=== PATIENT | female | born 1960 | race African-American/Black ===

== ENCOUNTER 2018-04-25 23:08 | Inpatient (IN) | payer OTHER ==
[2018-04-26] MEDS ORDERED: NALOXONE 0.4 MG/ML VIAL ONE ×2 (00:14→01:30)
[2018-04-26 00:15] LABS: Arterial Blood Carboxyhemoglob 1.8 % (0-1.5); Blood O2 Saturation 97.5 % (92-98.5)
[2018-04-26 01:45] LABS: Absolute Lymphocytes (CBC) 0.5 K/uL (0.7-4.9); Absolute Monocytes 0.3 K/uL (0.1-1.3); Absolute Neutrophil 3.9 K/uL (1.8-8.0); Basophils % 0.5 % (0-1.3); Eosinophils % 2.1 % (0-4.4); Hematocrit 44.6 % (36.0-45.0); Lymphocytes % 11.4 % (15.3-44.8); MCH 29.4 pg (27.0-35.0); MPV 8.5 fL (7.6-11.3); Monocytes % 5.6 % (3.3-12.3); RBC Red Blood Cell Count 4.64 M/uL (3.86-4.86)
[2018-04-26 01:47] LABS: Protime INR 1.16
[2018-04-26] MEDS ORDERED: FUROSEMIDE 20 MG/ 2ML VIAL ONE (01:58)
[2018-04-26 01:59] LABS: Urine Blood 3+ (NEG); Urine Glucose NEGATIVE (NEG); Urine Protein 2+ (NEG); Urine Specific Gravity >1.030 (1.005-1.030); Urine pH 5.5 (5.0-7.0)
[2018-04-26] MEDS ORDERED: FUROSEMIDE 40 MG/4 ML VIAL ONE (01:59)
[2018-04-26 02:06] LABS: ALT/SGPT 15 U/L (12-78); AST/SGOT 12 U/L (15-37); Albumin 3.6 g/dL (3.4-5.0); Alkaline Phosphatase 62 U/L (45-117); BUN Blood Urea Nitrogen 13 mg/dL (7-18); Bicarbonate 40 mmol/L (21-32); Bilirubin Direct 0.2 mg/dL (0-0.2); Bilirubin Total 0.5 mg/dL (0.2-1.0); Glucose Level 115 mg/dL (74-106); Magnesium 2.1 mg/dL (1.8-2.4); NT PRO-BNP 468 pg/mL (<125); Potassium 3.8 mmol/L (3.5-5.1); Protein, Total 8.3 g/dL (6.4-8.2); Sodium Level 143 mmol/L (136-145); Troponin (Emerg Dept Use Only) < 0.02 ng/mL (0.0-0.045)
[2018-04-26 02:49] LABS: Urine Bacteria LOADED /HPF (<20); Urine RBC <5 /HPF (NONE SEEN)
[2018-04-26 02:50] LABS: Urine Culture Reflex Order NOT NEEDED
[2018-04-26] MEDS ORDERED: ACETAMINOPHEN 500 MG TAB PO PRN (02:55)
[2018-04-26] MEDS ORDERED: ONDANSETRON 4 MG/2 ML VIAL IV PRN (02:55)
[2018-04-26] MEDS ORDERED: CEFTRIAXONE 1 GM/NS 50 ML 1 GM/50 ML BAG IV ONE (02:59)
[2018-04-26] MEDS ORDERED: CEFTRIAXONE/SWI 1gm 1 GM/10 ML SYR ONE (03:09)
[2018-04-26] MEDS ORDERED: METHYLPREDNISOLONE 125 MG INJ IV SCH (03:14)
--- NOTE | 2018-04-26 03:21 | EDPHYS ---
Physician Documentation [facility] Name: Navarro Baker Age: 58 yrs Sex: Female : 1960 Arrival Date: 04/25/2018 Time: 23:13 Bed 4 Private MD: Leonid Phan ED Physician Jacques Plummer HPI: 04/26 03:05 This 58 yrs old Black Female presents to ER via Wheelchair with complaints of sob. gs 03:05 pt seen lpta at another er dx with hypothyroid and sent home. family concerned as pt gs lethargic and has been like this for a couple of days.. 03:05 Unable to obtain HPI due to patient distress. gs Historical: - Allergies: 01:49 No Known Allergies; mg2 - Home Meds: 04/25 23:45 levothyroxine oral for Hypothyroidism [Active]; hydrocodone-acetaminophen 5-500 mg Oral tl3 tab [Active]; - PMHx: 04/26 01:49 Hypothyroidism; morbid obesity; mg2 - PSHx: 01:49 multiple plates on hip and legs; mg2 - Immunization history:: Adult Immunizations up to date. - Social history:: Smoking status: Patient/guardian denies using tobacco, never smoked. - Ebola Screening: : No symptoms or risks identified at this time. ROS: 03:05 All other systems are negative. gs Exam: 03:05 Head/Face: Normocephalic, atraumatic. Eyes: Pupils equal round and reactive to light, gs extra-ocular motions intact. Lids and lashes normal. Conjunctiva and sclera are non-icteric and not injected. Cornea within normal limits. Periorbital areas with no swelling, redness, or edema. ENT: Nares patent. No nasal discharge, no septal abnormalities noted. Tympanic membranes are normal and external auditory canals are clear. Oropharynx with no redness, swelling, or masses, exudates, or evidence of obstruction, uvula midline. Mucous membranes moist. Neck: Trachea midline, no thyromegaly or masses palpated, and no cervical lymphadenopathy. Supple, full range of motion without nuchal rigidity, or vertebral point tenderness. No Meningismus. Chest/axilla: Normal chest wall appearance and motion. Nontender with no deformity. No lesions are appreciated. 03:05 Abdomen/GI: Soft, non-tender, with normal bowel sounds. No distension or tympany. No guarding or rebound. No evidence of tenderness throughout. Back: No spinal tenderness. No costovertebral tenderness. Full range of motion. Skin: Warm, dry with normal turgor. Normal color with no rashes, no lesions, and no evidence of cellulitis. MS/ Extremity: Pulses equal, no cyanosis. Neurovascular intact. Full, normal range of motion. 03:05 Constitutional: The patient appears lethargic, in obvious distress, severely distressed. 03:05 Constitutional: The patient appears obese. 03:05 Cardiovascular: Rate: bradycardic, Rhythm: regular, Pulses: no pulse deficits are appreciated. 03:05 ECG was reviewed by the Attending Physician. 03:05 Respiratory: severe repiratory distress is noted, Respirations: shallow respirations, that is moderate, Breath sounds: are clear throughout. Vital Signs: 04/25 23:46 BP 117 / 76; Pulse 58; Resp 20; Pulse Ox 20% on R/A; Weight 226.8 kg; Height 5 ft. 4 tl3 in. (162.56 cm); 23:46 Pulse Ox 100% on 15% Non-rebreather mask; tl3 04/26 01:43 BP 155 / 111; Pulse 64; Resp 20; Pulse Ox 100% on 50% BiPAP; mg2 01:53 BP 114 / 58; Pulse 59; Resp 17; Pulse Ox 98% on BiPAP; tl3 02:30 BP 101 / 65; Pulse 55; Resp 20; Temp 97.9(A); Pulse Ox 96% on 50% BiPAP; mg2 03:15 BP 143 / 94; Pulse 64; Resp 18 S; Pulse Ox 100% on 35% BiPAP; ea 07:36 BP 104 / 66; Pulse 48; Resp 20; Pulse Ox 95% on 50% BiPAP; la1 04/25 23:46 Body Mass Index 85.82 (226.80 kg, 162.56 cm) tl3 MDM: 04/25 23:53 Patient medically screened. 04/26 03:05 Differential diagnosis: CHF exacerbation, Chronic Obstructive Pulmonary Disease gs Myocardial Infarction pneumonia. Data reviewed: vital signs, nurses notes. Response to treatment: the patient's symptoms have mildly improved after treatment. ED course: pt not deteriorating on bipap will closely monitor hold intubation. 04/26 00:01 Order name: Basic Metabolic Panel; Complete Time: 02:53 gs 04/26 00:01 Order name: CBC with Diff; Complete Time: 02:53 gs 04/26 00:01 Order name: LFT's; Complete Time: 02:53 gs 04/26 00:01 Order name: Magnesium; Complete Time: 02:53 gs 04/26 00:01 Order name: NT PRO-BNP; Complete Time: 02:53 gs 04/26 00:01 Order name: PT-INR; Complete Time: 02:53 gs 04/26 00:01 Order name: Troponin (emerg Dept Use Only); Complete Time: 02:53 gs 04/26 00:01 Order name: ABG; Complete Time: 01:51 gs 04/26 01:47 Order name: Urine Dipstick--Ancillary (enter results); Complete Time: 02:53 rg2 04/26 02:00 Order name: Urine Microscopic Only; Complete Time: 02:53 mg2 04/26 02:00 Order name: Urine Culture [facility] [place] 04/26 02:54 Order name: Blood Culture* 04/26 02:55 Order name: ABG 04/26 02:59 Order name: ABG Arterial Blood Gas EDCT 04/26 00:01 Order name: XRAY Chest (1 view) 04/26 00:01 Order name: BIPAP 04/26 02:59 Order name: NT PRO-BNP EDCT 04/26 02:59 Order name: NT PRO-BNP EDCT 04/26 02:59 Order name: NT PRO-BNP EDCT 04/26 02:59 Order name: Troponin I EDCT 04/26 02:59 Order name: Troponin I EDCT 04/26 02:59 Order name: Troponin I EDCT 04/26 02:59 Order name: Chest Single View EDCT 04/26 02:59 Order name: Chest Single View EDCT 04/26 03:01 Order name: CBC with Automated Diff EDCT 04/26 03:01 Order name: Comprehensive Metabolic Panel EDCT 04/26 03:01 Order name: Magnesium EDCT 04/26 03:01 Order name: Phosphorus EDCT 04/26 03:01 Order name: T4 Free EDCT 04/26 03:01 Order name: Thyroid Stimulating Hormone EDCT 04/26 00:01 Order name: EKG; Complete Time: 00:02 gs 09/16 00:01 Order name: Cardiac monitoring; Complete Time: 00:32 04/26 00:01 Order name: EKG - Nurse/Tech; Complete Time: 01:43 04/26 00:01 Order name: IV Saline Lock; Complete Time: 01:43 04/26 00:01 Order name: Labs collected and sent; Complete Time: 01:43 04/26 00:01 Order name: O2 Per Protocol; Complete Time: 00:32 04/26 00:01 Order name: O2 Sat Monitoring; Complete Time: 00:32 04/26 00:01 Order name: Urine Dipstick-Ancillary (obtain specimen); Complete Time: 01:43 04/26 02:59 Order name: CONS Physician Consult [facility] 04/26 02:59 Order name: Heart Healthy [facility] 04/26 02:59 Order name: Chest Single View EDCT EC:05 Rate is 49 beats/min. Rhythm is regular. TX interval is prolonged. QRS interval is gs normal. QT interval is normal. T waves are Flattened. Clinical impression: NSR w/ Non-specific ST/T Changes. Interpreted by me. Administered Medications: 01:42 Drug: NARcan 0.4 mg Route: IVP; Site: right jugular; mg2 01:52 Follow up: Response: No adverse reaction tl3 01:52 Follow up: Response: No change in condition tl3 01:51 Drug: NARcan 0.4 mg Route: IVP; Site: right jugular; tl3 01:52 Follow up: Response: No change in condition tl3 01:56 Drug: Lasix 60 mg Route: IVP; Site: right jugular; mg2 02:43 Follow up: Response: No adverse reaction mg2 03:51 Drug: Rocephin - (cefTRIAXone) 1 grams {Note: Right EJ.} Route: IVPB; Infused Over: 30 ea mins; Site: Other; 04:15 Follow up: Response: No adverse reaction; IV Status: Completed infusion ea Disposition: 03:05 Critical Care:. Disposition: 04/26/18 03:20 Hospitalization ordered by Bayron Iyer for Inpatient Admission. Preliminary diagnosis is Acute respiratory failure with hypercapnia. - Bed requested for Intensive Care Unit. - Status is Inpatient Admission. la1 - Condition is Fair. - Problem is an acute exacerbation. - Symptoms have improved. UTI on Admission? Yes Critical care time excluding procedures: 03:05 Critical care time: Bedside Care: 10 minutes, Consultation: 10 minutes, Family gs Intervention: 10 minutes. Total time: 30 minutes Signatures: Dispatcher [employer] EDMS Irene Aragon RN MIHAELA Andrew Martinez RN RN la1 Soledad Sargent, RN RN Jacques Meyer MD MD gs Lowrey, Tammy, RN RN tl3 Jarocho Gaytan RN RN mg2 Corrections: (The following items were deleted from the chart) 03:44 03:20 Hospitalization Ordered by Bayron Iyer MD for Inpatient Admission. Preliminary diagnosis is Acute respiratory failure with hypercapnia. Bed requested for Intensive Care Unit. Status is Inpatient Admission. Condition is Fair. Problem is an acute exacerbation. Symptoms have improved. UTI on Admission? Yes. 05:09 03:44 04/26/2018 03:20 Hospitalization Ordered by Bayron Iyer MD for Inpatient mw Admission. Preliminary diagnosis is Acute respiratory failure with hypercapnia. Bed requested for [facility] ER HOLD. Status is Inpatient Admission. Condition is Fair. Problem is an acute exacerbation. Symptoms have improved. UTI on Admission? Yes. 08:05 05:09 04/26/2018 03:20 Hospitalization Ordered by Bayron Iyer MD for Inpatient la1 Admission. Preliminary diagnosis is Acute respiratory failure with hypercapnia. Bed requested for Intensive Care Unit. Status is Inpatient Admission. Condition is Fair. Problem is an acute exacerbation. Symptoms have improved. UTI on Admission? Yes.
--- NOTE | 2018-04-26 03:21 | ER ---
Nurse's Notes [facility] Name: Navarro Baker Age: 58 yrs Sex: Female : 1960 Arrival Date: 04/25/2018 Time: 23:13 Bed 4 Private MD: Leonid Phan Diagnosis: Acute respiratory failure with hypercapnia Presentation: 04/25 23:39 Presenting complaint: Patient states: seen at [facility], left not feeling any tl3 better. Dx with UTI given Rx for Macrobid, C/o of excessive tiredness. Transition of care: patient was not received from another setting of care. Onset of symptoms was April 19, 2018. Risk Assessment: Do you want to hurt yourself or someone else? Patient reports no desire to harm self or others. Initial Sepsis Screen: Does the patient meet any 2 criteria? No. Patient's initial sepsis screen is negative. Does the patient have a suspected source of infection? No. Patient's initial sepsis screen is negative. Care prior to arrival: None. 23:39 Method Of Arrival: Wheelchair tl3 23:39 Acuity: ALEJANDRINA 3 tl3 Triage Assessment: 23:45 Headache History:. tl3 23:46 General: Appears distressed, uncomfortable, obese, Behavior is anxious. Pain: Complains tl3 of pain in arthritic pain in hips and joints. EENT: No signs and/or symptoms were reported regarding the EENT system. Neuro: Level of Consciousness is awake, alert, obeys commands, lethargic, Oriented to person, place, time, situation, Appropriate for age. Cardiovascular: Patient's skin is warm and dry. Respiratory: Airway is patent Respiratory effort is even, labored, Respiratory pattern is regular, symmetrical, Breath sounds are diminished bilaterally. GI: No signs and/or symptoms were reported involving the gastrointestinal system. : Reports dx with UTI tonight at [place]. Derm: No signs and/or symptoms reported regarding the dermatologic system. Musculoskeletal: Reports has multiple plates and pins in hips and legs. Historical: - Allergies: 04/26 01:49 No Known Allergies; mg2 - Home Meds: 04/25 23:45 levothyroxine oral for Hypothyroidism [Active]; hydrocodone-acetaminophen 5-500 mg Oral tl3 tab [Active]; - PMHx: 04/26 01:49 Hypothyroidism; morbid obesity; mg2 - PSHx: 01:49 multiple plates on hip and legs; mg2 - Immunization history:: Adult Immunizations up to date. - Social history:: Smoking status: Patient/guardian denies using tobacco, never smoked. - Ebola Screening: : No symptoms or risks identified at this time. Screenin/15 23:50 Abuse screen: Denies threats or abuse. Nutritional screening: No deficits noted. tl3 Tuberculosis screening: No symptoms or risk factors identified. Fall Risk Secondary diagnosis (15 points) impaired mobility. Assessment: 23:50 Reassessment: No changes from previously documented assessment. Patient and/or family tl3 updated on plan of care and expected duration. Pain level reassessed. Pain: Complains of pain in hips, back and legs. 04/26 00:26 Reassessment: BIPAP started. mg2 01:53 Reassessment: No changes from previously documented assessment. pts condition has not tl3 changed, one on one care for the last two hours. 02:32 General: Appears distressed, Behavior is calm, cooperative. Neuro: Level of mg2 Consciousness is awake, alert, obeys commands, Oriented to person, place, time, situation. Cardiovascular: Capillary refill < 3 seconds Patient's skin is warm and dry. Respiratory: Airway is patent Respiratory effort is even, unlabored, Respiratory pattern is regular, symmetrical. GI: No signs and/or symptoms were reported involving the gastrointestinal system. : Ruvalcaba in place Urine is cloudy. EENT: No signs and/or symptoms were reported regarding the EENT system. Derm: Skin is intact, Skin is normal for ethnicity. Musculoskeletal: Circulation, motion, and sensation intact. 02:48 Reassessment: Patient appears in no apparent distress at this time. patient is sleeping mg2 on bed. 03:30 Reassessment: Patient and/or family updated on plan of care and expected duration. Pain ea level reassessed. Pt remains on BiPAP, tolerating well. No s/s of pain or discomfort noted at this time. Awakens to verbal stimuli, pt obeys commands. Ox 3. 04:26 Reassessment: Patient and/or family updated on plan of care and expected duration. Pain ea level reassessed. Pt awakens to verbal stimuli, obeys commands, alert and oriented x 3. No s/s of pain or discomfort noted at this time. Respiratory at bedside. 07:30 Reassessment: Report called to Mer CHAIREZ in ICU. ea Vital Signs: 04/25 23:46 BP 117 / 76; Pulse 58; Resp 20; Pulse Ox 20% on R/A; Weight 226.8 kg; Height 5 ft. 4 tl3 in. (162.56 cm); 23:46 Pulse Ox 100% on 15% Non-rebreather mask; tl3 04/26 01:43 BP 155 / 111; Pulse 64; Resp 20; Pulse Ox 100% on 50% BiPAP; mg2 01:53 BP 114 / 58; Pulse 59; Resp 17; Pulse Ox 98% on BiPAP; tl3 02:30 BP 101 / 65; Pulse 55; Resp 20; Temp 97.9(A); Pulse Ox 96% on 50% BiPAP; mg2 03:15 BP 143 / 94; Pulse 64; Resp 18 S; Pulse Ox 100% on 35% BiPAP; ea 07:36 BP 104 / 66; Pulse 48; Resp 20; Pulse Ox 95% on 50% BiPAP; la1 04/25 23:46 Body Mass Index 85.82 (226.80 kg, 162.56 cm) tl3 ED Course: 04/25 23:13 Patient arrived in ED. ds1 23:31 Leonid Phan is Private Physician. ds1 23:34 Jacques Plummer MD is Attending Physician. gs 23:39 Mary Fay, MIHAELA is Primary Nurse. tl3 23:41 Triage completed. tl3 23:46 Arm band placed on left wrist. tl3 23:50 Patient has correct armband on for positive identification. pt remains in wheel chair. tl3 Pulse ox on. NIBP on. 23:50 No provider procedures requiring assistance completed. tl3 04/26 00:25 secured entrance monitor on. Door closed. Warm blanket given. Head of bed elevated. mg2 00:45 X-ray completed. Portable x-ray completed in exam room. Patient tolerated procedure mh1 well. 00:47 XRAY Chest (1 view) In Process Unspecified. EDMS 01:32 Missed attempt(s): 18 gauge in left antecubital area. Bleeding controlled, band aid fc applied, catheter tip intact. 01:43 Inserted saline lock: 20 gauge in right EJ, using aseptic technique. Blood collected. mg2 by Dr Plummer. 01:44 Urine collected: Ruvalcaba catheter specimen, cloudy. mg2 01:53 One-on-one care X 120 minutes. tl3 01:53 Missed attempt(s): 22 gauge 24 gauge in left wrist. forearm. tl3 01:56 Ruvalcaba cath inserted, using sterile technique, 18 Fr., by me, balloon inflated, urine tl3 specimen collected. 02:34 EKG done, by ED staff, reviewed by Jacques Plummer MD. mg2 03:19 Bayron Iyer MD is Hospitalizing Provider. gs 04:07 Patient admitted, IV remains in place. ea 07:36 Accessed peripheral vein via ultrasound, utilizing dynamic ultrasound technique using la1 18G Sureflo IV catheter. Administered Medications: 01:42 Drug: NARcan 0.4 mg Route: IVP; Site: right jugular; mg2 01:52 Follow up: Response: No adverse reaction tl3 01:52 Follow up: Response: No change in condition tl3 01:51 Drug: NARcan 0.4 mg Route: IVP; Site: right jugular; tl3 01:52 Follow up: Response: No change in condition tl3 01:56 Drug: Lasix 60 mg Route: IVP; Site: right jugular; mg2 02:43 Follow up: Response: No adverse reaction mg2 03:51 Drug: Rocephin - (cefTRIAXone) 1 grams {Note: Right EJ.} Route: IVPB; Infused Over: 30 ea mins; Site: Other; 04:15 Follow up: Response: No adverse reaction; IV Status: Completed infusion ea Outcome: 03:20 Decision to Hospitalize by Provider. gs 04:07 Admitted to ER Hold. Please see [facility] for further documentation. ea 07:36 Condition: stable la1 08:05 Patient left the ED. la1 Signatures: Dispatcher [employer] EDMS Irene Del Angel 1 Sehrine Pradhan RN MIHAELA Alda Acosta ds1 Andrew Martinez RN RN la1 Soledad Sargent RN RN ea Starr, Gregory, MD MD Mary Fay RN RN tl3 Jarocho Gaytan RN RN mg2 Corrections: (The following items were deleted from the chart) 02:33 01:56 Reassessment: tl3 mg2 02:38 02:30 BP 99 / 66; Pulse 58bpm; Resp 20bpm; Pulse Ox 96% 02 50% BiPAP; Temp 97.9F mg2 Axillary; mg2 02:39 02:30 BP 101 / 65; Pulse 58bpm; Resp 20bpm; Pulse Ox 96% 02 50% BiPAP; Temp 97.9F mg2 Axillary; mg2
[2018-04-26] MEDS ORDERED: METHYLPREDNISOLONE 40 MG INJ ONE (03:25)
[2018-04-26] MEDS: IPRATROPIUM BROM 0.5MG/2.5ML NEB SCH ×2 (04:00→07:40)
[2018-04-26 04:41] LABS: Arterial Blood Carboxyhemoglob 1.9 % (0-1.5); Blood Gas Oxyhemoglobin 84.3 % (94-97); Blood O2 Saturation 86.7 % (92-98.5)
[2018-04-26 05:59] LABS: Arterial Blood Carboxyhemoglob 1.8 % (0-1.5); Blood O2 Saturation 93.5 % (92-98.5)
[2018-04-26] MEDS: ALBUTEROL 2.5 MG/3 ML NEB SOL NEB SCH ×3 (07:40→19:26)
[2018-04-26] MEDS ORDERED: ALBUTEROL 2.5 MG/3 ML NEB SOL ONE (07:43)
[2018-04-26] MEDS ORDERED: IPRATROPIUM BROM 0.5MG/2.5ML ONE (07:44)
--- NOTE | 2018-04-26 07:51 | P.HP ---
Certification for Inpatient Patient admitted to: Inpatient With expected LOS: >2 Midnights Patient will require the following post-hospital care: None Practitioner: I am a practitioner with admitting privileges, knowledge of patient current condition, hospital course, and medical plan of care. Services: Services provided to patient in accordance with Admission requirements found in Title 42 Section 412.3 of the Code of Federal Regulations Patient History Date of Service: 04/26/18 Reason for admission: Lethargic; difficult to arouse History of Present Illness: Patient is a 58-year-old female who has a history of morbid obesity with a BMI greater than 80, undiagnosed obstructive sleep apnea/ obesity hypoventilation syndrome, infrequent urinary tract infections with bilateral lower extremity edema who comes into the emergency room lethargic. She had just recently left [facility] emergency room at midnight after being treated for a urinary tract infection but they brought her here shortly afterwards after stopping for food. She was having a hard time arousing and just moaning. She stays in her room for the most part of everyday. The last time she was active was 2 weeks ago when she went outside to watch her granddaughter on the porch. But according to her daughter, those days are far and few and for the most part she just stays in her bed. She had visited with a bariatric surgeon; however, she did not go back for a follow-up because he wanted her to lose too much weight too quickly. Patient has severe hypercapnia secondary to obesity hypoventilation syndrome. Patient is much more awake at this time. At her baseline I think she lives in an acidotic state. However, we will put her on BiPAP and try to get her CO2 down her pH stabilized. She will go to ICU and will get pulmonary consultation as well as further cardiac workup. Patient's long-term prognosis is poor unless she has some kind of bariatric intervention in the very near future. Allergies No Known Allergies Allergy (Unverified 04/26/18 03:49) - Past Medical/Surgical History -: hypothyroidism -: morbid obesity -: multiple plates on hips and legs - Family History Father Family History: Reviewed- Non-Contributory - Social History Smoking Status: Never smoker Alcohol use: No CD- Drugs: No Caffeine use: No Place of Residence: Home Review of Systems 10-point ROS is otherwise unremarkable Physical Examination - Vital Signs Temperature: 98 F Blood Pressure: 117/81 Pulse: 54 Respirations: 18 Pulse Ox (%): 97 - Physical Exam General: Alert, In no apparent distress, Cooperative, Unresponsive, Obese HEENT: Atraumatic, PERRLA, Mucous membr. moist/pink, EOMI, Sclerae nonicteric Neck: Supple, 2+ carotid pulse no bruit, No LAD, Without JVD or thyroid abnormality Respiratory: Clear to auscultation bilaterally, Normal air movement Cardiovascular: Regular rate/rhythm, Normal S1 S2, No murmurs Gastrointestinal: Normal bowel sounds, Soft and benign, Non-distended, No tenderness Musculoskeletal: No clubbing, No swelling, No tenderness Integumentary: No rashes Neurological: Normal speech, Normal tone, Sensation intact, Cranial nerves 3-12 intact, Normal affect, Abnormal strength Lymphatics: No axilla or inguinal lymphadenopathy - Studies Laboratory Data (last 24 hrs) 04/26/18 01:25: PT 13.7 H, INR 1.16 04/26/18 01:25: WBC 4.8, Hgb 13.6, Hct 44.6, Plt Count 169 04/26/18 01:25: Sodium 143, Potassium 3.8, BUN 13, Creatinine 1.20, Glucose 115 H, Magnesium 2.1, Total Bilirubin 0.5, AST 12 L, ALT 15, Alkaline Phosphatase 62 Assessment & Plan - Plan Assessment: 1. Morbid obesity-BMI greater than 80 2. Obesity hypoventilation syndrome 3. Urinary tract infection 4. Hypercapnic respiratory failure 5. Hypoxemia 6. Diastolic heart failure 7. Bilateral lower extremity edema Plan: 1. Echocardiogram if it has not been performed in the last 6 months 2. We will start patient on an GIULIANO inhibitor or an ARB 3. We will start patient on a Beta kayleen 4. Cardiology consultation 5. Gentle diuresis 6. Strict I's and O's 7. Repeat CXR 8. Daily weights 9. Education regarding diet and treatment of congestive heart failure 10. BiPAP support 11. Repeat ABGs 12. Pulmonary consultation 13. GI and DVT prophylaxis Discharge Plan: Home Plan to discharge in: Greater than 2 days - Advance Directives Does patient have a Living Will: No Does patient have a Durable POA for Healthcare: No - Code Status/Comfort Care Code Status Assessed: Yes Code Status: Full Code Critical Care: Yes Time Spent Managing PTS Care (In Minutes): 60
[2018-04-26 08:08] LABS: ALT/SGPT 15 U/L (12-78); AST/SGOT 23 U/L (15-37); Albumin 3.8 g/dL (3.4-5.0); Alkaline Phosphatase 64 U/L (45-117); BUN Blood Urea Nitrogen 12 mg/dL (7-18); Bilirubin Total 0.5 mg/dL (0.2-1.0); Glucose Level 123 mg/dL (74-106); Magnesium 2.3 mg/dL (1.8-2.4); Phosphorus 4.6 mg/dL (2.5-4.9); Potassium 5.3 mmol/L (3.5-5.1); Protein, Total 8.6 g/dL (6.4-8.2); Sodium Level 142 mmol/L (136-145); Troponin I < 0.02 ng/mL (0.0-0.045)
[2018-04-26 08:17] LABS: Bicarbonate 42 mmol/L (21-32)
--- NOTE | 2018-04-26 08:27 | RAD REPORT ---
EXAM DESCRIPTION: RAD - Chest Single View - 04/26/2018 12:46 am CLINICAL HISTORY: Shortness of breath COMPARISON: None. TECHNIQUE: AP portable chest image was obtained 0042 hours . FINDINGS: Shallow inspiration motion degraded study is further limited by very large body habitus. N o dense consolidation seen. Lateral lower left lung field is particularly limited. Vasculature and ru ng markings do appear mildly prominent. Patient has a pronounced cardiomegaly even with the exam limi tations. Trachea is midline. No pneumothorax or large pleural effusion. No gross bony abnormality see n. No acute aortic findings suspected. IMPRESSION: Significantly limited portable study shows evidence for mild failure or volume overload. Prominent cardiomegaly. Mild pneumonia findings could be masked by exam limitations.
--- NOTE | 2018-04-26 08:36 | RAD REPORT ---
EXAM DESCRIPTION: RAD - Chest Single View - 04/26/2018 6:48 am CLINICAL HISTORY: Respiratory failure COMPARISON: April 26 TECHNIQUE: AP portable chest image was obtained 0632 hours . FINDINGS: Exam remains significantly limited by technique, shallow inspiration and very large body h abitus. Significant motion degradation is present as well. Prominent cardiomegaly remains. Vasculatur e is prominent. Interstitial markings are prominent. This could be edema, infiltrate, artifact or chana e combination of these factors. No pneumothorax or large pleural effusion. IMPRESSION: Exam remains significantly limited. Patient has a prominent cardiomegaly with mild failu re or volume overload certainly possible.
[2018-04-26] MEDS: SOD POLYSTYREN SUL 15 GM/60 ML UCUP PO ONE ×2 (08:42→09:19)
[2018-04-26] MEDS ORDERED: FUROSEMIDE 40 MG/4 ML VIAL IV SCH (09:00)
[2018-04-26] MEDS: ENOXAPARIN 40 MG/0.4 ML SQ SCH (09:18)
--- NOTE | 2018-04-26 09:30 | PN ---
Date of Progress Note: 04/26/2018 Subjective: The patient seen and examined, chart reviewed, and case discussed with RN. The patient is somnolent, but able to wake up and answer questions, somewhat confused and lethargic. Review of Systems: Limited due to the patient's medical condition as reports shortness of breath. No pain. Medications: List reviewed. Physical Examination: Vital Signs: Temperature 98, heart rate 54, blood pressure 117/81, respirations 18, O2 97% on BiPAP, 50% FiO2. General: Asleep, but arousable, slightly confused, morbidly obese female. CV: S1, S2. Peripheral pulses present. No murmurs. Respiratory: Diminished breath sounds. No wheezing. No use of accessory muscles. Gastrointestinal: Abdomen is soft, nontender, nondistended. Positive bowel sounds. Extremities: No clubbing, cyanosis. The patient does have some edema. Neurologic: Nonfocal. Skin: The patient has multiple abdominal panuses, unable to properly assess due to her condition. We will defer reassessment once moved into bariatric bed. Laboratory Data: Sodium 142, potassium 5.3, chloride 100, CO2 42, BUN 12, creatinine 1.3, glucose 123, calcium 8.8. Troponin less than 0.02. TSH 27. ABG, pH 7.17, pCO2 114, pO2 80, bicarb 39.6. Blood cultures and urine culture pending. Assessment And Plan: A 58-year-old female with: 1. Acute respiratory failure with hypercapnia. 2. CO2 narcosis, encephalopathy. We will continue BiPAP, repeat ABG. Dr. Hercules has been consulted. We will adjust settings. 3. Morbid obesity, BMI 85. 4. Hypothyroidism. We will start on levothyroxine. The patient had stopped taking her medications previously. 5. Acute cystitis without hematuria. Continue IV antibiotics. Follow up on cultures. Plan: Obtain PICC line. Continue monitoring in ICU setting. Repeat ABG. SA/MODL Voice ID: [id number] Report ID: [id number] DYANA
--- NOTE | 2018-04-26 10:15 | P.CNS ---
Date of Consult: 04/26/18 Reason for Consult: Respiratory failure hypothyroidism Chief Complaint: Lethargic; difficult to arouse History of Present Illness: Patient is 58 years of age for poorly obese unresponsive on a BiPAP was admitted with hypoxic hypercapnic respiratory failure history of recent UTIs bilateral lower extremity edema patient was recently discharged from the emergency room with a diagnosis of UTI. Patient was evaluated for bariatric surgery she is ambulatory severely hypothyroid is not on any medication Allergies No Known Allergies Allergy (Unverified 04/26/18 03:49) Home Medications: Hydrocodone 10/APAP 325 [[place] 10/325] 1 tab PO Q6H PRN 04/26/18 - Past Medical/Surgical History -: hypothyroidism -: morbid obesity -: multiple plates on hips and legs - Family History Father Family History: Reviewed- Non-Contributory - Social History Smoking Status: Never smoker Alcohol use: No CD- Drugs: No Caffeine use: No Place of Residence: Home Review of Systems is unable to be obtained Physical Examination Temp Pulse Resp BP Pulse Ox 98 F 54 18 117/81 97 04/26/18 09:24 04/26/18 09:24 04/26/18 09:24 04/26/18 09:24 04/26/18 09:24 General: Unresponsive, Other (Morbidly obese) Neck: Supple Respiratory: Clear to auscultation bilaterally Cardiovascular: No edema, Normal S1 S2 Laboratory Data (last 24 hrs) 04/26/18 01:25: PT 13.7 H, INR 1.16 04/26/18 01:25: WBC 4.8, Hgb 13.6, Hct 44.6, Plt Count 169 04/26/18 01:25: Sodium 143, Potassium 3.8, BUN 13, Creatinine 1.20, Glucose 115 H, Magnesium 2.1, Total Bilirubin 0.5, AST 12 L, ALT 15, Alkaline Phosphatase 62 - Problems (1) Respiratory failure with hypoxia and hypercapnia Current Visit: Yes Status: Acute Plan: Patient is 58 years of age admitted with hypoxic hypercapnic respiratory failure hypothyroidism currently on a BiPAP repeat blood gases may need to be intubated continue with IV Synthroid increased to 25 mcg daily Dc diuretics and ipratropium agree with steroids for now Qualifiers: Chronicity: acute on chronic Qualified Code(s): J96.21 - Acute and chronic respiratory failure with hypoxia; J96.22 - Acute and chronic respiratory failure with hypercapnia
[2018-04-26] MEDS ORDERED: RSI MEDICATION KIT IV ONE (10:28)
[2018-04-26] MEDS ORDERED: NA CHLORIDE 0.9% 1,000 ML ONE (10:33)
[2018-04-26] MEDS ORDERED: PROPOFOL 1,000 MG/100 ML VIAL IV ONE ×2 (10:36→13:31)
[2018-04-26] MEDS: PROPOFOL 1,000 MG/100 ML VIAL IV PRN ×5 (10:40→22:50)
[2018-04-26] MEDS ORDERED: NA CHLORIDE 0.9% 250 ML IV PRN (10:58)
--- NOTE | 2018-04-26 10:58 | P.OP ---
Date of Service: 04/26/18 (Endotracheal intubation) Findings and Operative Technique Patient is 58 years of age morbidly obese admitted with hypercapnic respiratory failure her hypercapnia had worsened despite BiPAP patient is very hypothyroid Patient was emergently intubated using a size 7-1/2 endotracheal tube vocal cords well-visualized uncomplicated intubation then settings as per protocol
[2018-04-26] MEDS: IPRATROPIUM BROM 0.5MG/2.5ML NEB PRN (11:00)
--- NOTE | 2018-04-26 12:09 | RAD REPORT ---
EXAM DESCRIPTION: RAD - Chest Single View - 04/26/2018 11:52 am CLINICAL HISTORY: ETT placement COMPARISON: April 26 TECHNIQUE: AP portable chest image was obtained 1136 hours . FINDINGS: Supine portable imaging was performed. There is substantial motion degradation. Endotracheal tube is in place. Tip is at the origin of the right mainstem bronchus. NG or feeding tub e is in place. Tip extends below the diaphragm, off the field of view. Cardiomediastinal silhouette and lung parenchyma not clearly different. No pneumothorax identifiable. ET tube position was telephoned to Mer in the ICU 12:03 p.m. IMPRESSION: Endotracheal tube in place with the tip at the right mainstem bronchus. NG tube or feeding tube is in place extending below the diaphragm, off the field of view.
--- NOTE | 2018-04-26 12:10 | RAD REPORT ---
EXAM DESCRIPTION: RAD - Abdomen 1 View (KUB) - 04/26/2018 11:51 am CLINICAL HISTORY: Feeding tube or NG tube placement COMPARISON: None. FINDINGS: Supine portable imaging is obtained. Exam is limited in detail due to motion and very larg e patient body habitus. Feeding tube has been placed. Tip is in the proximal stomach. No abnormal ketty d or kink identifiable.
[2018-04-26 12:36] LABS: Arterial Blood Carboxyhemoglob 1.9 % (0-1.5); Blood Gas Oxyhemoglobin 84.6 % (94-97); Blood O2 Saturation 86.9 % (92-98.5)
--- NOTE | 2018-04-26 12:52 | P.OP ---
Preoperative diagnosis: Need for Venous Access Postoperative diagnosis: Need for Venous Access Primary procedure: Placement of Right Subclavian Central Venous Catheter Anesthesia: Local 1% lidocaine Estimated blood loss: <5cc Specimen: None Findings: Super Morbid Obesity, dark red non-pulsatile blood returned Complications: None Implants: Triple lumen central venous catheter Transferred to: ICU Condition: Serious
[2018-04-26] MEDS: LEVOTHYROXINE SODIUM 100 MCG VIAL IV SCH (13:18)
[2018-04-26 14:20] LABS: Arterial Blood Carboxyhemoglob 2.4 % (0-1.5); Blood Gas Oxyhemoglobin 91.4 % (94-97); Blood O2 Saturation 94.1 % (92-98.5)
[2018-04-26 14:57] LABS: Absolute Lymphocytes (CBC) 0.5 K/uL (0.7-4.9); Absolute Monocytes 0.2 K/uL (0.1-1.3); Absolute Neutrophil 5.4 K/uL (1.8-8.0); Basophils % 0.1 % (0-1.3); Eosinophils % 0.1 % (0-4.4); Hematocrit 47.3 % (36.0-45.0); Lymphocytes % 8.4 % (15.3-44.8); MCH 28.6 pg (27.0-35.0); MPV 8.8 fL (7.6-11.3); Monocytes % 2.6 % (3.3-12.3); RBC Red Blood Cell Count 4.98 M/uL (3.86-4.86)
--- NOTE | 2018-04-26 15:04 | RAD REPORT ---
EXAM DESCRIPTION: RAD - Chest Single View - 04/26/2018 2:11 pm CLINICAL HISTORY: Repositioning of endotracheal tube COMPARISON: April 26 TECHNIQUE: AP portable chest image was obtained 1358 hours . FINDINGS: Motion degradation is still present. Enlarged cardiomediastinal silhouette is still presen t. Endotracheal tube has been retracted slightly. Tip is in good position mid aortic arch level. IMPRESSION: ET tube is in good position mid aortic arch level.
[2018-04-26] MEDS: CEFTRIAXONE/SWI 1gm 1 GM/10 ML SYR IV SCH (17:06)
[2018-04-26] MEDS: METHYLPREDNISOLONE 40 MG INJ IV SCH (17:06)
[2018-04-26] MEDS: LORazepam 2 MG/ML VIAL IV PRN ×2 (18:16→23:20)
[2018-04-26] MEDS ORDERED: HYDRALAZINE HCL 20 MG/ML VIAL IV PRN (18:24)
--- NOTE | 2018-04-26 18:42 | CON ---
Date of Consultation: 04/26/2018 Reason For Consultation: Central venous access. Brief History Of Present Illness: The patient is a 58-year-old female with a histor y of super morbid obesity with a BMI of approximately 86, who has a history of obesity, hypoventilati on syndrome and cortical undiagnosed obstructive sleep apnea, and urinary tract infections, who prese nts with bilateral lower extremity edema and lethargy. She had been at [facility] at midnight after being treated for urinary tract infection. However, she had food and went home and family had difficult time arousing her this morning and as such, brought her to the emergency luis with the above-stated complaint. She is extremely active by family's report. I am unable to obtai n any history as the patient is currently intubated in the ICU. According to records, the patient re richie in bed the majority of the day. I was consulted for central venous access as a PICC line was u nsuccessful in the emergency room. Past Medical History: Significant for significant hypothyroidism, morbid obesity. Past Surgical History: Multiple plates on hips and legs. Family History: Unable to obtain. Social History: Unable to obtain, however, records shows there is a denial of smoking, alcohol, or r ecreational drug use. Allergies: NO KNOWN DRUG ALLERGIES BY THE MEDICAL RECORD. Home Medications: Included hydrocodone only and I am unable to verify this as the patient again is i ntubated currently. Review of Systems: Unable to obtain. Physical Examination: Vital Signs: At the time of my examination, her vital signs were a pulse of 54, blood pressure 117/8 1, respiratory rate was 18 on the ventilator, her oxygen saturation was 97% on a 30% oxygen, inspired . General: The patient has super morbid obesity, weighing over 500 pounds. Her BMI approaches the 86 to possibly 90 range. She is intubated and she opens eyes to noxious stimuli and moves to noxious st imuli purposefully. HEENT: Difficult to obtain an accurate exam due to significant obesity, but there are no obvious les ions. Neck: JVD is impossible to determine due to her body habitus. Chest: Normal expansion and excursion. Cardiovascular: Currently regular rate and rhythm. Pulmonary: Difficult to auscultate decreased breath sounds bilaterally. Abdomen: Obese. Extremities: Also morbidly obese. No other findings. Skin: However, I could not perform an examination of her back skin at this time. Laboratory Data: Revealed a white blood count of 4.8, hemoglobin 13.6, hematocrit of 44.6, platelet count is 169. Coagulation showed a PT of 13.7, INR 1.16. Her sodium was 143, potassium was 5.3, chl oride 100, carbon dioxide 42, BUN 12, creatinine 1.3, glucose is 123, calcium is 8.8, phosphorus 4.6, magnesium 2.3, total bilirubin 0.5, AST 23, ALT 15, alkaline phosphatase is 64. Troponin I less anish n 0.01 and current second one is pending. Her proBNP was 580. Her free T4 was 0.42. Her TSH was 27 .4. She had imaging performed, which included a chest x-ray, which was officially read on April 26, as endotracheal tube in place with the tip of the right mainstem bronchus. NG tube for feeding t ube is in place extending below the diaphragm off the field of view. She additionally had a chest x- ray in the emergency room, which officially read as exam, remained significant limited. The patient has prominent cardiomegaly with mild failure or volume overload a certain possibility. She had a KUB x-ray performed as well, which was officially read as supine portable images obtained and exam is li mited due to motion very large patient body habitus. Feeding tube has been placed, tip is in the pro ximal stomach. No abnormal band or kink identifiable. Assessment And Plan: This is a 58-year-old female, who comes in with multiple medical problems and i ncluding respiratory failure and IV access was very difficult at this time. As such, I was consulted to place a central venous catheter. I have explained the risks, benefits, and alternatives of the p lacement of a central venous catheter including, but not limited to bleeding, infection, damage to avilez rrounding tissues, pneumothorax or collapsed lung, need for further operations and procedures. The p kassandra's family agrees. Her daughter is present as well as her granddaughter and the consent was obt ained this time from the family members. LEONEL/FOREST Voice ID: [id number] Report ID: [id number]
[2018-04-26] MEDS: FAMOTIDINE 20 MG/2 ML VIAL IV SCH (20:08)
[2018-04-26] MEDS: FENTANYL CITR 100 MCG/2 ML IV PRN (20:28)
[2018-04-26] MEDS ORDERED: CEFTRIAXONE 1 GM/NS 50 ML 1 GM/50 ML BAG IV SCH (21:00)
--- NOTE | 2018-04-26 23:42 | OP ---
Date of Procedure: 04/26/2018 Surgeon: John Alarcon MD, Preoperative Diagnosis: Need for venous access. Postoperative Diagnosis: Need for venous access. Procedure Performed: Placement of a right subclavian central venous catheter. Anesthesia: Local 1% lidocaine without epinephrine. Estimated Blood Loss: Less than 5 cc. Specimen: None. Findings: Super morbid obesity. Dark red nonpulsatile blood returned. Complications: None. Implants: Triple lumen central venous catheter. The patient remained in ICU in serious condition. Additional equipment used, micro introducer set. Procedure In Detail: After informed consent was obtained, the patient was prepped and draped in the usual sterile fashion. After adequate anesthesia was achieved, using anatomic landmarks, I anestheti zed the tract under the right clavicle to the tract of the right subclavian vein. I then placed the micro introducer needle into the right subclavian vein using anatomic landmarks on the first attempt without incident or complication. Dark red nonpulsatile blood was returned. The micro wire was adva nced. The needle was removed at this time, and using the Seldinger technique throughout, I then made a small incision around the wire at the insertion site to allow for placement of an introducer sheat h. The micro introducer sheath was then placed, and the wire out was called at this time, pulling th e micro wire out and placing on the back table. Dark red nonpulsatile blood was returned once again, and the patient remained in Trendelenburg position throughout the procedure. After the micro introd ucer sheath was positioned appropriately, the standard wire was then placed through this micro introd ucer sheath and the introducer sheath was removed. I then sequentially dilated up the tract using th e dilator and placed the central venous catheter over the wire using Seldinger technique. The wire o ut was called once again for the second time, and the standard wire was placed on the back table next to the micro wire. The catheter was in good anatomic position, and all ports returned dark red nonp ulsatile blood and flushed quite easily. They were all flushed completely with saline and locked at this time with caps. I then secured the catheter to the anterior chest wall using the nylon sutures attached and placed a Biopatch and sterile dressing over the top. The patient tolerated the procedur e well without evidence of complication, remained in the ICU in serious condition. All counts were c orrect at the end of the case. The patient was then removed from the Trendelenburg position, and a s tandard stat chest x-ray will be performed to verify position. All counts were correct at the end of the case. LEONEL/FOREST Voice ID: [id number] Report ID: [id number]
[2018-04-27] MEDS: METHYLPREDNISOLONE 40 MG INJ IV SCH ×3 (00:56→19:07)
[2018-04-27] MEDS: FENTANYL CITR 100 MCG/2 ML IV PRN ×2 (02:08→05:38)
[2018-04-27] MEDS: ALBUTEROL 2.5 MG/3 ML NEB SOL NEB SCH ×4 (02:11→19:49)
[2018-04-27] MEDS: PROPOFOL 1,000 MG/100 ML VIAL IV PRN (02:50)
[2018-04-27] MEDS: LORazepam 2 MG/ML VIAL IV PRN ×2 (02:52→06:08)
[2018-04-27] MEDS: CEFTRIAXONE/SWI 1gm 1 GM/10 ML SYR IV SCH ×2 (05:23→19:07)
[2018-04-27] MEDS: LEVOTHYROXINE SODIUM 100 MCG VIAL IV SCH (05:25)
[2018-04-27 05:28] LABS: Arterial Blood Carboxyhemoglob 1.9 % (0-1.5); Blood Gas Oxyhemoglobin 94.7 % (94-97)
[2018-04-27] MEDS ORDERED: LEVOTHYROXINE SODIUM 100 MCG VIAL IV SCH (06:00)
[2018-04-27] MEDS ORDERED: LEVOTHYROXINE SOD 0.025 MG TAB PO SCH (06:00)
[2018-04-27 06:12] LABS: Magnesium 1.8 mg/dL (1.8-2.4); Phosphorus 1.3 mg/dL (2.5-4.9); Potassium 3.5 mmol/L (3.5-5.1)
--- NOTE | 2018-04-27 06:54 | EKG ---
Test Date: 2018-04-26 Test Time: 00:44:50 Release And Technical Records Clerk: MEASUREMENT RESULTS: Intervals: Rate: 49 WI: 220 QRSD: 94 QT: 466 QTc: 420 [place]: P: 55 WI: 220 QRS: 100 T: 126 INTERPRETIVE STATEMENTS: Sinus bradycardia with 1st degree AV block Low voltage QRS Possible Anterolateral infarct, age undetermined Abnormal ECG Compared to ECG 05/10/2003 21:37:00 First degree AV block now present Low QRS voltage now present Myocardial infarct finding now present Sinus rhythm no longer present T-wave abnormality no longer present Electronically Signed On 04-27-18 06:51:22 CDT by Rafa Partida
--- NOTE | 2018-04-27 07:39 | RAD REPORT ---
EXAM DESCRIPTION: RAD - Chest Single View - 04/27/2018 6:59 am CLINICAL HISTORY: Intubation, respiratory distress COMPARISON: April 26 imaging TECHNIQUE: AP portable chest image was obtained 0651 hours . FINDINGS: Large body habitus continues to limit the examination. Cardiomegaly and vascular engorgeme nt remain. Lung markings are prominent with no new or progressive lung parenchymal process suspected. Feeding tube, endotracheal tube and right central line unchanged. No pneumothorax or large pleural e ffusion. IMPRESSION: No new or progressive cardiopulmonary finding. Above detailed findings are stable from prior day study.
[2018-04-27] MEDS ORDERED: MAGNESIUM SULFATE 1 gm IVPB 1 GM/100 ML BAG IV ONE (08:00)
[2018-04-27] MEDS ORDERED: POTASSIUM PHOS IN 0.9 % NACL 15 MMOL/250 ML BAG IV ONE (08:00)
[2018-04-27] MEDS ORDERED: ACETAZOLAMIDE 500 MG IV IV ONE (08:20)
[2018-04-27] MEDS ORDERED: WATER FOR INJ,STERILE 10 ML IV ONE (08:20)
--- NOTE | 2018-04-27 08:22 | P.PN ---
Subjective Date of Service: 04/27/18 Chief Complaint: Respiratory failure Subjective: Improving (Patient is improving much more alert responsive cooperative) Review of Systems is unable to be obtained Physical Examination - Vital Signs Temperature: 97.3 F Blood Pressure: 172/102 Pulse: 60 Respirations: 18 Pulse Ox (%): 97 - Physical Exam General: Alert, Cooperative Respiratory: Clear to auscultation bilaterally Cardiovascular: No edema, Normal S1 S2 Assessment & Plan - Problems (Diagnosis) (1) Respiratory failure with hypoxia and hypercapnia Current Visit: Yes Status: Acute Plan: Patient is 58 years of age admitted with acute on chronic respiratory failure combination of obesity hyperventilation syndrome and severe hypothyroidism renal function is stable no evidence of sepsis plan to wean and extubate I have added some Diamox patient is only on 30% oxygen he will benefit from a patient sleeps at Qualifiers: Chronicity: acute on chronic Qualified Code(s): J96.21 - Acute and chronic respiratory failure with hypoxia; J96.22 - Acute and chronic respiratory failure with hypercapnia
[2018-04-27] MEDS: SODIUM CHLORIDE 0.9% 10ML INJ IV SCH (08:35)
[2018-04-27] MEDS: ENOXAPARIN 40 MG/0.4 ML SQ SCH (08:56)
[2018-04-27] MEDS: FAMOTIDINE 20 MG/2 ML VIAL IV SCH (08:56)
[2018-04-27] MEDS ORDERED: VANCOMYCIN 2 GM in NA CHLORIDE 0.9% 500 ML IV SCH (10:00)
--- NOTE | 2018-04-27 16:42 | PN ---
Date of Progress Note: 04/27/2018 Subjective: The patient is seen and examined. Chart reviewed and case discussed with RN. The patie nt still intubated, however, is awake and alert. Continuing weaning trials. Review of Systems: Limited due to patient's medical condition. Medications: List reviewed. Physical Examination: Vital Signs: Temperature 97.3, heart rate 60, blood pressure 172/102, respirations 18, O2 97% via ET tube. General: Awake, alert, some respiratory distress. Answers in yes or no. Follows commands. Morbidl y obese female. CV: S1, S2. No murmurs. Regular rate and rhythm. Peripheral pulses present. Respiratory: Diminished breath sounds bilaterally. Gastrointestinal: Abdomen is soft, nontender, nondistended. Positive bowel sounds. Extremities: No clubbing, cyanosis, edema. Neuro: Opens eyes spontaneously. Moves all 4 extremities. Follows commands. ET tube in place. Laboratory Data: Sodium 141, potassium 3.5, chloride 98, CO2 34, BUN 14, creatinine 1.4, glucose 101 , calcium 9.5, phosphorus 1.3, magnesium 1.8. WBC 6, H and H 14.2, 47.3, platelets 171. UA positive nitrite, loaded with bacteria. Urine culture 4+ gram negative rods. Blood culture growing gram pos itive cocci in clusters. Chest x-ray, personally reviewed, shows no new or progressive cardiopulmona ry findings. Assessment And Plan: A 58-year-old female with: 1.Acute respiratory failure with hypercapnia, on mechanical ventilation. Continue weaning trials. Dr. Hercules on board. 2.CO2 narcosis encephalopathy, improved significantly. 3.Morbid obesity, BMI 85. 4.Hypothyroidism, on levothyroxine. 5.Acute cystitis without hematuria. Previously with hematuria. Cultures growing gram-negative rods . Continue IV antibiotics. 6.Gram-positive bacteremia. 1/4 bottles may be contaminant. We will start empiric vancomycin and f ollow up with final cultures. Plan: Likely extubate today. Likely probable obstructive sleep apnea. SA/MODL Voice ID: [id number] Report ID: [id number]
[2018-04-27] MEDS: IPRATROPIUM BROM 0.5MG/2.5ML NEB PRN (19:49)
[2018-04-28] MEDS: ALBUTEROL 2.5 MG/3 ML NEB SOL NEB SCH ×3 (02:06→13:17)
[2018-04-28] MEDS: METHYLPREDNISOLONE 40 MG INJ IV SCH (02:18)
[2018-04-28 05:56] LABS: Albumin 3.1 g/dL (3.4-5.0); Bilirubin Total 0.5 mg/dL (0.2-1.0); Magnesium 2.3 mg/dL (1.8-2.4); Phosphorus 4.6 mg/dL (2.5-4.9); Potassium 3.6 mmol/L (3.5-5.1); Protein, Total 7.6 g/dL (6.4-8.2)
[2018-04-28 06:03] LABS: Absolute Lymphocytes (CBC) 0.2 K/uL (0.7-4.9); Absolute Monocytes 0.4 K/uL (0.1-1.3); Absolute Neutrophil 8.2 K/uL (1.8-8.0); Hematocrit 43.7 % (36.0-45.0); Lymphocytes % 1.8 % (15.3-44.8); MCH 29.1 pg (27.0-35.0); MCV 95.2 fL (80-100); Monocytes % 4.6 % (3.3-12.3); RBC Red Blood Cell Count 4.59 M/uL (3.86-4.86)
[2018-04-28] MEDS: CEFTRIAXONE/SWI 1gm 1 GM/10 ML SYR IV SCH (06:38)
[2018-04-28] MEDS: LEVOTHYROXINE SODIUM 100 MCG VIAL IV SCH (06:38)
[2018-04-28] MEDS ORDERED: POTASSIUM 25 MEQ EFFERV TAB PO ONE (08:00)
--- NOTE | 2018-04-28 08:28 | P.PN ---
Subjective Date of Service: 04/28/18 Chief Complaint: Respiratory failure Subjective: Improving (Patient is doing much better alert oriented responsive) Review of Systems Unremarkable Physical Examination - Vital Signs Temperature: 97.0 F Blood Pressure: 125/71 Pulse: 46 Respirations: 17 Pulse Ox (%): 98 - Physical Exam General: Alert, Oriented x3 Neck: Supple Respiratory: Clear to auscultation bilaterally, Diminished Assessment & Plan - Problems (Diagnosis) (1) Respiratory failure with hypoxia and hypercapnia Onset Date: 04/27/18 Current Visit: Yes Status: Acute Plan: Patient admitted with the presumed obesity hyperventilation syndrome has chronic hypercapnia severe hypothyroidism plan to transfer to the floor Dc antibiotics steroids change to p.o. Synthroid check room air arterial blood gases may benefit from a noninvasive ventilator or a BiPAP will need an outpatient sleep study patient is E. coli in the urine tar heat exchanger cleaner to p.o. levofloxacin transfer to the floor ambulate Qualifiers: Chronicity: acute on chronic Qualified Code(s): J96.21 - Acute and chronic respiratory failure with hypoxia; J96.22 - Acute and chronic respiratory failure with hypercapnia Plan to discharge in: 48 Hours
[2018-04-28] MEDS: ENOXAPARIN 40 MG/0.4 ML SQ SCH (08:41)
[2018-04-28] MEDS: LEVOTHYROXINE SOD 0.075 MG TAB PO SCH (08:41)
[2018-04-28] MEDS: SODIUM CHLORIDE 0.9% 10ML INJ IV SCH (08:47)
[2018-04-28] MEDS ORDERED: FAMOTIDINE 20 MG/2 ML VIAL IV SCH (09:00)
[2018-04-28 09:20] LABS: Anisocytosis 1+; Blood Morphology Comment NOTED (NOT SEEN); Platelet Estimate ADEQ; Platelets, Giant FEW; Urine White Blood Cell Casts OK
[2018-04-28 09:38] LABS: Arterial Blood Carboxyhemoglob 1.7 % (0-1.5); Blood Gas Oxyhemoglobin 76.7 % (94-97); Blood O2 Saturation 78.5 % (92-98.5)
[2018-04-28] MEDS: Meropenem 1,000 MG in NA CHLORIDE 0.9% 100 ML IV SCH ×2 (12:03→23:08)
[2018-04-28] MEDS ORDERED: ALBUTEROL 2.5 MG/3 ML NEB SOL NEB PRN (14:15)
--- NOTE | 2018-04-28 14:21 | P.PN ---
Subjective Date of Service: 04/28/18 Primary Care Provider: Dr. Phan Chief Complaint: Respiratory failure Subjective: Improving Physical Examination - Vital Signs Temperature: 97.0 F Blood Pressure: 153/90 Pulse: 53 Respirations: 23 Pulse Ox (%): 98 - Physical Exam General: Alert, In no apparent distress, Cooperative HEENT: Atraumatic Neck: Supple Respiratory: Clear to auscultation bilaterally, Normal air movement Cardiovascular: Normal pulses, Regular rate/rhythm Gastrointestinal: Normal bowel sounds, Soft and benign, Non-distended, No tenderness, No masses, No rebound, No guarding, Other (large pannus) Musculoskeletal: No tenderness, No warmth Integumentary: No erythema, No warmth, No cyanosis Neurological: Normal speech, Normal strength at 5/5 x4 extr, Normal tone, Normal affect - Studies Microbiology Data (last 24 hrs): 04/26/18 02:00 Catheterized Urine [place] Count - Final >100,000 CFU/ML. 04/26/18 02:00 Catheterized Urine - Final Escherichia Coli Medications List Reviewed: Yes Assessment & Plan Discharge Plan: Long-Term Physician Review Additional Text: Impression: Dyspnea secondary to acute on chronic respiratory failure likely hypoventilation obesity syndrome and severe obstructive sleep apnea with possible underlying COPD. UTI, urine culture positive for E coli-ESBL Morbid obesity GERD Elevated blood pressure, possible hypertension Plan: Patient will be transferred to telemetry. Will continue to wean off BiPAP at night. Patient may require CPAP at night. Will continue with COPD medication. Patient will be evaluated by physical therapy for possible skilled placement facility placement. Patient has positive UTI-E coli-ESBL. Patient will require a PICC line. Patient will need to continue with IV antibiotic therapy for 7 days. Patient currently on meropenem 1000 mg IV twice daily. Case discussed at length with patient and social media director. Will arrange for skilled placement. Will transfer patient to the floor. Will monitor blood pressure. May need to start medication for blood pressure if this remains elevated. Time Spent Managing Pts Care (In Minutes): 55
[2018-04-28] MEDS: PANTOPRAZOLE 40MG TABLET PO SCH (16:50)
[2018-04-28] MEDS: IPRATROPIUM BROM 0.5MG/2.5ML NEB PRN (19:53)
[2018-04-28] MEDS: ARFORMOTEROL TARTRATE 15 MCG/2 ML VIAL.NEB NEB SCH (19:53)
[2018-04-28] MEDS ORDERED: Meropenem 1000 MG/VIAL IV SCH (21:00)
[2018-04-28] MEDS: FENTANYL CITR 100 MCG/2 ML IV PRN (23:25)
[2018-04-29 05:06] LABS: Absolute Lymphocytes (CBC) 0.5 K/uL (0.7-4.9); Absolute Monocytes 0.6 K/uL (0.1-1.3); Absolute Neutrophil 6.1 K/uL (1.8-8.0); Basophils % 0.1 % (0-1.3); Eosinophils % 0.3 % (0-4.4); Hematocrit 42.1 % (36.0-45.0); Lymphocytes % 6.9 % (15.3-44.8); MCH 28.6 pg (27.0-35.0); MCV 94.6 fL (80-100); MPV 8.8 fL (7.6-11.3); Monocytes % 7.7 % (3.3-12.3); RBC Red Blood Cell Count 4.45 M/uL (3.86-4.86)
[2018-04-29 05:21] LABS: Magnesium 2.2 mg/dL (1.8-2.4); Potassium 3.4 mmol/L (3.5-5.1)
[2018-04-29] MEDS: PANTOPRAZOLE 40MG TABLET PO SCH ×2 (06:35→07:12)
[2018-04-29] MEDS: LEVOTHYROXINE SOD 0.075 MG TAB PO SCH (06:35)
--- NOTE | 2018-04-29 06:57 | RAD REPORT ---
EXAM DESCRIPTION: RAD - Chest Single View - 04/28/2018 10:27 pm CLINICAL HISTORY: PICC line placement A preliminary report was provided at the time of the study and reviewed prior to final report. COMPARISON: April 27 FINDINGS: Portable chest was obtained following placement of an upper extremity PICC line. The right PICC line tip is poorly visualized due to motion and large body habitus. Tip is near the SVC atrial junction and may extend into the atrium. The right-side PICC line could be withdrawn 2-3 cm without risk of loss of SVC purchase. Left upper extremity PICC line is in place with the tip in the proximal SVC.
--- NOTE | 2018-04-29 06:58 | RAD REPORT ---
EXAM DESCRIPTION: RAD - Chest Single View - 04/29/2018 1:12 am CLINICAL HISTORY: PICC line placement COMPARISON: April 28 FINDINGS: Portable chest was obtained following placement or repositioning of an upper extremity PIC C line. The right PICC line tip is in the SVC atrial junction. Left PICC line tip is in the proximal SVC.
[2018-04-29] MEDS ORDERED: TRAMADOL HCL 50 MG TAB PO PRN (07:03)
[2018-04-29] MEDS: HYDROCODONE/APAP 7.5/325 MG TAB PO PRN ×2 (07:19→16:20)
[2018-04-29] MEDS ORDERED: POTASSIUM CL SA 10 MEQ TAB PO ONE (08:00)
[2018-04-29] MEDS: ARFORMOTEROL TARTRATE 15 MCG/2 ML VIAL.NEB NEB SCH ×2 (08:10→19:45)
[2018-04-29] MEDS: Meropenem 1,000 MG in NA CHLORIDE 0.9% 100 ML IV SCH ×2 (09:00→21:19)
[2018-04-29] MEDS: SODIUM CHLORIDE 0.9% 10ML INJ IV SCH (09:00)
[2018-04-29] MEDS: ENOXAPARIN 40 MG/0.4 ML SQ SCH (09:00)
--- NOTE | 2018-04-29 12:58 | P.PN ---
Subjective Date of Service: 04/29/18 Primary Care Provider: Dr. Phan Chief Complaint: Respiratory failure Subjective: Improving Physical Examination - Vital Signs Temperature: 97.1 F Blood Pressure: 142/96 Pulse: 63 Respirations: 20 Pulse Ox (%): 95 - Physical Exam General: Alert, In no apparent distress, Oriented x3, Cooperative HEENT: Atraumatic Neck: Supple Respiratory: Clear to auscultation bilaterally, Normal air movement Cardiovascular: Normal pulses, Regular rate/rhythm Gastrointestinal: Normal bowel sounds, Soft and benign, Non-distended, No masses , No rebound, No guarding Musculoskeletal: No erythema, No tenderness, No warmth Integumentary: No tenderness/swelling, No erythema, No warmth, No cyanosis Neurological: Normal speech, Normal strength at 5/5 x4 extr, Normal tone, Normal affect - Studies Microbiology Data (last 24 hrs): 04/26/18 02:00 Catheterized Urine [place] Count - Final >100,000 CFU/ML. 04/26/18 02:00 Catheterized Urine - Final Escherichia Coli Medications List Reviewed: Yes Assessment & Plan Discharge Plan: Other (SNF) Plan to discharge in: 24 Hours Physician Review Additional Text: Impression: Dyspnea secondary to acute on chronic respiratory failure likely hypoventilation obesity syndrome and severe obstructive sleep apnea with possible underlying COPD. UTI, urine culture positive for E coli-ESBL Morbid obesity GERD Elevated blood pressure, possible hypertension Plan: Dyspnea secondary to acute on chronic respiratory failure likely hypoventilation obesity syndrome and severe obstructive sleep apnea with possible underlying COPD: Will continue with oxygen and try to wean off. Will continue with BIPAP as well as needed. Will have PT assess for SNF. Patient has decided on SNF. Will continue with COPD medication. PT to assess for SNF. Patient will need outpatient evaluation for CPAP. UTI, urine culture positive for E coli-ESBL: Will continue with Merrem 1 gm IV BID. She will need 7 days of treatment. This will be continued at SNF. Arrangements are being made. Morbid obesity: Will continue to address lifestyle modifications. GERD: Continue with PPI. Elevated blood pressure, possible hypertension: Will continue to monitor. May need medication if this increases. Hypothyroidism: Will continue with medication. Lab recheck in one month to further adjust. Acute renal insufficiency likely from UTI: Improved. Will monitor. Encourage oral intake. Hypokalemia: Will continue to monitor and replace. Time Spent Managing Pts Care (In Minutes): 55
[2018-04-29] MEDS: IPRATROPIUM BROM 0.5MG/2.5ML NEB PRN (19:45)
[2018-04-30] MEDS: LEVOTHYROXINE SOD 0.075 MG TAB PO SCH (05:48)
[2018-04-30 05:51] LABS: Magnesium 2.3 mg/dL (1.8-2.4); Potassium 3.6 mmol/L (3.5-5.1)
[2018-04-30 05:56] LABS: Absolute Lymphocytes (CBC) 0.7 K/uL (0.7-4.9); Absolute Monocytes 0.5 K/uL (0.1-1.3); Absolute Neutrophil 3.9 K/uL (1.8-8.0); Basophils % 0.5 % (0-1.3); Eosinophils % 2.2 % (0-4.4); Hematocrit 41.1 % (36.0-45.0); Lymphocytes % 13.9 % (15.3-44.8); MCV 93.9 fL (80-100); MPV 8.8 fL (7.6-11.3); Monocytes % 8.6 % (3.3-12.3); RBC Red Blood Cell Count 4.38 M/uL (3.86-4.86)
[2018-04-30] MEDS: IPRATROPIUM BROM 0.5MG/2.5ML NEB PRN (07:22)
[2018-04-30] MEDS: ARFORMOTEROL TARTRATE 15 MCG/2 ML VIAL.NEB NEB SCH (07:22)
[2018-04-30] MEDS ORDERED: LEVOTHYROXINE SOD 0.075 MG TAB SCH (08:44)
--- NOTE | 2018-04-30 08:47 | P.PN ---
Subjective Date of Service: 04/30/18 Primary Care Provider: Dr. Phan Chief Complaint: Respiratory failure Subjective: Improving (Patient is doing much better alert oriented responsive no new complaint) Review of Systems Unremarkable Physical Examination - Vital Signs Temperature: 98.1 F Blood Pressure: 144/87 Pulse: 71 Respirations: 20 Pulse Ox (%): 90 - Physical Exam General: Alert, Oriented x3, Cooperative Respiratory: Clear to auscultation bilaterally - Studies Medications List Reviewed: Yes Assessment & Plan - Problems (Diagnosis) (1) Respiratory failure with hypoxia and hypercapnia Onset Date: 04/27/18 Current Visit: Yes Status: Acute Plan: Patient is 58 years of age admitted with respiratory failure hypoventilation I suspect from severe hypothyroidism I have increased the Synthroid to 100 mcg daily he does not have EES BAL change to p.o. levofloxacin Dc bronchodilators patient will need an outpatient sleep study check room air pulse ox at [facility] Qualifiers: Chronicity: acute on chronic Qualified Code(s): J96.21 - Acute and chronic respiratory failure with hypoxia; J96.22 - Acute and chronic respiratory failure with hypercapnia Physician Review Additional Text: Impression: Dyspnea secondary to acute on chronic respiratory failure likely hypoventilation obesity syndrome and severe obstructive sleep apnea with possible underlying COPD. UTI, urine culture positive for E coli-ESBL Morbid obesity GERD Elevated blood pressure, possible hypertension Plan: Dyspnea secondary to acute on chronic respiratory failure likely hypoventilation obesity syndrome and severe obstructive sleep apnea with possible underlying COPD: Will continue with oxygen and try to wean off. Will continue with BIPAP as well as needed. Will have PT assess for SNF. Patient has decided on SNF. Will continue with COPD medication. PT to assess for SNF. Patient will need outpatient evaluation for CPAP. UTI, urine culture positive for E coli-ESBL: Will continue with Merrem 1 gm IV BID. She will need 7 days of treatment. This will be continued at SNF. Arrangements are being made. Morbid obesity: Will continue to address lifestyle modifications. GERD: Continue with PPI. Elevated blood pressure, possible hypertension: Will continue to monitor. May need medication if this increases. Hypothyroidism: Will continue with medication. Lab recheck in one month to further adjust. Acute renal insufficiency likely from UTI: Improved. Will monitor. Encourage oral intake. Hypokalemia: Will continue to monitor and replace.
[2018-04-30] MEDS ORDERED: POTASSIUM 25 MEQ EFFERV TAB PO ONE (09:00)
[2018-04-30] MEDS: SODIUM CHLORIDE 0.9% 10ML INJ IV SCH (09:00)
[2018-04-30] MEDS ORDERED: levoFLOXacin 500 MG TAB PO SCH (09:00)
[2018-04-30] MEDS: Meropenem 1,000 MG in NA CHLORIDE 0.9% 100 ML IV SCH ×2 (10:28→16:14)
[2018-04-30] MEDS: ENOXAPARIN 40 MG/0.4 ML SQ SCH (10:29)
[2018-04-30] MEDS: PANTOPRAZOLE 40MG TABLET PO SCH (10:29)
[2018-04-30] MEDS: HYDROCODONE/APAP 7.5/325 MG TAB PO PRN ×2 (10:31→18:29)
[2018-04-30] MEDS: acetaZOLAMIDE 250 MG TAB PO SCH (10:32)
--- NOTE | 2018-04-30 11:46 | P.PN ---
Subjective Date of Service: 04/30/18 Primary Care Provider: Dr. Phan Chief Complaint: Respiratory failure Subjective: Improving Physical Examination - Vital Signs Temperature: 98.1 F Blood Pressure: 144/87 Pulse: 71 Respirations: 20 Pulse Ox (%): 90 - Physical Exam General: Alert, In no apparent distress, Oriented x3, Cooperative HEENT: Atraumatic Neck: Supple Respiratory: Clear to auscultation bilaterally, Normal air movement Cardiovascular: Normal pulses, Regular rate/rhythm Gastrointestinal: Normal bowel sounds, Soft and benign, Non-distended, No tenderness, No masses, No rebound, No guarding Musculoskeletal: No erythema, No tenderness, No warmth Integumentary: No tenderness/swelling, No erythema, No warmth, No cyanosis Neurological: Normal speech, Normal strength at 5/5 x4 extr, Normal tone, Normal affect - Studies Medications List Reviewed: Yes Assessment & Plan Discharge Plan: Other (Skilled placement facility) Plan to discharge in: 24 Hours Physician Review Additional Text: Impression: Dyspnea secondary to acute on chronic respiratory failure likely hypoventilation obesity syndrome and severe obstructive sleep apnea with possible underlying COPD. UTI, urine culture positive for E coli-ESBL Hypothyroidism Hypokalemia Morbid obesity GERD Elevated blood pressure, possible hypertension Acute renal insufficiency likely from UTI Plan: Dyspnea secondary to acute on chronic respiratory failure likely hypoventilation obesity syndrome and severe obstructive sleep apnea with possible underlying COPD: Will continue to wean off oxygen. Case discussed with pulmonology. Patient will need to be assessed as an outpatient for sleep apnea. Patient currently working with physical therapy. Awaiting skilled placement referral. UTI, urine culture positive for E coli-ESBL: Patient with PICC line in place. Will continue with meropenem 1 g IV 3 times a day. Patient will need a total of 7 days. This can be continued at skilled placement facility. This was discussed with pulmonary. Hypothyroidism: Pulmonology increase Synthroid to 100 mcg daily. Recommendation to recheck lab in 1 month to further adjust. Morbid obesity: Will continue to address lifestyle modifications. Patient will likely need bariatric surgery evaluation as an outpatient GERD: Continue with PPI. Elevated blood pressure, possible hypertension: Will continue to monitor. May need medication if this increases or remains elevated. Acute renal insufficiency likely from UTI: Improved. Will monitor. Encourage oral intake. Hypokalemia: Will continue to monitor and replace. Time Spent Managing Pts Care (In Minutes): 55
[2018-04-30] MEDS ORDERED: Meropenem 1000 MG/VIAL IV SCH (17:00)
[2018-05-01] MEDS: Meropenem 1,000 MG in NA CHLORIDE 0.9% 100 ML IV SCH ×3 (00:38→17:00)
[2018-05-01 05:22] LABS: Absolute Lymphocytes (CBC) 0.8 K/uL (0.7-4.9); Absolute Monocytes 0.5 K/uL (0.1-1.3); Absolute Neutrophil 4.3 K/uL (1.8-8.0); Basophils % 0.8 % (0-1.3); Eosinophils % 3.5 % (0-4.4); Lymphocytes % 13.9 % (15.3-44.8); MCH 29.1 pg (27.0-35.0); MPV 9.2 fL (7.6-11.3); Monocytes % 8.2 % (3.3-12.3); RBC Red Blood Cell Count 4.47 M/uL (3.86-4.86)
[2018-05-01 05:33] LABS: Magnesium 2.2 mg/dL (1.8-2.4)
[2018-05-01] MEDS ORDERED: LEVOTHYROXINE SOD 0.1 MG TAB PO SCH (06:00)
[2018-05-01] MEDS: PANTOPRAZOLE 40MG TABLET PO SCH (08:57)
[2018-05-01] MEDS: acetaZOLAMIDE 250 MG TAB PO SCH (08:57)
[2018-05-01] MEDS: ENOXAPARIN 40 MG/0.4 ML SQ SCH (08:57)
[2018-05-01] MEDS: SODIUM CHLORIDE 0.9% 10ML INJ IV SCH (09:00)
[2018-05-01] MEDS: HYDROCODONE/APAP 7.5/325 MG TAB PO PRN (09:03)
--- NOTE | 2018-05-01 10:43 | P.PN ---
Subjective Date of Service: 05/01/18 Primary Care Provider: Dr. Phan Chief Complaint: Respiratory failure Subjective: Improving (Some cough and congestion noted.) Physical Examination - Vital Signs Temperature: 97.4 F Blood Pressure: 137/75 Pulse: 59 Respirations: 20 Pulse Ox (%): 96 - Physical Exam General: Alert, In no apparent distress, Oriented x3, Cooperative HEENT: Atraumatic Neck: Supple Respiratory: Clear to auscultation bilaterally, Normal air movement Cardiovascular: Normal pulses, Regular rate/rhythm Gastrointestinal: Normal bowel sounds, Soft and benign, Non-distended, No tenderness, No masses, No rebound, No guarding Musculoskeletal: No erythema, No tenderness, No warmth Integumentary: No tenderness/swelling, No erythema, No warmth, No cyanosis Neurological: Normal speech, Normal strength at 5/5 x4 extr, Normal tone, Normal affect - Studies Medications List Reviewed: Yes Assessment & Plan Discharge Plan: Other (Skilled placement facility) Plan to discharge in: 24 Hours Physician Review Additional Text: Impression: Dyspnea secondary to acute on chronic respiratory failure likely hypoventilation obesity syndrome and severe obstructive sleep apnea with possible underlying COPD. UTI, urine culture positive for E coli-ESBL Hypothyroidism Hypokalemia Morbid obesity GERD Elevated blood pressure, possible hypertension Acute renal insufficiency likely from UTI Plan: Dyspnea secondary to acute on chronic respiratory failure with noted hypercapnia likely hypoventilation obesity syndrome and severe obstructive sleep apnea with possible underlying COPD: Will continue to wean off oxygen. Case discussed with pulmonology. Patient currently on Diamox due to hypercapnia. Will encourage incentive spirometer and physical therapy. Will check chest x-ray. Continue to wait approval for skilled placement. Social work looking to at another facility for placement. UTI, urine culture positive for E coli-ESBL: Patient with PICC line in place. Will continue with meropenem 1 g IV 3 times a day. Patient will need a total of 7 days. This can be continued at skilled placement facility. This was discussed with pulmonary. Hypothyroidism: Pulmonology increased Synthroid to 100 mcg daily. Recommendation to recheck lab in 1 month to further adjust. Morbid obesity: Will continue to address lifestyle modifications. Patient will likely need bariatric surgery evaluation as an outpatient GERD: Continue with PPI. Elevated blood pressure, possible hypertension: Will continue to monitor. May need medication if this increases or remains elevated. Acute renal insufficiency likely from UTI: Improved. Will monitor. Encourage oral intake. Hypokalemia: Will continue to monitor and replace. Time Spent Managing Pts Care (In Minutes): 55
--- NOTE | 2018-05-01 12:36 | P.DS ---
Admission Date: 04/26/18 Discharge Date: 05/01/18 Primary Care Provider: Dr. Phan Disposition: TRANSFER TO SNF - MEDICAL Discharge Condition: GOOD Reason for Admission: Respiratory failure Consultations: Surgery-Dr. Alarcon Pulmonary-Dr. Hercules Procedures: Central Line Placement Medical Problem List: Dyspnea secondary to acute on chronic respiratory failure likely hypoventilation obesity syndrome and severe obstructive sleep apnea with possible underlying COPD. UTI, urine culture positive for E coli-ESBL Hypothyroidism Hypokalemia Morbid obesity GERD Elevated blood pressure, possible hypertension Acute renal insufficiency likely from UTI Brief History of Present Illness: 58-year-old female with morbid obesity came to the ER with increasing fatigue. She apparently left [facility] emergency room at midnight after being treated for UTI. Patient was difficult to arouse when she got home. The patient was brought in by family. Patient was evaluated in the emergency room. Patient was started on BiPAP due to acute on chronic respiratory failure with severe hypercapnia likely secondary to obesity hypoventilation syndrome. The patient had to be intubated due to her respiratory status. Patient was admitted for further treatment. Hospital Course: Patient admitted for dyspnea, fatigue secondary to acute on chronic respiratory failure with noted hypercapnia likely related to hypoventilation obesity syndrome and severe obstructive sleep apnea. Patient was initially evaluated in the emergency room. She was placed on BiPAP but ultimately required intubation. Patient was seen and evaluated by pulmonology. Patient was eventually extubated and weaned off BiPAP. Patient responded to therapy well. At discharge patient requires 2 L per nasal cannula oxygen. Patient will continue with Diamox 125 mg daily. Recommendation to recheck lab-BMP in 1 week to monitor her progress. Medication may need to be adjusted in the near future. This can be done by pulmonology. Patient to continue with a 1500 cc per day fluid restriction. Patient will need a follow up with pulmonology as an outpatient for sleep study evaluation for CPAP. Prior to discharge patient was evaluated for skilled placement to continue rehabilitation. Patient was ultimately accepted to a skilled facility. Patient will continue with her care there. Patient will continue with albuterol 1 unit dose 3 times a day as needed for shortness of breath. Oxygen will be weaned off to maintain sats above 90%. Prior to discharge echocardiogram will be done to evaluate for diastolic CHF and/or pulmonary hypertension. During the course of her stay. Patient was found to have a UTI. Urine culture positive for E coli-ESBL. PICC line was placed. Patient started on meropenem 1 g IV 3 times a day. Patient is to continue with IV antibiotic therapy for another 5 days. Recommendation to recheck urine culture to monitor resolution. UTI prevention will need to be enforced. Patient was found to have hypothyroidism. This is a new diagnosis. Patient was started on medication. At discharge she will continue with Synthroid 100 mcg daily. Recommendation to recheck lab in 1 month to further adjust. Patient with morbid obesity. Patient will need a follow up with bariatric surgery as an outpatient. Patient likely requires surgical intervention in the future to help with her weight loss. Lifestyle modification education will be continued. Patient has GERD. Patient will continue with Protonix 40 mg 1 pill once daily. Patient has mild elevation in her blood pressure. No need for medication at this time. Recommendation is to monitor blood pressures daily. If blood pressures remain above 150/90 patient may require medication. This can be started if needed at the skilled facility. Patient had acute renal insufficiency along with electrolyte abnormalities likely related to UTI. Electrolytes now within normal range. Recheck lab-BMP in 1 week to monitor progress. Vital Signs/Physical Exam: Temp Pulse Resp BP Pulse Ox 97.4 F 59 20 137/75 96 05/01/18 10:43 05/01/18 10:43 05/01/18 10:43 05/01/18 10:43 05/01/18 10:43 General: Alert, In no apparent distress, Oriented x3, Cooperative HEENT: Atraumatic Neck: Supple Respiratory: Clear to auscultation bilaterally, Normal air movement Cardiovascular: Normal pulses, Regular rate/rhythm Gastrointestinal: Normal bowel sounds, Soft and benign, Non-distended, No tenderness, No masses, No rebound, No guarding, Other (Morbid obesity) Musculoskeletal: No erythema, No tenderness, No warmth Integumentary: No tenderness/swelling, No erythema, No warmth, No cyanosis Neurological: Normal speech, Normal strength at 5/5 x4 extr, Normal tone, Normal affect Laboratory Data at Discharge: WBC 5.9 K/uL (4.3-10.9) 05/01/18 05:05 Hgb 13.0 g/dL (12.0-15.0) 05/01/18 05:05 Hct 42.0 % (36.0-45.0) 05/01/18 05:05 Plt Count 163 K/uL (152-406) 05/01/18 05:05 PT 13.7 SECONDS (9.5-12.5) H 04/26/18 01:25 INR 1.16 04/26/18 01:25 Sodium 145 mmol/L (136-145) 05/01/18 05:05 Potassium 4.0 mmol/L (3.5-5.1) 05/01/18 05:05 BUN 20 mg/dL (7-18) H 05/01/18 05:05 Creatinine 1.20 mg/dL (0.55-1.3) 05/01/18 05:05 Glucose 102 mg/dL (74-106) 05/01/18 05:05 Phosphorus 4.6 mg/dL (2.5-4.9) D 04/28/18 05:00 Magnesium 2.2 mg/dL (1.8-2.4) 05/01/18 05:05 Total Bilirubin 0.5 mg/dL (0.2-1.0) 04/28/18 05:00 AST 14 U/L (15-37) L 04/28/18 05:00 ALT 11 U/L (12-78) L 04/28/18 05:00 Alkaline Phosphatase 55 U/L (45-117) 04/28/18 05:00 Troponin I < 0.02 ng/mL (0.0-0.045) 04/26/18 14:20 Home Medications: Albuterol Neb [Proventil 0.083% Neb Soln] 2.5 mg NEB TID PRN #90 amp 05/01/18 Aspirin [Aspirin EC 81 MG] 81 mg PO DAILY #30 tablet. 05/01/18 Levothyroxine [Synthroid*] 0.1 mg PO [id number] #30 tab 05/01/18 Pantoprazole [Protonix Tab*] 40 mg PO ACB #30 tab 05/01/18 acetaZOLAMIDE [Diamox*] 125 mg PO DAILY #30 tab 05/01/18 New Medications: acetaZOLAMIDE [Diamox*] 125 mg PO DAILY #30 tab Albuterol Neb [Proventil 0.083% Neb Soln] 2.5 mg NEB TID PRN #90 amp PRN Reason: Shortness Of Breath Aspirin [Aspirin EC 81 MG] 81 mg PO DAILY #30 tablet. Levothyroxine [Synthroid*] 0.1 mg PO [id number] #30 tab Pantoprazole [Protonix Tab*] 40 mg PO ACB #30 tab Patient Discharge Instructions: 1. [facility]. 2. Patient admitted for dyspnea, fatigue secondary to acute on chronic respiratory failure with noted hypercapnia likely related to hypoventilation obesity syndrome and severe obstructive sleep apnea. Patient was seen and evaluated by pulmonology. Patient required intubation during her stay. Patient was ultimately extubated and weaned off to oxygen per nasal cannula. Patient responded to therapy well. At discharge patient requires 2 L per nasal cannula oxygen. Patient will continue with Diamox 125 mg daily. Recommendation to recheck lab BMP in 1 week to monitor progress. Medication may need to be adjusted in the near future. This can be further addressed by pulmonology. Patient to continue with a 1500 cc per day fluid restriction. Patient will need a follow up with pulmonology as an outpatient for sleep study evaluation for CPAP. Prior to discharge patient was evaluated for skilled placement to continue rehabilitation. Patient was ultimately accepted to a skilled facility. Patient will continue with her care there. Patient will continue with albuterol 1 unit dose 3 times a day as needed for shortness of breath. Oxygen will be weaned off to maintain sats above 90%. Echocardiogram will be done prior to discharge to evaluate for diastolic CHF and/or pulmonary hypertension. 3. During the course of her stay. Patient was found to have a UTI. Urine culture positive for E coli- ESBL. PICC line was placed. Patient started on meropenem 1 g IV 3 times a day. Patient is to continue with IV antibiotic therapy for another 5 days. Recommendation to recheck urine culture to monitor resolution. UTI prevention will need to be enforced. 4. Patient was found to have hypothyroidism. This is a new diagnosis. Patient was started on medication. At discharge she will continue with Synthroid 100 mcg daily. Recommendation to recheck lab in 1 month to further adjust. 5. Patient with morbid obesity. BMI 82. Patient will need a follow up with bariatric surgery as an outpatient. Patient likely requires surgical intervention in the future to help with her weight loss. Lifestyle modification education will be continued. 6. Patient has GERD. Patient will continue with Protonix 40 mg 1 pill once daily. 7. Patient has mild elevation in her blood pressure. No need for medication at this time. Recommendation is to monitor blood pressures daily. If blood pressures remain above 150/90 patient may require medication. This can be started if needed at the skilled facility. 8. Patient had acute renal insufficiency along with electrolyte abnormalities likely related to UTI. Electrolytes now within normal range. Recheck lab-BMP in 1 week to monitor progress. Diet: AHA Activity: Fall precautions Time spent managing pt's care (in minutes): 55
--- NOTE | 2018-05-01 15:34 | RAD REPORT ---
EXAM DESCRIPTION: RAD - Chest Single View - 05/01/2018 3:22 pm CLINICAL HISTORY: follow up SOB Chest pain. COMPARISON: Chest Single View dated 04/29/2018; Chest Single View dated 04/28/2018; Chest Single View dated 04/27/2018; Chest Single View dated 04/26/2018 FINDINGS: Portable technique limits examination quality. Mild interstitial pulmonary edema is noted. Prominent cardiomegaly is present. No displaced fractures .Left-sided PICC line has tip in the SVC. IMPRESSION: Prominent cardiomegaly.
--- NOTE | 2018-05-04 08:07 | ECHO ---
HEIGHT: 5 ft 4 in WEIGHT: 482 lb 4.8 oz DATE OF STUDY: 05/01/[address]: Noam Pruett DO 2-DIMENSIONAL: YES M.MODE: YES DOPPLER: YES COLOR FLOW: YES TDS: YES PORTABLE: NO DEFINITY: NO BUBBLE STUDY: NO DIAGNOSIS: EVALUATE FOR CONGESTIVE HEART FAILURE CARDIAC HISTORY: CATHERIZATION: NO SURGERY: NO PROSTHETIC VALVE: NO PACEMAKER: NO MEASUREMENTS (cm) DIASTOLIC (NORMALS) SYSTOLIC (NORMALS) IVSd 1.5 (0.6-1.2) LA Diam 4.5 (1.9-4.0) LVEF 69% LVIDd 3.5 (3.5-5.7) LVIDs 2.2 (2.0-3.5) %FS 38% LVPWd 1.8 (0.6-1.2) Ao Diam 2.9 (2.0-3.7) 2 DIMENSIONAL ASSESSMENT: RIGHT ATRIUM: NORMAL LEFT ATRIUM: DILATED RIGHT VENTRICLE: NORMAL LEFT VENTRICLE: NORMAL TRICUSPID VALVE: NORMAL MITRAL VALVE: NORMAL PULMONIC VALVE: NORMAL AORTIC VALVE: NORMAL PERICARDIAL EFFUSION: NONE AORTIC ROOT: NORMAL LEFT VENTRICULAR WALL MOTION: NORMAL DOPPLER/COLOR FLOW: NORMAL COMMENTS: TECHNICALLY DIFFICULT STUDY. NO EVIDENCE OF CONGESATIVE HEART FAILURE. NORMAL LEFT VENTRICULAR SIZE AND FUNCTION. NO EFFUSION. LEFT ATRIAL ENLARGEMENT. TECHNOLOGIST: Veto PEREZ
== END 2018-05-01 17:48 | DRG 208 ==
LOC: ER 23:08 → ERHOLD 04-26 02:55 → 3RD-ICU 04-26 07:45 → 4TH 04-29 13:58
PROVIDERS: ADMIT Hospitalist; ATTEND Family Medicine
PROC: 5A1935Z Respiratory Ventilation, Less than 24 Consecutive Hours (ICD-10-PCS; principal; 2018-04-26)
PROC: 05H533Z Insertion of Infusion Device into Right Subclavian Vein, Percutaneous Approach (ICD-10-PCS; 2018-04-26)
PROC: 0BH17EZ Insertion of Endotracheal Airway into Trachea, Via Natural or Artificial Opening (ICD-10-PCS; 2018-04-26)
PROC: 5A09357 Assistance with Respiratory Ventilation, Less than 24 Consecutive Hours, Continuous Positive Airway Pressure (ICD-10-PCS; 2018-04-26)
PROC: 02HV33Z Insertion of Infusion Device into Superior Vena Cava, Percutaneous Approach (ICD-10-PCS; 2018-04-28)
DX: J96.22 Acute and chronic respiratory failure with hypercapnia (principal); E66.2 Morbid (severe) obesity with alveolar hypoventilation; Z68.45 Body mass index [BMI] 70 or greater, adult; N39.0 Urinary tract infection, site not specified; N30.00 Acute cystitis without hematuria; J96.21 Acute and chronic respiratory failure with hypoxia; E87.6 Hypokalemia; B96.20 Unspecified Escherichia coli [E. coli] as the cause of diseases classified elsewhere; E03.9 Hypothyroidism, unspecified; G47.33 Obstructive sleep apnea (adult) (pediatric)
CPT/HCPCS: 36415; 51702; 71045; 74018; 80048; 80053; 80076; 81003; 81015; 82805; 82962; 83735; 83880; 84100; 84132; 84439; 84443; 84484; 85025; 85610; 87040; 87077; 87086; 87088; 87186; 87205; 93005; 93306; 94002; 94660; 96365; 96375; 97163; 99291; 99292; J0360; J0696; J1120; J1650; J1940; J2310; J2920; J3010; J3475; J7030; J7605

== ENCOUNTER 2018-05-28 13:56 | Emergency (ER) | payer OTHER ==
[2018-05-28] MEDS ORDERED: levoFLOXacin 750 MG TAB ONE (14:53)
--- NOTE | 2018-05-28 14:53 | ER ---
Nurse's Notes [facility] Name: Navarro Baker Age: 58 yrs Sex: Female : 1960 Arrival Date: 05/28/2018 Time: 13:59 Bed 14 Private MD: Leonid Phan Diagnosis: Urinary tract infection, site not specified Presentation: 05/28 14:06 Presenting complaint: Patient states: Low back pain and dark colored urine for 9 days. aj Denies burning with urination. Transition of care: patient was not received from another setting of care. Onset of symptoms was May 28, 2018. Risk Assessment: Do you want to hurt yourself or someone else? Patient reports no desire to harm self or others. Initial Sepsis Screen: Does the patient meet any 2 criteria? No. Patient's initial sepsis screen is negative. Does the patient have a suspected source of infection? No. Patient's initial sepsis screen is negative. Care prior to arrival: None. 14:06 Method Of Arrival: Wheelchair aj 14:06 Acuity: ALEJANDRINA 4 aj Triage Assessment: 14:08 General: Appears in no apparent distress. comfortable, obese, Behavior is calm, aj cooperative, appropriate for age. Pain: Complains of pain in low back area. Neuro: Level of Consciousness is awake, alert, obeys commands, Oriented to person, place, time, situation, Appropriate for age. Respiratory: Airway is patent Respiratory effort is even, unlabored, Respiratory pattern is regular, symmetrical. : Reports dark colored urine. Derm: Skin is intact, is healthy with good turgor, Skin is pink, warm \T\ dry. normal. Musculoskeletal: Reports pain in low back area. Historical: - Allergies: 14:08 No Known Allergies; aj - Home Meds: 14:08 hydrocodone-acetaminophen 5-500 mg Oral tab [Active]; levothyroxine oral for aj Hypothyroidism [Active]; - PMHx: 14:08 Hypothyroidism; morbid obesity; aj - PSHx: 14:08 multiple plates on hip and legs; aj - Immunization history:: Adult Immunizations up to date. - Social history:: Smoking status: Patient/guardian denies using tobacco. - Ebola Screening: : Patient negative for fever greater than or equal to 101.5 degrees Fahrenheit, and additional compatible Ebola Virus Disease symptoms Patient denies exposure to infectious person Patient denies travel to an Ebola-affected area in the 21 days before illness onset No symptoms or risks identified at this time. Screenin:15 Abuse screen: Denies threats or abuse. Denies injuries from another. Nutritional jl7 screening: No deficits noted. Tuberculosis screening: No symptoms or risk factors identified. Fall Risk No fall in past 12 months (0 pts). Secondary diagnosis (15 points) impaired mobility, No IV (0 pts). Ambulatory Aid- Crutches/Cane/Walker (15 pts). Gait- Impaired (20 pts.). Mental Status- Oriented to own ability (0 pts). Total [place] Fall Scale indicates High Risk Score (45 or more points). Fall prevention measures have been instituted. Side Rails Up X 2 Placed Close to Nursing Station Frequent Obs/Assessments Occuring Family Present and informed to notify staff if the need to leave the bedside As available patient and family educated on Fall Prevention Program and Strategies. Assessment: 14:15 General: Appears in no apparent distress. uncomfortable, Behavior is calm, cooperative, jl7 appropriate for age. Pain: Complains of pain in low back area Pain currently is 0 out of 10 on a pain scale. at worst was 4 out of 10 on a pain scale. Is intermittent. Neuro: Level of Consciousness is awake, alert, obeys commands, Oriented to person, place, time, situation. Cardiovascular: Patient's skin is warm and dry. Respiratory: Airway is patent Respiratory effort is even, unlabored, Respiratory pattern is regular, symmetrical. : Reports burning with urination, pain. Derm: Skin is dry, Skin is normal, Skin temperature is warm. Vital Signs: 14:08 BP 150 / 78; Pulse 73; Resp 20; Temp 97.9; Pulse Ox 98% on R/A; Weight 199.58 kg; aj Height 5 ft. 4 in. (162.56 cm); 14:08 Body Mass Index 75.53 (199.58 kg, 162.56 cm) aj ED Course: 13:59 Patient arrived in ED. mr 13:59 Leonid Phan is Private Physician. mr 14:00 [facility]C [facility]. kb 14:00 Vamsi Heart MD is Attending Physician. kb 14:07 Triage completed. aj 14:08 Arm band placed on left wrist. Patient placed in an exam room. aj 14:15 Abraham Quintanilla, RN is Primary Nurse. jl7 14:15 Patient has correct armband on for positive identification. Bed in low position. Call jl7 light in reach. Side rails up X 1. Pulse ox on. NIBP on. 15:01 No provider procedures requiring assistance completed. Patient did not have IV access jl7 during this emergency room visit. Administered Medications: 14:52 Drug: LevaQUIN 750 mg Route: PO; jl7 Outcome: 14:53 Discharge ordered by . hasmukh 15:01 Discharged to home via wheelchair. jl7 15:01 Condition: stable 15:01 Discharge instructions given to patient, family, Instructed on discharge instructions, follow up and referral plans. medication usage, Demonstrated understanding of instructions, follow-up care, medications, Prescriptions given X 1. 15:01 Patient left the ED. jl7 Addendum: 05/31/2018 07:25 Addendum: Culture Results: Positive urine culture. No further action required. Bacteria s s sensitive to prescribed antibiotic. Signatures: Ginger Reyes, WATCH CRYSTAL CUTTER-C WATCH CRYSTAL CUTTER-Ckb Letitia Villeda, RN RN Angelica Lindsay Shelby, RN Abraham Hogan, RN RN jl7
--- NOTE | 2018-05-28 14:53 | EDPHYS ---
Physician Documentation [facility] Name: Navarro Baker Age: 58 yrs Sex: Female : 1960 Arrival Date: 05/28/2018 Time: 13:59 Bed 14 Private MD: Leonid Phan ED Physician Vamsi Heart HPI: 05/28 14:51 This 58 yrs old Black Female presents to ER via Wheelchair with complaints of Back kb Pain, Urinary Problem. 14:51 The patient presents with urinary symptoms, dark colored urine. Onset: The kb symptoms/episode began/occurred 1 week(s) ago. Modifying factors: The symptoms are alleviated by nothing, the symptoms are aggravated by nothing. Associated signs and symptoms: Pertinent positives: dark colored urine, Pertinent negatives: constipation, cramping, diarrhea, dyspareunia, dysuria, fever, hematuria, nausea, urinary frequency, vaginal bleeding, vaginal discharge, vomiting. Severity of symptoms: At their worst the symptoms were mild, moderate, in the emergency department the symptoms are unchanged. The patient has experienced a previous episode. The patient has been recently been admitted at [facility], was discharged last month. Pt reports dark colored urine for a week. Also reports low back pain that is chronic. Denies dysuria, frequency, urgency or hematuria. Historical: - Allergies: 14:08 No Known Allergies; aj - Home Meds: 14:08 hydrocodone-acetaminophen 5-500 mg Oral tab [Active]; levothyroxine oral for aj Hypothyroidism [Active]; - PMHx: 14:08 Hypothyroidism; morbid obesity; aj - PSHx: 14:08 multiple plates on hip and legs; aj - Immunization history:: Adult Immunizations up to date. - Social history:: Smoking status: Patient/guardian denies using tobacco. - Ebola Screening: : Patient negative for fever greater than or equal to 101.5 degrees Fahrenheit, and additional compatible Ebola Virus Disease symptoms Patient denies exposure to infectious person Patient denies travel to an Ebola-affected area in the 21 days before illness onset No symptoms or risks identified at this time. ROS: 14:50 Constitutional: Negative for fever, chills, and weight loss, Cardiovascular: Negative kb for chest pain, palpitations, and edema, Respiratory: Negative for shortness of breath, cough, wheezing, and pleuritic chest pain, Abdomen/GI: Negative for abdominal pain, nausea, vomiting, diarrhea, and constipation, MS/Extremity: Negative for injury and deformity, Skin: Negative for injury, rash, and discoloration, Neuro: Negative for headache, weakness, numbness, tingling, and seizure. 14:50 : Positive for dark urine. 14:50 Back: Positive for pain at rest, of the low back area. kb Exam: 14:50 Constitutional: This is a well developed, well nourished patient who is awake, alert, kb and in no acute distress. Head/Face: Normocephalic, atraumatic. Chest/axilla: Normal chest wall appearance and motion. Nontender with no deformity. No lesions are appreciated. Cardiovascular: Regular rate and rhythm with a normal S1 and S2. No gallops, murmurs, or rubs. Normal PMI, no JVD. No pulse deficits. Respiratory: Lungs have equal breath sounds bilaterally, clear to auscultation and percussion. No rales, rhonchi or wheezes noted. No increased work of breathing, no retractions or nasal flaring. Abdomen/GI: Soft, non-tender, with normal bowel sounds. No distension or tympany. No guarding or rebound. No evidence of tenderness throughout. Back: No spinal tenderness. No costovertebral tenderness. Full range of motion. Skin: Warm, dry with normal turgor. Normal color with no rashes, no lesions, and no evidence of cellulitis. MS/ Extremity: Pulses equal, no cyanosis. Neurovascular intact. Full, normal range of motion. Neuro: Awake and alert, GCS 15, oriented to person, place, time, and situation. Cranial nerves II-XII grossly intact. Motor strength 5/5 in all extremities. Sensory grossly intact. Cerebellar exam normal. Normal gait. Vital Signs: 14:08 BP 150 / 78; Pulse 73; Resp 20; Temp 97.9; Pulse Ox 98% on R/A; Weight 199.58 kg; aj Height 5 ft. 4 in. (162.56 cm); 14:08 Body Mass Index 75.53 (199.58 kg, 162.56 cm) aj MDM: 14:10 Patient medically screened. kb 14:49 Data reviewed: vital signs, nurses notes. Data interpreted: Pulse oximetry: on room air kb is 98 %. Interpretation: normal. Counseling: I had a detailed discussion with the patient and/or guardian regarding: the historical points, exam findings, and any diagnostic results supporting the discharge/admit diagnosis, lab results, the need for outpatient follow up, a family practitioner, to return to the emergency department if symptoms worsen or persist or if there are any questions or concerns that arise at home. 05/28 14:07 Order name: Urine Microscopic Only kb 05/28 14:40 Order name: Urine Dipstick--Ancillary (enter results) eb 05/28 14:07 Order name: Urine Dipstick-Ancillary (obtain specimen); Complete Time: 14:41 kb Administered Medications: 14:52 Drug: LevaQUIN 750 mg Route: PO; jl7 Disposition: 16:04 Co-signature as Attending Physician, Vamsi Heart MD. rn Disposition: 05/28/18 14:53 Discharged to Home. Impression: Urinary tract infection, site not specified. - Condition is Stable. - Discharge Instructions: Urinary Tract Infection, Adult, [id number]. - Prescriptions for Levaquin 750 mg Oral Tablet - take 1 tablet by ORAL route once daily for 7 days; 7 tablet. - Medication Reconciliation Form, Thank You Letter, Antibiotic Education, Prescription Opioid Use form. - Follow up: Emergency Department; When: As needed; Reason: Worsening of condition. Follow up: Private Physician; When: 2 - 3 days; Reason: Recheck today's complaints, Continuance of care, Re-evaluation by your physician. Signatures: Dispatcher [employer] Ginger Angeles, ODALIS DIAMOND-Letitia Ren RN RN aj Nieto, Roman, MD MD rn Leal, Jahala, RN RN jl7 Corrections: (The following items were deleted from the chart) 14:51 14:50 Constitutional: Negative for fever, chills, and weight loss, Cardiovascular: kb Negative for chest pain, palpitations, and edema, Respiratory: Negative for shortness of breath, cough, wheezing, and pleuritic chest pain, Abdomen/GI: Negative for abdominal pain, nausea, vomiting, diarrhea, and constipation, Back: Negative for injury and pain, MS/Extremity: Negative for injury and deformity, Skin: Negative for injury, rash, and discoloration, Neuro: Negative for headache, weakness, numbness, tingling, and seizure, kb 15:01 14:53 05/28/2018 14:53 Discharged to Home. Impression: Urinary tract infection, site jl7 not specified. Condition is Stable. Forms are Medication Reconciliation Form, Thank You Letter, Antibiotic Education, Prescription Opioid Use. Follow up: Emergency Department; When: As needed; Reason: Worsening of condition. Follow up: Private Physician; When: 2 - 3 days; Reason: Recheck today's complaints, Continuance of care, Re-evaluation by your physician. kb
[2018-05-28 15:14] LABS: Urine Blood TRACE (NEG); Urine Glucose NEGATIVE (NEG); Urine Protein 1+ (NEG)
[2018-05-28 15:17] LABS: Urine Bacteria LOADED /HPF (<20); Urine Culture Reflex Order REFLEXED
== END 2018-05-28 15:01 | disposition home or self-care (01) ==
LOC: ER 13:56
DX: N39.0 Urinary tract infection, site not specified (principal); E03.9 Hypothyroidism, unspecified
CPT/HCPCS: 81003; 81015; 87077; 87086; 87088; 87186; 99283

== ENCOUNTER 2018-09-06 15:49 | Inpatient (IN) | payer OTHER ==
[2018-09-06 16:51] LABS: Urine Bacteria LOADED /HPF (<20); Urine RBC 20-50 /HPF (NONE SEEN)
[2018-09-06 16:52] LABS: Urine Blood 2+ (NEG); Urine Glucose NEGATIVE (NEG); Urine Protein 1+ (NEG); Urine pH 6.5 (5.0-7.0)
[2018-09-06 16:52] LABS: Urine Culture Reflex Order REFLEXED
[2018-09-06 18:04] LABS: Absolute Lymphocytes (CBC) 0.5 K/uL (0.7-4.9); Absolute Monocytes 0.7 K/uL (0.1-1.3); Absolute Neutrophil 16.5 K/uL (1.8-8.0); Basophils % 0.1 % (0-1.3); Eosinophils % 0.2 % (0-4.4); Hematocrit 39.5 % (36.0-45.0); Monocytes % 4.1 % (3.3-12.3); RBC Red Blood Cell Count 4.35 M/uL (3.86-4.86)
[2018-09-06 18:20] LABS: Bilirubin Direct 0.2 mg/dL (0-0.2); Bilirubin Total 0.5 mg/dL (0.2-1.0); Potassium 4.1 mmol/L (3.5-5.1); Protein, Total 8.9 g/dL (6.4-8.2)
--- NOTE | 2018-09-06 18:49 | RAD REPORT ---
EXAM DESCRIPTION: CT - Stone Protocol - 09/06/2018 6:19 pm CLINICAL HISTORY: Abdominal pain. Right lower quadrant pain with vomiting COMPARISON: None. TECHNIQUE: Computed axial tomography of the abdomen pelvis was obtained without oral or IV contrast. Lack of IV and oral contrast limits evaluation of solid organs, bowel, and vessels. Coronal reformat shine images were obtained and reviewed. All CT scans are performed using dose optimization technique as appropriate and may include automated exposure control or mA/KV adjustment according to patient size. FINDINGS: A 12 millimeter calculus is present within the lower pole of the right kidney. A 13 millim eter calculus is present within the right ureteral pelvic junction Hounsfield unit 370. Mild right hy dronephrosis is present. A left renal calculus is not seen. A ureteral calculus is not visualized. . The liver, spleen, pancreas and adrenals appear grossly normal There is no evidence of diverticulitis. The appendix appears normal Diastases of the rectus abdominis muscles 9 centimeters is present IMPRESSION: A 13 millimeter right ureteral pelvic junction calculus resulting in mild right hydronep hrosis
--- NOTE | 2018-09-06 18:49 | RAD REPORT ---
EXAM DESCRIPTION: US - Abdomen Exam Limited - 09/06/2018 5:47 pm CLINICAL HISTORY: Abdominal pain. COMPARISON: None. FINDINGS: The gallbladder wall is not thickened. A gallstone is not seen. The biliary tree is normal caliber. IMPRESSION: Unremarkable gallbladder ultrasound.
[2018-09-06] MEDS ORDERED: CEFTRIAXONE/SWI 1gm 1 GM/10 ML SYR ONE (19:26)
--- NOTE | 2018-09-06 19:26 | ER ---
Nurse's Notes [facility] Name: Navarro Baker Age: 58 yrs Sex: Female : 1960 Arrival Date: 09/06/2018 Time: 15:51 Bed 5 Private MD: Diagnosis: Calculus of ureter;Urinary tract infection, site not specified Presentation: 09/06 15:56 Presenting complaint: Patient states: Right lower back pain since 1130 this morning la1 with vomiting. Transition of care: patient was not received from another setting of care. Onset of symptoms was September 06, 2018. Risk Assessment: Do you want to hurt yourself or someone else? Patient reports no desire to harm self or others. Initial Sepsis Screen: Does the patient meet any 2 criteria? No. Patient's initial sepsis screen is negative. Does the patient have a suspected source of infection? No. Patient's initial sepsis screen is negative. Care prior to arrival: None. 15:56 Method Of Arrival: Wheelchair la1 15:56 Acuity: ALEJANDRINA 3 la1 Historical: - Allergies: 15:56 No Known Allergies; la1 - PMHx: 15:56 Hypothyroidism; morbid obesity; la1 - Immunization history:: Adult Immunizations unknown. - Social history:: Smoking status: Patient/guardian denies using tobacco. - Ebola Screening: : No symptoms or risks identified at this time. Screenin:10 Abuse screen: Denies threats or abuse. Denies injuries from another. Nutritional sg screening: No deficits noted. Tuberculosis screening: No symptoms or risk factors identified. Never had TB. Fall Risk None identified. Assessment: 16:10 General: Appears in no apparent distress. obese, well groomed, well developed, well sg nourished, Behavior is calm, cooperative, appropriate for age. Pain: Complains of pain in right mid back Pain radiates to right upper quadrant Quality of pain is described as aching, crampy. Neuro: Level of Consciousness is awake, alert, obeys commands, Oriented to person, place, time, situation, Stamp Mounter are equal bilaterally Moves all extremities. Gait is steady, with use of walker, and wheelchair. Speech is normal. Cardiovascular: Patient's skin is warm and dry. Chest pain is denied. Respiratory: Airway is patent Respiratory effort is even, unlabored, Respiratory pattern is regular, symmetrical. GI: Abdomen is obese, Bowel sounds present X 4 quads. Reports upper abdominal pain, nausea. : No signs and/or symptoms were reported regarding the genitourinary system. EENT: No signs and/or symptoms were reported regarding the EENT system. Derm: Skin is intact, is healthy with good turgor, Skin is dry, Skin is normal, Skin temperature is warm. Musculoskeletal: No signs and/or symptoms reported regarding the musculoskeletal system. 17:00 Reassessment: Patient appears in no apparent distress at this time. Patient and/or ph family updated on plan of care and expected duration. Pain level reassessed. Patient is alert, oriented x 3, equal unlabored respirations, skin warm/dry/pink. Pt resting quietly, family at bedside, VSS, will continue to monitor. 18:00 Reassessment: Patient appears in no apparent distress at this time. Patient and/or sg family updated on plan of care and expected duration. Pain level reassessed. Patient is alert, oriented x 3, equal unlabored respirations, skin warm/dry/pink. awaiting lab results at this time, pt and pt family stated understanding, awaiting new orders at this time. 19:39 Reassessment: Patient appears in no apparent distress at this time. Patient and/or aa1 family updated on plan of care and expected duration. Pain level reassessed. Patient is alert, oriented x 3, equal unlabored respirations, skin warm/dry/pink. Awaiting admission orders and bed assignment. 20:35 Reassessment: Patient appears in no apparent distress at this time. Patient and/or aa1 family updated on plan of care and expected duration. Pain level reassessed. Patient is alert, oriented x 3, equal unlabored respirations, skin warm/dry/pink. Attempted to call report to 4th floor, was told nurse unavailable at this time and will call back. 21:04 Reassessment: Patient appears in no apparent distress at this time. Patient and/or aa1 family updated on plan of care and expected duration. Pain level reassessed. Patient is alert, oriented x 3, equal unlabored respirations, skin warm/dry/pink. Report called to Areli Doherty RN on 4th floor. Vital Signs: 15:58 Pulse 87; Resp 16; Temp 97.2; Pulse Ox 97% on R/A; Weight 226.8 kg; Height 5 ft. 4 in. la1 (162.56 cm); Pain 10/10; 15:58 BP 110 / 64; la1 16:44 Weight 193.1 kg (M); hb 17:10 BP 127 / 69; Pulse 82; Resp 17; Pulse Ox 98% ; sg 18:10 BP 132 / 70; Pulse 88; Resp 17; Pulse Ox 98% on R/A; sg 19:25 BP 130 / 71; Pulse 82; Resp 18; Temp 98.1; Pulse Ox 99% on R/A; aa1 20:32 BP 107 / 65; Pulse 79; Resp 18; Pulse Ox 97% on R/A; Pain 0/10; aa1 21:04 BP 112 / 67; Pulse 77; Resp 18; Temp 98.0; Pulse Ox 97% on R/A; Pain 0/10; aa1 16:44 Body Mass Index 73.07 (193.10 kg, 162.56 cm) hb ED Course: 15:51 Patient arrived in ED. as 15:57 Triage completed. la1 15:57 Arm band placed on right wrist. la1 16:07 Yoandy Bae PA is PHCP. jmm 16:07 Vamsi Heart MD is Attending Physician. jmm 16:35 Urine collected: clean catch specimen, cloudy, jose colored. sg 16:50 attempt IV start, unable to locate a site at this time, ERP notified. sg 17:00 Radiology exam delayed due to lab results not completed at this time. (BUN/Creatinine). bq 17:02 Ronni Rodriguez, RN is Primary Nurse. sg 17:20 awaiting Ultrasound guided IV by ERP or Andrew RN. sg 17:30 Ultrasound completed. Patient tolerated well. Note: daughter assisted moving pt. sg3 17:45 Andrew RN at bedside for IV start, blood collected. sg 17:49 US Abdomen Limited In Process Unspecified. EDMS 18:19 CT completed. Patient moved to CT via stretcher. Patient moved back from CT. kw1 18:20 CT Stone Protocol In Process Unspecified. EDMS 19:10 Patient has correct armband on for positive identification. Bed in low position. Call aa1 light in reach. Side rails up X2. Pulse ox on. NIBP on. 19:25 Colby Kim MD is Hospitalizing Provider. jmm 19:30 Inserted 20 gauge iv placed under ultrasound to left a/c on first attempt. Line with fc good blood return and flushes well. 20:31 No provider procedures requiring assistance completed. Patient admitted, IV remains in aa1 place. Administered Medications: 19:39 Not Given (Other Intervention Used): Rocephin - (cefTRIAXone) 1 grams IVPB once over 30 aa1 mins; (mix in 50 mL NS) 19:39 Drug: Rocephin 1 grams Route: IV; Rate: calculated rate; Site: left antecubital; aa1 19:44 Follow up: IV Status: Completed infusion aa1 Outcome: 19:25 Decision to Hospitalize by Provider. [facility] 21:14 Admitted to Med/surg accompanied by tech, family with patient, via wheelchair, room aa1 421, with chart, Report called to Areli Doherty RN 21:14 Condition: stable 21:14 Discharge instructions given to patient, family, Instructed on the need for admit, Demonstrated understanding of instructions. 21:23 Patient left the ED. fc Signatures: Dispatcher [employer] EDMS Ronni Rodriguez RN RN Blanca Gerardo RN RN aa1 Yoandy Bae PA PA Yue Overton Felicia, RN RN fc Martinez, Amelia as Attema, Lee, RN RN ut1 Genevieve Moise RN RN Josy Quiros RN RN Karen Pulido1 Jeannette Boogie 3
--- NOTE | 2018-09-06 19:27 | EDPHYS ---
Physician Documentation [facility] Name: Navarro Baker Age: 58 yrs Sex: Female : 1960 Arrival Date: 09/06/2018 Time: 15:51 Bed 5 Private MD: ED Physician Vamsi Heart HPI: 09/06 16:13 This 58 yrs old Black Female presents to ER via Wheelchair with complaints of Back jmm Pain, Abdominal Pain. 16:13 The patient presents with pain that is acute. The symptoms are located in the right m flank. Onset: The symptoms/episode began/occurred gradually, 3 day(s) ago. The pain radiates to the abdomen. Associated signs and symptoms: Pertinent positives: nausea, vomiting. This is a 58 year old female with a history hypothyroidism presents to the ED with complains of right sided back abdominal pain. patient states having one episode of vomiting earlier today. denies fever. . Historical: - Allergies: 15:56 No Known Allergies; la1 - PMHx: 15:56 Hypothyroidism; morbid obesity; la1 - Immunization history:: Adult Immunizations unknown. - Social history:: Smoking status: Patient/guardian denies using tobacco. - Ebola Screening: : No symptoms or risks identified at this time. ROS: 16:13 Constitutional: Negative for fever, chills, and weight loss, Cardiovascular: Negative jmm for chest pain, palpitations, and edema, Respiratory: Negative for shortness of breath, cough, wheezing, and pleuritic chest pain. 16:13 : Negative for injury, bleeding, discharge, and swelling, Neuro: Negative for headache, weakness, numbness, tingling, and seizure. 16:13 Abdomen/GI: Positive for abdominal pain, nausea and vomiting. 16:13 Back: Positive for flank pain. 16:13 All other systems are negative. Exam: 16:13 Head/Face: atraumatic. Eyes: EOMI, no conjunctival erythema appreciated Chest/axilla: jmm Normal chest wall appearance and motion. Cardiovascular: Regular rate and rhythm. No edema appreciated Respiratory: Normal respirations, no respiratory distress appreciated 16:13 Constitutional: The patient appears in no acute distress, alert, awake. 16:13 Abdomen/GI: Inspection: obese Palpation: soft, mild abdominal tenderness, in the right upper quadrant and right lower quadrant. 16:13 Back: CVA tenderness, that is moderate, is noted on the right. 16:13 Musculoskeletal/extremity: ROM: intact in all extremities. 16:13 Skin: Appearance: Color: normal in color. 16:13 Neuro: Orientation: is normal, Mentation: is normal, Memory: is normal. 16:13 Psych: Behavior/mood is pleasant, cooperative. Vital Signs: 15:58 Pulse 87; Resp 16; Temp 97.2; Pulse Ox 97% on R/A; Weight 226.8 kg; Height 5 ft. 4 in. la1 (162.56 cm); Pain 10/10; 15:58 BP 110 / 64; la1 16:44 Weight 193.1 kg (M); hb 17:10 BP 127 / 69; Pulse 82; Resp 17; Pulse Ox 98% ; sg 18:10 BP 132 / 70; Pulse 88; Resp 17; Pulse Ox 98% on R/A; sg 19:25 BP 130 / 71; Pulse 82; Resp 18; Temp 98.1; Pulse Ox 99% on R/A; aa1 20:32 BP 107 / 65; Pulse 79; Resp 18; Pulse Ox 97% on R/A; Pain 0/10; aa1 21:04 BP 112 / 67; Pulse 77; Resp 18; Temp 98.0; Pulse Ox 97% on R/A; Pain 0/10; aa1 16:44 Body Mass Index 73.07 (193.10 kg, 162.56 cm) hb MDM: 16:13 Patient medically screened. [facility] 19:24 Data reviewed: vital signs, nurses notes. Counseling: I had a detailed discussion with [facility] the patient and/or guardian regarding: the historical points, exam findings, and any diagnostic results supporting the discharge/admit diagnosis, lab results, radiology results, the need for further work-up and treatment in the hospital. ED course: I discussed the patient with Dr. Torres whom will consult on admission. I discussed the patient with Dr. Kim whom accepted admission. . 09/06 16:16 Order name: Urine Dipstick--Ancillary (enter results); Complete Time: 17:04 sc 09/06 16:25 Order name: Basic Metabolic Panel; Complete Time: 18:24 [facility] 09/06 16:25 Order name: CBC with Diff; Complete Time: 20:17 [facility] 09/06 16:25 Order name: Creatinine for Radiology; Complete Time: 18:24 [facility] 09/06 16:25 Order name: Hepatic Function; Complete Time: 18:24 [facility] 09/06 16:25 Order name: Lipase; Complete Time: 18:24 [facility] 09/06 16:25 Order name: Urine Microscopic Only; Complete Time: 17:04 [facility] 09/06 16:25 Order name: US Abdomen Limited; Complete Time: 18:51 [facility] 09/06 16:52 Order name: Urine Culture [facility] 09/06 17:59 Order name: CT Stone Protocol; Complete Time: 18:51 [facility] 09/06 18:13 Order name: Manual Differential; Complete Time: 20:17 [facility] 09/06 16:25 Order name: IV Saline Lock; Complete Time: 18:34 [facility] 09/06 16:25 Order name: Labs collected and sent; Complete Time: 18:34 [facility] 09/06 16:29 Order name: Vital Signs; Complete Time: 18:34 [facility] Administered Medications: 19:39 Not Given (Other Intervention Used): Rocephin - (cefTRIAXone) 1 grams IVPB once over 30 aa1 mins; (mix in 50 mL NS) 19:39 Drug: Rocephin 1 grams Route: IV; Rate: calculated rate; Site: left antecubital; aa1 19:44 Follow up: IV Status: Completed infusion aa1 Disposition: 09/06/18 19:25 Hospitalization ordered by Colby Kim for Observation. Preliminary diagnosis are Calculus of ureter, Urinary tract infection, site not specified. - Bed requested for Telemetry/MedSurg (observation). - Status is Observation. fc - Condition is Stable. - Problem is new. - Symptoms are unchanged. UTI on Admission? Yes Addendum: 09/08/2018 20:00 Co-signature as Attending Physician, Vamsi Heart MD. r n Signatures: Dispatcher [employer] EDMS Karen Monk RN RN kl Kern, Alissa, RN RN aa1 Yoandy Bae PA PA jmm Chretien, Felicia, RN RN fc Nieto, Roman, MD MD rn Attema, Lee RN MIHAELA la1 Corrections: (The following items were deleted from the chart) 09/06 16:53 16:26 Abdomen 1 View (KUB)+RAD.RAD.BRZ ordered. EDMS EDMS 18:04 16:51 Abdomen Pelvis W Con+CT.RAD.BRZ ordered. EDUT EDMS 20:06 19:25 Hospitalization Ordered by Colby Kim MD for Observation. Preliminary kl diagnosis is Calculus of ureter; Urinary tract infection, site not specified. Bed requested for Telemetry/MedSurg (observation). Status is Observation. Condition is Stable. Problem is new. Symptoms are unchanged. UTI on Admission? Yes. [facility] 21:23 20:06 09/06/2018 19:25 Hospitalization Ordered by Colby Kim MD for Observation. Preliminary diagnosis is Calculus of ureter; Urinary tract infection, site not specified. Bed requested for Telemetry/MedSurg (observation). Status is Observation. Condition is Stable. Problem is new. Symptoms are unchanged. UTI on Admission? Yes. kl
[2018-09-06 20:10] LABS: MPV 8.5 fL (7.6-11.3); Platelet Estimate ADEQ
[2018-09-06 20:11] LABS: Blood Morphology Comment NOT SEEN (NOT SEEN)
--- NOTE | 2018-09-06 20:48 | P.HP ---
Certification for Inpatient Patient admitted to: Observation With expected LOS: <2 Midnights Practitioner: I am a practitioner with admitting privileges, knowledge of patient current condition, hospital course, and medical plan of care. Services: Services provided to patient in accordance with Admission requirements found in Title 42 Section 412.3 of the Code of Federal Regulations Patient History Date of Service: 09/06/18 Reason for admission: ureterolithiasis History of Present Illness: Ms Baker is a 58 years old woman with history of obesity, hypothyroidism, who start with abdominal pain today around 11:30 AM. The pain was localized on her right lower quadrant radiated to right flank and back. Intensity of the pain is 10/10, colicky like. She has had some nausea and vomiting associated with. No fever or chills. Lab work remarkable for leukocytosis 17.8K with bandemia. UA is abnormal consistent with UTI. CT abd/pelvis shows a 13 mm right distal obstructive ureteral stone leading with mild hydronephrosis. Allergies No Known Allergies Allergy (Unverified 04/26/18 03:49) Home Medications: Albuterol Neb [Proventil 0.083% Neb Soln] 2.5 mg NEB TID PRN #90 amp 05/01/18 Aspirin [Aspirin EC 81 MG] 81 mg PO DAILY #30 tablet. 05/01/18 Levothyroxine [Synthroid*] 0.1 mg PO [id number] #30 tab 05/01/18 Pantoprazole [Protonix Tab*] 40 mg PO ACB #30 tab 05/01/18 acetaZOLAMIDE [Diamox*] 125 mg PO DAILY #30 tab 05/01/18 - Past Medical/Surgical History -: hypothyroidism -: morbid obesity -: multiple plates on hips and legs - Family History Family History: Reviewed- Non-Contributory - Social History Smoking Status: Never smoker Alcohol use: Yes CD- Drugs: No Caffeine use: Yes Place of Residence: Home Review of Systems 10-point ROS is otherwise unremarkable Physical Examination - Physical Exam General: Alert, In no apparent distress HEENT: Atraumatic, PERRLA, Mucous membr. moist/pink, EOMI, Sclerae nonicteric Neck: Supple, 2+ carotid pulse no bruit, No LAD, Without JVD or thyroid abnormality Respiratory: Clear to auscultation bilaterally, Normal air movement Cardiovascular: Regular rate/rhythm, Normal S1 S2 Gastrointestinal: Normal bowel sounds, Tenderness (right lower quadrant, right flank tenderness to palpation.) Musculoskeletal: No tenderness Integumentary: No rashes Neurological: Normal speech, Normal strength at 5/5 x4 extr, Normal tone, Normal affect Lymphatics: No axilla or inguinal lymphadenopathy - Studies Laboratory Data (last 24 hrs) 09/06/18 17:57: Creatinine 1.25 09/06/18 17:57: WBC 17.8 H, Hgb 12.4, Hct 39.5, Plt Count 240 09/06/18 17:57: Sodium 140, Potassium 4.1, BUN 28 H, Creatinine 1.28, Glucose 92 , Total Bilirubin 0.5, AST 14 L, ALT 12, Alkaline Phosphatase 102, Lipase 47 L Assessment and Plan - Problems (Diagnosis) (1) Ureterolithiasis Current Visit: Yes Status: Acute (2) Obesity Current Visit: Yes Status: Acute Qualifiers: Obesity type: unspecified obesity type Obesity classification: unspecified obesity classification Serious obesity comorbidity presence: unspecified whether serious comorbidity present Qualified Code(s): E66.9 - Obesity, unspecified (3) Hypothyroidism Current Visit: Yes Status: Acute Qualifiers: Hypothyroidism type: unspecified Qualified Code(s): E03.9 - Hypothyroidism , unspecified (4) Sepsis Current Visit: Yes Status: Acute Qualifiers: Sepsis type: sepsis due to unspecified organism Qualified Code(s): A41.9 - Sepsis, unspecified organism - Plan The patient will be admitted to the hospital due to sepsis, secondary to obstructive ureteral stone on her right side. Will start empiric antibiotic treatment. Order IV fluids, pain medication, NPO after MN for Cystoscopy in AM by Dr Torres. - Advance Directives Does patient have a Living Will: No Does patient have a Durable POA for Healthcare: No - Code Status/Comfort Care Code Status: Full Code
[2018-09-06] MEDS ORDERED: KETOROLAC 30 MG/ML INJ IV PRN (21:31)
[2018-09-06] MEDS ORDERED: ONDANSETRON 4 MG/2 ML VIAL IV PRN (21:31)
[2018-09-06] MEDS: NA CHLORIDE 0.9% 1,000 ML IV SCH (22:13)
[2018-09-06] MEDS: ACETAMINOPHEN 500 MG TAB PO PRN (22:13)
[2018-09-07 04:53] LABS: Absolute Lymphocytes (CBC) 0.8 K/uL (0.7-4.9); Absolute Monocytes 0.8 K/uL (0.1-1.3); Absolute Neutrophil 10.1 K/uL (1.8-8.0); Basophils % 0.1 % (0-1.3); Eosinophils % 1.6 % (0-4.4); Hematocrit 37.3 % (36.0-45.0); Lymphocytes % 6.6 % (15.3-44.8); MPV 8.5 fL (7.6-11.3); RBC Red Blood Cell Count 4.15 M/uL (3.86-4.86)
[2018-09-07] MEDS ORDERED: CEFTRIAXONE 1 GM/NS 50 ML 1 GM/50 ML BAG IV SCH (09:00)
[2018-09-07] MEDS: CEFTRIAXONE/SWI 1gm 1 GM/10 ML SYR IV SCH (09:00)
[2018-09-07] MEDS: NA CHLORIDE 0.9% 1,000 ML IV SCH (09:30)
[2018-09-07] MEDS: KETOROLAC 30 MG/ML INJ IV PRN ×2 (09:31→23:24)
[2018-09-07 10:52] LABS: Potassium 4.2 mmol/L (3.5-5.1); Uric Acid 7.6 mg/dL (2.6-6.0)
[2018-09-07] MEDS ORDERED: SUCCINYLCHOLINE 20 MG/ML (10 ML) IV ONE (11:38)
[2018-09-07] MEDS ORDERED: Ringers Lactate 1,000 ML IV ONE (11:45)
[2018-09-07] MEDS ORDERED: GLYCOPYRROLATE 0.2 MG/ML SYR ONE (11:56)
[2018-09-07] MEDS ORDERED: PROPOFOL 200 MG/20 ML VIAL IV ONE (12:46)
[2018-09-07] MEDS ORDERED: LIDOCAINE 1% MPF 5 ML VIAL ONE (12:46)
[2018-09-07] MEDS ORDERED: FENTANYL CITR 100 MCG/2 ML ONE (12:46)
[2018-09-07] MEDS ORDERED: ROCURONIUM 50 MG/5 ML VIAL IV ONE (12:47)
[2018-09-07] MEDS ORDERED: Phenylephrine HCl 10 MG/ML 1 ML VIAL ONE (13:03)
[2018-09-07] MEDS ORDERED: NS 0.9% VIAL 10 ML ONE (13:03)
[2018-09-07] MEDS ORDERED: ONDANSETRON 4 MG/2 ML VIAL ONE (13:13)
[2018-09-07] MEDS ORDERED: KETOROLAC 30 MG/ML INJ ONE (13:13)
--- NOTE | 2018-09-07 13:41 | CON ---
History Of Present Illness: A 58-year-old lady with morbid obesity, 425 pounds, history of hypothyro idism, started to have right flank pain around 11 a.m. yesterday. She was brought to the emergency r oom at that time, did a CT scan revealing 2 stones, a 12 mm calculus in the right lower pole and a 13 mm calculus in the right UPJ, measuring Hounsfield units 370, consistent with uric acid stone. No l eft kidney stones were seen. No ureteral calculus was seen. There was some diastasis of the rectus abdominis muscle measuring 9 cm. The patient was admitted overnight due to high white count of 18,00 0 and pain. Her UA was consistent with a UTI. She was given IV antibiotics. Urine culture was sent . Allergies: NO KNOWN DRUG ALLERGIES. Home Medications: Albuterol, aspirin, levothyroxine, Protonix, and Diamox. Past Medical History And Surgical History: Morbid obesity, hypothyroidism, multiple plates in hips a nd legs. Family History: Noncontributory. Social History: She does have some alcohol use, but never smoked. No drug use. She does use [employer]. She resides at home. Review of Systems: Ten-point review of systems otherwise unremarkable. Physical Examination: Vital Signs: Stable, afebrile. General: She is alert and oriented. HEENT: Atraumatic and normocephalic. Neck: Supple. Respiratory: Clear to auscultation. Cardiovascular: Normal S1 and S2. Gastrointestinal: Normal bowel sounds. Soft. Musculoskeletal: No tenderness. Skin: No rashes. Neurologic: Awake. Normal speech. Normal gait. Lymphatics: No axillary lymphadenopathy. Laboratory Data: Creatinine 1.25. White count 17.8, H and H are 12 and 40, platelets 240. Electrol ytes; sodium 140, potassium 4.1, BUN 28, creatinine 1.28, and glucose 92. LFTs normal. Assessment: Right ureteropelvic junction calculus, possible uric acid stone that is measuring 13 mm, there is also a 12 mm lower pole right kidney. Plan: Plan is to do cysto, possible push the stone back into the kidney, place a stent for drainage, put on some stone dissolving medication and also check her uric acid level. NABOR/FOREST Voice ID: [id number] Report ID: [id number]
[2018-09-07] MEDS ORDERED: MORPHINE 4 MG/ML SYR ONE (13:58)
--- NOTE | 2018-09-07 13:58 | RAD REPORT ---
EXAM DESCRIPTION: RAD - Cystography - 09/07/2018 1:51 pm FINDINGS: Portable C-arm imaging was utilized during fluoroscopic assisted placement of a right uret eral stent. There were 11 images acquired. Fluoro time was 1 minutes 4 seconds. No suspicious or unexpected findings.
[2018-09-07] MEDS: D5W 1,000 ML with NA BICARB 8.4% 100 MEQ IV SCH ×6 (14:00→21:19)
--- NOTE | 2018-09-07 16:26 | P.PN ---
Subjective Date of Service: 09/07/18 Chief Complaint: ureterolithiasis Patient seen and examined at bedside with RN. Chart reviewed. Case discussed with urology. No complaints to offer overnight. Has been doing well overall. Is scheduled to lithotripsy today Review of Systems 10-point ROS is otherwise unremarkable Physical Examination - Vital Signs Temperature: 97.9 F Blood Pressure: 93/50 Pulse: 90 Respirations: 16 Pulse Ox (%): 98 - Physical Exam General: Alert, In no apparent distress HEENT: Atraumatic, PERRLA, EOMI Neck: Supple, JVD not distended Respiratory: Clear to auscultation bilaterally, Normal air movement Cardiovascular: Regular rate/rhythm, Normal S1 S2 Gastrointestinal: Normal bowel sounds, No tenderness Musculoskeletal: No tenderness Integumentary: No rashes Neurological: Normal speech, Normal tone, Normal affect Lymphatics: No axilla or inguinal lymphadenopathy - Studies Laboratory Data (last 24 hrs) 09/07/18 09:59: Uric Acid Cancelled 09/07/18 09:59: Sodium 143, Potassium 4.2, BUN 26 H, Creatinine 1.29, Glucose 90 , Uric Acid 7.6 H 09/07/18 03:51: WBC 11.9 H D, Hgb 11.9 L, Hct 37.3, Plt Count 225 09/06/18 17:57: Creatinine 1.25 09/06/18 17:57: WBC 17.8 H, Hgb 12.4, Hct 39.5, Plt Count 240 09/06/18 17:57: Sodium 140, Potassium 4.1, BUN 28 H, Creatinine 1.28, Glucose 92 , Total Bilirubin 0.5, AST 14 L, ALT 12, Alkaline Phosphatase 102, Lipase 47 L Medications List Reviewed: Yes Assessment And Plan - Current Problems (Diagnosis) (1) Ureterolithiasis Current Visit: Yes Status: Acute Plan: Right ureteropelvic junction calculus, possible uric acid stone that is measuring 13 mm, there is also a 12 mm lower pole right kidney. -neurology is consulted. Appreciated recommendations at this time. -scheduled for a lithotripsy this morning. -will follow up post lithotripsy at this time -UA is positive for E. coli -past history of ESBL. -currently on Rocephin will update cultures to make changes to the antibiotic (2) Hypothyroidism Current Visit: Yes Status: Chronic Qualifiers: Hypothyroidism type: acquired Qualified Code(s): E03.9 - Hypothyroidism, unspecified (3) Obesity Current Visit: Yes Status: Chronic Qualifiers: Obesity type: unspecified obesity type Obesity classification: unspecified obesity classification Serious obesity comorbidity presence: unspecified whether serious comorbidity present Qualified Code(s): E66.9 - Obesity, unspecified Discharge Plan: Home Plan to discharge in: 48 Hours - Code Status/Comfort Care Code Status Assessed: Yes Critical Care: No
[2018-09-08] MEDS: D5W 1,000 ML with NA BICARB 8.4% 100 MEQ IV SCH ×6 (04:40→19:20)
[2018-09-08] MEDS: KETOROLAC 30 MG/ML INJ IV PRN ×2 (07:05→12:26)
[2018-09-08] MEDS: ALLOPURINOL 300 MG TAB PO SCH (08:45)
[2018-09-08] MEDS: CEFTRIAXONE/SWI 1gm 1 GM/10 ML SYR IV SCH (08:46)
[2018-09-08] MEDS: Meropenem 1,000 MG in NA CHLORIDE 0.9% 100 ML IV SCH ×2 (12:22→21:33)
--- NOTE | 2018-09-08 15:05 | P.PN ---
Subjective Date of Service: 09/08/18 Chief Complaint: ureterolithiasis Patient seen and examined at bedside with RN. Chart reviewed. Case discussed with urology. No complaints to offer overnight. Has been doing well overall. status post lithotripsy POD# 1 Review of Systems 10-point ROS is otherwise unremarkable Physical Examination - Vital Signs Temperature: 97.8 F Blood Pressure: 105/73 Pulse: 80 Respirations: 22 Pulse Ox (%): 98 - Physical Exam General: Alert, In no apparent distress HEENT: Atraumatic, PERRLA, EOMI Neck: Supple, JVD not distended Respiratory: Clear to auscultation bilaterally, Normal air movement Cardiovascular: Regular rate/rhythm, Normal S1 S2 Gastrointestinal: Normal bowel sounds, No tenderness Musculoskeletal: No tenderness Integumentary: No rashes Neurological: Normal speech, Normal tone, Normal affect Lymphatics: No axilla or inguinal lymphadenopathy - Studies Medications List Reviewed: Yes Assessment And Plan - Current Problems (Diagnosis) (1) Ureterolithiasis Onset Date: 09/08/18 Current Visit: Yes Status: Acute Plan: Right ureteropelvic junction calculus, possible uric acid stone that is measuring 13 mm, there is also a 12 mm lower pole right kidney. -neurology is consulted. Appreciated recommendations at this time. -s/p Lithotripsy POD # 1 -UA is positive for Gram - Rods, Past h.o of ESBL -Started on Meropenum 08/24 (2) Hypothyroidism Onset Date: 09/08/18 Current Visit: Yes Status: Chronic Qualifiers: Hypothyroidism type: acquired Qualified Code(s): E03.9 - Hypothyroidism, unspecified (3) Obesity Onset Date: 09/08/18 Current Visit: Yes Status: Chronic Qualifiers: Obesity type: unspecified obesity type Obesity classification: unspecified obesity classification Serious obesity comorbidity presence: unspecified whether serious comorbidity present Qualified Code(s): E66.9 - Obesity, unspecified Discharge Plan: Home Plan to discharge in: 48 Hours - Code Status/Comfort Care Code Status Assessed: Yes Critical Care: No
--- NOTE | 2018-09-08 16:52 | PN ---
Subjective: The patient feels well. She family members. Objective: Vital Signs: 98.1, 78, 22, 101/79, and 94% sat. I's and O's show 1440 in, total output not recorded. Laboratory Data: [place]ows [place] [address] [place] [address] yesterday. pending. Assessment And Plan: Status post cysto, stent placement for possible uric acid stone, elevated uric acid, significant for gout. She will be placed on allopurinol, also placed on bicarbonate. Trying t o dissolve the stones. We will wait for the final urine culture to come back. She is growing gram-n egative rods, greater than 100,000. Rule out extended spectrum beta-lactamases. She is on meropenem currently. NABOR[employer]FOREST Voice ID: [id number] Report ID: [id number]
[2018-09-08] MEDS ORDERED: Meropenem 1,000 MG in NA CHLORIDE 0.9% 100 ML IV SCH (17:00)
[2018-09-09] MEDS: ACETAMINOPHEN 500 MG TAB PO PRN ×2 (00:22→08:22)
[2018-09-09] MEDS: D5W 1,000 ML with NA BICARB 8.4% 100 MEQ IV SCH ×6 (03:30→16:31)
[2018-09-09 06:40] LABS: Absolute Lymphocytes (CBC) 0.7 K/uL (0.7-4.9); Absolute Monocytes 0.7 K/uL (0.1-1.3); Absolute Neutrophil 5.6 K/uL (1.8-8.0); Basophils % 0.5 % (0-1.3); Eosinophils % 3.8 % (0-4.4); Hematocrit 36.1 % (36.0-45.0); Lymphocytes % 9.1 % (15.3-44.8); MPV 8.3 fL (7.6-11.3); Monocytes % 10.1 % (3.3-12.3); RBC Red Blood Cell Count 3.97 M/uL (3.86-4.86)
[2018-09-09 06:50] LABS: Potassium 3.8 mmol/L (3.5-5.1)
[2018-09-09 07:40] LABS: Urine Appearance CLOUDY; Urine Bilirubin NEGATIVE (NEG); Urine Blood 3+ (NEG); Urine Color YELLOW; Urine Glucose NEGATIVE (NEG); Urine Protein 2+ (NEG); Urine Specific Gravity 1.015 (1.005-1.030); Urine pH 5.5 (5.0-7.0)
[2018-09-09] MEDS: ALLOPURINOL 300 MG TAB PO SCH (08:18)
[2018-09-09 08:47] LABS: Urine Bacteria 20-50 /HPF (<20); Urine Culture Reflex Order REFLEXED; Urine Mucus 2+ /HPF (NONE SEEN); Urine RBC >50 /HPF (NONE SEEN)
[2018-09-09] MEDS: Meropenem 1,000 MG in NA CHLORIDE 0.9% 100 ML IV SCH ×2 (09:00→21:00)
--- NOTE | 2018-09-09 15:42 | P.PN ---
Subjective Date of Service: 09/09/18 Chief Complaint: ureterolithiasis Patient seen and examined at bedside with RN. Chart reviewed. Case discussed with urology. No complaints to offer overnight. Has been doing well overall. status post lithotripsy POD# 2 Review of Systems 10-point ROS is otherwise unremarkable Physical Examination - Vital Signs Temperature: 98.2 F Blood Pressure: 110/64 Pulse: 76 Respirations: 20 Pulse Ox (%): 97 - Physical Exam General: Alert, In no apparent distress HEENT: Atraumatic, PERRLA, EOMI Neck: Supple, JVD not distended Respiratory: Clear to auscultation bilaterally, Normal air movement Cardiovascular: Regular rate/rhythm, Normal S1 S2 Gastrointestinal: Normal bowel sounds, No tenderness Musculoskeletal: No tenderness Integumentary: No rashes Neurological: Normal speech, Normal tone, Normal affect Lymphatics: No axilla or inguinal lymphadenopathy - Studies Microbiology Data (last 24 hrs): 09/06/18 16:12 Clean Catch Urine [place] Count - Final >100,000 CFU/ML. 09/06/18 16:12 Clean Catch Urine - Final Escherichia Coli Medications List Reviewed: Yes Assessment And Plan - Current Problems (Diagnosis) (1) Ureterolithiasis Onset Date: 09/08/18 Current Visit: Yes Status: Acute Plan: Right ureteropelvic junction calculus, possible uric acid stone that is measuring 13 mm, there is also a 12 mm lower pole right kidney. -neurology is consulted. Appreciated recommendations at this time. -s/p Lithotripsy POD # 2 -UA is positive for Gram - Rods, Past h.o of ESBL -Started on Meropenum 09/24 (2) Hypothyroidism Onset Date: 09/08/18 Current Visit: Yes Status: Chronic Qualifiers: Hypothyroidism type: acquired Qualified Code(s): E03.9 - Hypothyroidism, unspecified (3) Obesity Onset Date: 09/08/18 Current Visit: Yes Status: Chronic Qualifiers: Obesity type: unspecified obesity type Obesity classification: unspecified obesity classification Serious obesity comorbidity presence: unspecified whether serious comorbidity present Qualified Code(s): E66.9 - Obesity, unspecified Discharge Plan: Home Plan to discharge in: 48 Hours - Code Status/Comfort Care Code Status Assessed: Yes Critical Care: No
[2018-09-09] MEDS ORDERED: TRAMADOL HCL 50 MG TAB PO PRN (15:43)
[2018-09-09] MEDS: SODIUM BICARB 325 MG TAB PO SCH (16:30)
--- NOTE | 2018-09-09 20:28 | PN ---
Subjective: The patient is doing well. Objective: Her urine grew E coli ESBL. Of note, her creatinine is up today to 1.7. Her bicarb is a lso up from 21 to 27, possibly due to the IV bicarb given to her, which is good. Her CBC is stable, normal white count 7.3. Urine pH still acidic though at 5.5. So, she is going to get a PICC line. She lost her IV today. I am going to start her on bicarb tabs, try to get the urine more alkaline ab ove a pH of 6.5 to dissolve those uric acid stones and encourage hydration. PB/MODL Voice ID: [id number] Report ID: [id number]
[2018-09-10] MEDS: D5W 1,000 ML with NA BICARB 8.4% 100 MEQ IV SCH ×6 (00:40→08:00)
[2018-09-10] MEDS ORDERED: HYDROCODONE/APAP 10/325 TAB PO PRN (02:39)
[2018-09-10] MEDS: SODIUM BICARB 325 MG TAB PO SCH ×2 (02:51→09:29)
--- NOTE | 2018-09-10 08:49 | RAD REPORT ---
EXAM DESCRIPTION: RAD - Chest Single View - 09/10/2018 4:33 am CLINICAL HISTORY: Device placement PICC line placement COMPARISON: April 2018 FINDINGS: A PICC line has been inserted with its tip in the superior vena cava. The lungs appear clear of acute infiltrate. The heart is mildly enlarged IMPRESSION: PICC line with its tip in the superior vena cava
[2018-09-10] MEDS: Meropenem 1,000 MG in NA CHLORIDE 0.9% 100 ML IV SCH (09:29)
[2018-09-10] MEDS: ALLOPURINOL 300 MG TAB PO SCH (09:29)
--- NOTE | 2018-09-10 10:17 | RAD REPORT ---
EXAM DESCRIPTION: CT - Stone Protocol - 09/10/2018 8:58 am CLINICAL HISTORY: Right-sided kidney stone, abdominal and flank pain, ureteral stent placement COMPARISON: CT imaging September 06 TECHNIQUE: Axial 5 mm thick images were obtained without oral or IV contrast. The chdvy-to-xbey span s the entirety of the system including uppermost abdomen and lung bases. All CT scans are performed using dose optimization technique as appropriate and may include automated exposure control or mA/KV adjustment according to patient size. FINDINGS: Double pigtail stent is in place. Proximal pigtail is in the upper pole of the right kidne y. A 12-2013 millimeter triangular shaped stone remains in the lower pole calyx. A second 10 mm round calcification is present in the pelvis adjacent to the stent. No stone or stone fragment seen along the course of the stent within the ureter. No bladder calculus. No suspicious renal masses. Isodense masses and pyelonephritis are not excluded on a stone protocol CT scan. No urinary bladder suspicious finding. No significant adrenal finding. Solid abdominal viscera, biliary structures and bowel show no new findings over this short interval. IMPRESSION: Right-sided double pigtail stent in place in good position. A 12-13 millimeter triangular-shaped calcification remains in the lower pole calyx of the right kidne y. A 10 millimeter round calcification has been displaced to the pelvis. No other stone or stone fragment along the course of the stent. Isodense masses and pyelonephritis are not excluded on stone protocol technique.
[2018-09-10 13:45] LABS: Potassium 3.8 mmol/L (3.5-5.1)
--- NOTE | 2018-09-10 14:06 | PN ---
Subjective: The patient has been accepted to [facility] for IV meropenem. Continue drainage, cont inue bicarb tabs for resolving the uric acid stones and keep alkaline in the urine keeping the urine pH above 6.5. We will keep the stent in and re-stent here in a month. If the stones have been resol pérez, we can pull the stent and today, we will check a Chem-7 and UA again prior to leaving. NABOR/FOREST Voice ID: [id number] Report ID: [id number]
--- NOTE | 2018-09-10 15:34 | P.DS ---
Admission Date: 09/07/18 Discharge Date: 09/10/18 Disposition: ROUTINE DISCHARGE Discharge Condition: GOOD Reason for Admission: ureterolithiasis Consultations: Urology - Problems (1) Ureterolithiasis Onset Date: 09/08/18 Current Visit: Yes Status: Acute (2) Hypothyroidism Onset Date: 09/08/18 Current Visit: Yes Status: Chronic Qualifiers: Hypothyroidism type: acquired Qualified Code(s): E03.9 - Hypothyroidism, unspecified (3) Obesity Onset Date: 09/08/18 Current Visit: Yes Status: Chronic Qualifiers: Obesity type: unspecified obesity type Obesity classification: unspecified obesity classification Serious obesity comorbidity presence: unspecified whether serious comorbidity present Qualified Code(s): E66.9 - Obesity, unspecified Brief History of Present Illness: Ms Baker is a 58 years old woman with history of obesity, hypothyroidism, who start with abdominal pain today around 11:30 AM. The pain was localized on her right lower quadrant radiated to right flank and back. Intensity of the pain is 10/10, colicky like. She has had some nausea and vomiting associated with. No fever or chills. Lab work remarkable for leukocytosis 17.8K with bandemia. UA is abnormal consistent with UTI. CT abd/pelvis shows a 13 mm right distal obstructive ureteral stone leading with mild hydronephrosis. Hospital Course: Overall during the hospital stay patient remained stable Patient was initially admitted to the hospital for right-sided ureteral lithiasis. Urology was consulted. Patient had lithotripsy done and had stones removed. Stones were checked for uric acid and was positive. Patient's kidney stones most likely secondary to gout. Patient also had a urine analysis done here in the hospital which was positive for E.SBL. Patient was started on meropenem. Patient did well overall while here in the hospital and was transferred to assisted facility for IV antibiotics for total 14 days for her multidrug resistant E. coli. [facility] physician was called sign- out was given recommendations were made to recheck her UA and BMP tomorrow to check for any improvement. Physician was also notified to continue patient on allopurinol and sodium bicarb to maintain the urine pH around 6.5. While here in the hospital patient also noted to have JEANNE which was most likely secondary to dehydration versus Toradol. Toradol. Patient's creatinine improved within 24 hr. Patient thus was transferred to assisted facility under stable condition. Vital Signs/Physical Exam: Temp Pulse Resp BP Pulse Ox 97.9 F 79 18 111/71 94 09/10/18 12:00 09/10/18 12:00 09/10/18 12:00 09/10/18 12:00 09/10/18 12:00 General: Alert, In no apparent distress HEENT: Atraumatic, PERRLA, EOMI Neck: Supple, JVD not distended Respiratory: Clear to auscultation bilaterally, Normal air movement Cardiovascular: Regular rate/rhythm, Normal S1 S2 Gastrointestinal: Normal bowel sounds, No tenderness Musculoskeletal: No tenderness Integumentary: No rashes Neurological: Normal speech, Normal tone, Normal affect Lymphatics: No axilla or inguinal lymphadenopathy Laboratory Data at Discharge: WBC 7.3 K/uL (4.3-10.9) D 09/09/18 06:09 Hgb 11.5 g/dL (12.0-15.0) L 09/09/18 06:09 Hct 36.1 % (36.0-45.0) 09/09/18 06:09 Plt Count 199 K/uL (152-406) 09/09/18 06:09 Sodium 144 mmol/L (136-145) 09/10/18 13:19 Potassium 3.8 mmol/L (3.5-5.1) 09/10/18 13:19 BUN 21 mg/dL (7-18) H 09/10/18 13:19 Creatinine 1.46 mg/dL (0.55-1.3) H 09/10/18 13:19 Glucose 99 mg/dL (74-106) 09/10/18 13:19 Uric Acid 7.6 mg/dL (2.6-6.0) H 09/07/18 09:59 Total Bilirubin 0.5 mg/dL (0.2-1.0) 09/06/18 17:57 AST 14 U/L (15-37) L 09/06/18 17:57 ALT 12 U/L (12-78) 09/06/18 17:57 Alkaline Phosphatase 102 U/L (45-117) 09/06/18 17:57 Lipase 47 U/L (73-393) L 09/06/18 17:57 Home Medications: Aspirin 81 mg PO DAILY 09/07/18 Hydrocodone 10/APAP 325 [Glenelg 10/325*] 1 tab PO Q6HR PRN 09/07/18 Levothyroxine [Synthroid*] 100 mcg PO [id number] 09/07/18 Pantoprazole [Protonix Tab*] 40 mg PO DAILY 09/07/18 acetaZOLAMIDE [Acetazolamide] 125 mg PO DAILY 09/07/18 Allopurinol [Zyloprim*] 300 mg PO DAILY #30 tab 09/10/18 Na Bicarb Tab [Sodium Bicarb 325 MG Tab*] 650 mg PO BID #60 tab 09/10/18 traMADol HCL [Ultram*] 50 mg PO Q6H PRN #30 tab 09/10/18 New Medications: Allopurinol [Zyloprim*] 300 mg PO DAILY #30 tab Na Bicarb Tab [Sodium Bicarb 325 MG Tab*] 650 mg PO BID #60 tab traMADol HCL [Ultram*] 50 mg PO Q6H PRN #30 tab PRN Reason: Pain Scale 5-7 (Moderate) Patient Discharge Instructions: Please repeat at and [facility] on Friday09/11/2018. Keep the Urine PH around 6.5 Diet: Regular Activity: Ad anne Followup: Ruth Torres MD [ACTIVE - CAN ADMIT] - (call to schedule appointment)
[2018-09-10] MEDS ORDERED: DOCUSATE NA 100 MG CAP PO SCH (21:00)
[2018-09-10] MEDS ORDERED: Meropenem 1,000 MG in NA CHLORIDE 0.9% 100 ML IV SCH (21:00)
== END 2018-09-10 15:58 | disposition swing bed (61) | DRG 660 ==
LOC: ER 15:49 → ERHOLD 19:54 → 4TH 21:06 → OBSVTOIN 09-07 15:05
PROVIDERS: ADMIT Internal Medicine; ATTEND Family Medicine
PROC: 0T768DZ Dilation of Right Ureter with Intraluminal Device, Via Natural or Artificial Opening Endoscopic (ICD-10-PCS; 2018-09-07)
PROC: BT1DYZZ Fluoroscopy of Right Kidney, Ureter and Bladder using Other Contrast (ICD-10-PCS; 2018-09-07)
PROC: 02HV33Z Insertion of Infusion Device into Superior Vena Cava, Percutaneous Approach (ICD-10-PCS; principal; 2018-09-10)
DX: N13.2 Hydronephrosis with renal and ureteral calculous obstruction (principal); Z68.45 Body mass index [BMI] 70 or greater, adult; N39.0 Urinary tract infection, site not specified; E03.9 Hypothyroidism, unspecified; E66.01 Morbid (severe) obesity due to excess calories; R11.2 Nausea with vomiting, unspecified; M62.08 Separation of muscle (nontraumatic), other site; R80.3 Bence Jones proteinuria; B96.20 Unspecified Escherichia coli [E. coli] as the cause of diseases classified elsewhere; Z16.12 Extended spectrum beta lactamase (ESBL) resistance; N17.9 Acute kidney failure, unspecified; E86.0 Dehydration; E79.0 Hyperuricemia without signs of inflammatory arthritis and tophaceous disease
CPT/HCPCS: 36415; 51600; 71045; 74176; 74430; 76377; 76705; 80048; 80076; 81001; 81003; 81015; 83690; 84550; 85025; 87077; 87086; 87088; 87186; 96374; 99285; G0378; J0330; J0696; J2370; J2405; J2704; J3010; J7030; Q9967

== ENCOUNTER 2018-10-13 08:53 | Day surgery (SDC) | payer OTHER ==
[2018-10-12 10:05] LABS: Urine Appearance CLOUDY; Urine Bilirubin NEGATIVE (NEG); Urine Blood 3+ (NEG); Urine Color YELLOW; Urine Glucose NEGATIVE (NEG); Urine Protein 1+ (NEG); Urine Urobilinogen 0.2 mg/dL (0.2-1.0); Urine pH 5.5 (5.0-7.0)
[2018-10-12 10:07] LABS: Protime INR 1.07
[2018-10-12 10:12] LABS: Absolute Lymphocytes (CBC) 0.8 K/uL (0.7-4.9); Absolute Monocytes 0.3 K/uL (0.1-1.3); Basophils % 0.6 % (0-1.3); Eosinophils % 6.6 % (0-4.4); Hematocrit 37.6 % (36.0-45.0); Lymphocytes % 14.3 % (15.3-44.8); MPV 7.8 fL (7.6-11.3); Monocytes % 5.7 % (3.3-12.3); RBC Red Blood Cell Count 4.11 M/uL (3.86-4.86)
[2018-10-12 10:18] LABS: Phosphorus 3.4 mg/dL (2.5-4.9); Uric Acid 2.7 mg/dL (2.6-6.0)
[2018-10-12 10:19] LABS: Potassium 4.3 mmol/L (3.5-5.1)
[2018-10-12 10:23] LABS: Urine Microscopic Reflex ORDER UMIC
[2018-10-12 10:49] LABS: Urine Bacteria 20-50 /HPF (<20); Urine Culture Reflex Order REFLEXED; Urine Mucus 2+ /HPF (NONE SEEN); Urine RBC 20-50 /HPF (NONE SEEN); Urine Yeast with Hyphae PRESENT
--- NOTE | 2018-10-12 10:49 | RAD REPORT ---
EXAM DESCRIPTION: RAD - Chest Pa And Lat (2 Views) - 10/12/2018 10:28 am CLINICAL HISTORY: preop Chest pain. COMPARISON: Abdomen 1 View (KUB) dated 10/08/2018; Chest Single View dated 09/10/2018; Chest Single Vi ew dated 05/01/2018; Chest Single View dated 04/29/2018 FINDINGS: The lungs are clear. The heart is upper limit of normal in size. No displaced fractures. IMPRESSION: No acute or concerning finding suspected.
--- NOTE | 2018-10-12 11:30 | EKG ---
Test Date: 2018-10-12 Test Time: 09:37:10 [employer] Professor: HARRY MEASUREMENT RESULTS: Intervals: Rate: 79 RI: 176 QRSD: 86 QT: 392 QTc: 449 [place]: P: 35 RI: 176 QRS: 20 T: 21 INTERPRETIVE STATEMENTS: Normal sinus rhythm Cannot rule out Anterior infarct, age undetermined Abnormal ECG Compared to ECG 04/26/2018 00:44:50 Sinus bradycardia no longer present First degree AV block no longer present Myocardial infarct finding still present Electronically Signed On 10-12-18 10:47:19 CSR RETAIL by Art Goode
[2018-10-13] MEDS ORDERED: Ringers Lactate 1,000 ML IV ONE (09:26)
[2018-10-13] MEDS ORDERED: GENTAMICIN 80 MG/100 ML BAG 80 MG/100 ML BAG IV ONE (09:26)
[2018-10-13] MEDS ORDERED: LIDOCAINE 1% MPF 5 ML VIAL ONE ×2 (09:47→10:27)
[2018-10-13] MEDS ORDERED: FENTANYL CITR 100 MCG/2 ML ONE (11:23)
[2018-10-13] MEDS ORDERED: MIDAZOLAM HCL 2 MG/2 ML INJ ONE (11:23)
[2018-10-13] MEDS ORDERED: LIDOCAINE 2% MPF 5 ML VIAL ONE (11:23)
[2018-10-13] MEDS ORDERED: PROPOFOL 200 MG/20 ML VIAL IV ONE (11:23)
[2018-10-13] MEDS ORDERED: ROCURONIUM 50 MG/5 ML VIAL IV ONE (11:38)
[2018-10-13] MEDS ORDERED: GLYCOPYRROLATE 0.2 MG/ML SYR ONE ×2 (12:25→12:26)
[2018-10-13] MEDS ORDERED: NEOSTIGMINE 1 MG/ML -10 ML VIAL ONE (12:25)
[2018-10-13] MEDS: MORPHINE 4 MG/ML SYR ONE ×2 (12:53→12:58)
[2018-10-13] MEDS ORDERED: TRAMADOL HCL 50 MG TAB ONE (13:43)
--- NOTE | 2018-10-13 15:14 | RAD REPORT ---
EXAM DESCRIPTION: RAD - Abdomen 1 View (KUB) - 10/13/2018 2:51 pm CLINICAL HISTORY: Icd n20.0 FINDINGS: The bowel gas pattern is unremarkable. The 2 right renal calculi have been fragmented. They lie along the proximal aspect of the right urete ral stent either within the right renal pelvis or proximal right ureter
== END 2018-10-13 14:45 | disposition home or self-care (01) ==
LOC: OR 08:53
PROVIDERS: ATTEND Urology
PROC: 0TFBXZZ Fragmentation in Bladder, External Approach (ICD-10-PCS; principal; 2018-10-13 11:00)
DX: N20.2 Calculus of kidney with calculus of ureter (principal); N39.0 Urinary tract infection, site not specified; M10.00 Idiopathic gout, unspecified site; Q62.39 Other obstructive defects of renal pelvis and ureter; E03.9 Hypothyroidism, unspecified; E78.00 Pure hypercholesterolemia, unspecified; I10 Essential (primary) hypertension; M19.90 Unspecified osteoarthritis, unspecified site; Z79.899 Other long term (current) drug therapy
CPT/HCPCS: 93005; 87088; 85025; 87086; 80048; 36415; 84100; 85610; 84550; 85730; 74018; 71046; 50590; J2704; J2710; J2250; J3010; J1580; 81003; 81015

== ENCOUNTER 2020-04-07 13:53 | Emergency (ER) | payer OTHER ==
[2020-04-07 14:38] LABS: Absolute Lymphocytes (CBC) 1.2 K/uL (0.7-4.9); Basophils % 0.5 % (0-1.3); Hematocrit 38.1 % (36.0-45.0); Lymphocytes % 19.1 % (15.3-44.8); MPV 7.7 fL (7.6-11.3); RBC Red Blood Cell Count 4.51 M/uL (3.86-4.86)
[2020-04-07 14:58] LABS: Albumin 3.7 g/dL (3.4-5.0); Bilirubin Direct 0.1 mg/dL (0-0.2); Bilirubin Total 0.4 mg/dL (0.2-1.0); Potassium 3.9 mmol/L (3.5-5.1); Protein, Total 9.6 g/dL (6.4-8.2)
[2020-04-07 14:58] LABS: Urine Blood NEGATIVE (NEG); Urine Glucose NEGATIVE (NEG); Urine Protein 2+ (NEG); Urine Specific Gravity 1.025 (1.005-1.030); Urine pH 5.5 (5.0-7.0)
[2020-04-07 16:10] LABS: Urine Bacteria >50 /HPF (<20); Urine Culture Reflex Order NOT NEEDED; Urine RBC <5 /HPF (NONE SEEN)
--- NOTE | 2020-04-07 16:15 | ER ---
Nurse's Notes [facility] Name: Navarro Baker Age: 60 yrs Sex: Female : 1960 Arrival Date: 04/07/2020 Time: 13:56 Bed 5 Private MD: Diagnosis: Urinary tract infection, site not specified Presentation: 04/07 14:07 Chief complaint: Patient states: pain with urination, urinary frequency and back pain aa5 that began 2 weeks ago. Pt denies cough, denies fever. Reports diarrhea and nausea. Denies vomiting. Reports fatigue and headaches. Ebola Screen: Patient negative for fever greater than or equal to 101.5 degrees Fahrenheit, and additional compatible Ebola Virus Disease symptoms. Initial Sepsis Screen: Does the patient meet any 2 criteria? No. Patient's initial sepsis screen is negative. Does the patient have a suspected source of infection? No. Patient's initial sepsis screen is negative. Risk Assessment: Do you want to hurt yourself or someone else? Patient reports no desire to harm self or others. Onset of symptoms was March 2020. 14:07 Acuity: ALEJANDRINA 3 aa5 14:07 Method Of Arrival: Wheelchair aa5 16:35 Coronavirus screen: At this time, the client does not indicate any symptoms associated tw2 with coronavirus-19. Historical: - Allergies: 14:11 No Known Allergies; aa5 - Home Meds: 14:11 levothyroxine oral 250mcg once daily [Active]; hydrocodone-acetaminophen 5-500 mg Oral aa5 tab [Active]; - PMHx: 14:11 Hypothyroidism; morbid obesity; aa5 - Immunization history:: Adult Immunizations unknown. - Social history:: Smoking status: Patient denies any tobacco usage or history of. Screenin:17 Abuse screen: Denies threats or abuse. Nutritional screening: No deficits noted. tw2 Tuberculosis screening: No symptoms or risk factors identified. Fall Risk Secondary diagnosis (15 points) impaired mobility. Assessment: 14:30 General: Appears in no apparent distress. Behavior is calm, cooperative. Pain: Pain hb currently is 3 out of 10 on a pain scale. Neuro: Level of Consciousness is awake, alert, obeys commands, Oriented to person, place, time, situation. Cardiovascular: Patient's skin is warm and dry. Respiratory: Respiratory effort is even, unlabored, Respiratory pattern is regular, symmetrical. GI: No signs and/or symptoms were reported involving the gastrointestinal system. : Reports burning with urination, urinary frequency. EENT: No signs and/or symptoms were reported regarding the EENT system. Derm: Skin is healthy with good turgor, Skin is dry, Skin is normal. Musculoskeletal: Reports low back pain. 15:30 Reassessment: Patient appears in no apparent distress at this time. hb 16:35 Reassessment: Patient appears in no apparent distress at this time. No changes from tw2 previously documented assessment. Patient and/or family updated on plan of care and expected duration. Pain level reassessed. Patient is alert, oriented x 3, equal unlabored respirations, skin warm/dry/pink. Vital Signs: 14:07 BP 132 / 71; Pulse 96; Resp 20 S; Temp 98.5; Pulse Ox 97% on R/A; aa5 14:24 Weight 213.64 kg (M); ss 15:03 BP 124 / 69; Pulse 92; Resp 20; Pulse Ox 99% on R/A; hb 16:15 BP 118 / 75; Pulse 87; Resp 17; Pulse Ox 99% on R/A; tw2 ED Course: 13:56 Patient arrived in ED. ds1 14:07 Arm band placed on. aa5 14:10 Triage completed. aa5 14:11 Bed in low position. Call light in reach. Pulse ox on. NIBP on. tw2 14:13 Yoandy Bae PA is PHCP. [facility] 14:13 Basil Henson MD is Attending Physician. [facility] 14:17 Emy Taylor, MIHAELA is Primary Nurse. tw2 14:35 Missed attempt(s): 22 gauge in left wrist. blood collected. Bleeding controlled, band tw2 aid applied, catheter tip intact. 14:40 Straight cath inserted, using sterile technique, 18 Fr. Returned jose urine. Patient tw2 tolerated well. Oumar Luna RN served as armhole presser and aided in positioning pt for the straight cath. 14:42 Inserted saline lock: 22 gauge in left forearm, using aseptic technique. hb 16:35 No provider procedures requiring assistance completed. IV discontinued, intact, tw2 bleeding controlled, No redness/swelling at site. Pressure dressing applied. Administered Medications: No medications were administered Outcome: 16:15 Discharge ordered by . diandra 16:35 Discharged to home via wheelchair. tw2 16:35 Condition: stable 16:35 Discharge instructions given to patient, Instructed on discharge instructions, follow up and referral plans. medication usage, Demonstrated understanding of instructions, follow-up care, medications, Prescriptions given X 1. 16:35 Patient left the ED. tw2 Signatures: Yoandy Bae PA PA jmm Sanford, Demi ds1 Marion Mathews RN RN aa5 Mei Holland RN RN Josy Quiros RN RN Emy Taylor RN RN tw2
--- NOTE | 2020-04-07 16:15 | EDPHYS ---
Physician Documentation [facility] Name: Navarro Baker Age: 60 yrs Sex: Female : 1960 Arrival Date: 04/07/2020 Time: 13:56 Bed 5 Private MD: ED Physician Basil Henson HPI: 04/07 14:20 This 60 yrs old Black Female presents to ER via Wheelchair with complaints of Back jmm Pain, Urinary Frequency. 14:20 The patient presents with pain that is chronic, with no known mechanism of injury. jmm Onset: The symptoms/episode began/occurred gradually, 2 week(s) ago. The pain does not radiate. Associated signs and symptoms: Pertinent positives: vomiting, Pertinent negatives: dysuria, fever, incontinence. 16:11 Patient complains of lower back pain with one episode of vomiting. Denies diarrhea. jmm Denies flank pain. . Historical: - Allergies: 14:11 No Known Allergies; aa5 - Home Meds: 14:11 levothyroxine oral 250mcg once daily [Active]; hydrocodone-acetaminophen 5-500 mg Oral aa5 tab [Active]; - PMHx: 14:11 Hypothyroidism; morbid obesity; aa5 - Immunization history:: Adult Immunizations unknown. - Social history:: Smoking status: Patient denies any tobacco usage or history of. ROS: 16:11 Constitutional: Negative for fever, chills, and weight loss, Cardiovascular: Negative jmm for chest pain, palpitations, and edema, Respiratory: Negative for shortness of breath, cough, wheezing, and pleuritic chest pain, Abdomen/GI: Negative for abdominal pain, nausea, vomiting, diarrhea, and constipation. 16:11 Back: Positive for pain with movement. 16:11 All other systems are negative. Exam: 16:11 Constitutional: This is a well developed, well nourished patient who is awake, alert, jmm and in no acute distress. Head/Face: atraumatic. Eyes: EOMI, no conjunctival erythema appreciated ENT: Moist Mucus Membranes Neck: Trachea midline, Supple Chest/axilla: Normal chest wall appearance and motion. Cardiovascular: Regular rate and rhythm. No edema appreciated Respiratory: Normal respirations, no respiratory distress appreciated Abdomen/GI: Non distended, soft 16:11 Back: pain, that is mild, of the left low back and right low back. 16:11 Neuro: Orientation: is normal, Mentation: is normal, Memory: is normal, Gait: is steady, with walker. 16:11 Psych: Behavior/mood is pleasant, cooperative. Vital Signs: 14:07 BP 132 / 71; Pulse 96; Resp 20 S; Temp 98.5; Pulse Ox 97% on R/A; aa5 14:24 Weight 213.64 kg (M); ss 15:03 BP 124 / 69; Pulse 92; Resp 20; Pulse Ox 99% on R/A; hb 16:15 BP 118 / 75; Pulse 87; Resp 17; Pulse Ox 99% on R/A; tw2 MDM: 14:30 Patient medically screened. delaney 16:14 Data reviewed: vital signs, nurses notes. Counseling: I had a detailed discussion with diandra the patient and/or guardian regarding: the historical points, exam findings, and any diagnostic results supporting the discharge/admit diagnosis, lab results, the need for outpatient follow up, to return to the emergency department if symptoms worsen or persist or if there are any questions or concerns that arise at home. ED course: Patient is alert and non toxic in appearance in the ED. Patient is advised to follow up with pcp and otherwise given strict return precautions. Patient understood and agrees with the plan of care. . 04/07 14:20 Order name: Basic Metabolic Panel; Complete Time: 15:[address] [facility] 04/07 14:20 Order name: CBC with Diff; Complete Time: 14:[address] [facility] 04/07 14:20 Order name: Hepatic Function; Complete Time: 15:[address] [facility] 04/07 14:20 Order name: Lipase; Complete Time: 15:[address] [facility] 04/07 14:20 Order name: Urine Microscopic Only; Complete Time: 16:[address] [facility] 04/07 14:52 Order name: Urine Dipstick--Ancillary (enter results); Complete Time: 14:59 04/07 14:20 Order name: IV Saline Lock; Complete Time: 14:[address] [facility] 04/07 14:20 Order name: Labs collected and sent; Complete Time: 14:[address] [facility] 04/07 14:20 Order name: Urine Dipstick-Ancillary (obtain specimen); Complete Time: 14:[address] [facility] 04/07 15:09 Order name: Urine Culture [facility] Administered Medications: No medications were administered Disposition: 17:40 Co-signature as Attending Physician, Basil Henson MD I agree with the assessment and kdr plan of care. Disposition: 04/07/20 16:15 Discharged to Home. Impression: Urinary tract infection, site not specified. - Condition is Stable. - Discharge Instructions: Urinary Tract Infection, Adult. - Prescriptions for Augmentin 875- 125 mg Oral Tablet - take 1 tablet by ORAL route every 12 hours for 10 days; 20 tablet. - Medication Reconciliation Form, Thank You Letter, Antibiotic Education, Prescription Opioid Use form. - Follow up: Private Physician; When: 2 - 3 days; Reason: Recheck today's complaints, Continuance of care, Re-evaluation by your physician. Signatures: Dispatcher [employer] [facility] Basil Henson MD MD kdr Mickail, Joel, PA PA [facility] Marion Mathews, RN RN aa5 Emy Taylor RN RN tw2 Corrections: (The following items were deleted from the chart) 15:36 14:52 Stone Protocol+CT.RAD.BRZ ordered. [facility] 16:12 14:20 Associated signs and symptoms: Pertinent positives: vomiting, Pertinent [facility] negatives: dysuria, fever, incontinence, jm 16:35 16:15 04/07/2020 16:15 Discharged to Home. Impression: Urinary tract infection, site tw2 not specified. Condition is Stable. Forms are Medication Reconciliation Form, Thank You Letter, Antibiotic Education, Prescription Opioid Use. Follow up: Private Physician; When: 2 - 3 days; Reason: Recheck today's complaints, Continuance of care, Re-evaluation by your physician. [facility]
[2020-04-11 13:56] VITALS: TEMP 98.5
[2020-04-11 13:57] VITALS: O2SAT 99
[2020-04-11 13:59] VITALS: BP 118/75
== END 2020-04-07 16:35 | disposition home or self-care (01) ==
LOC: ER 13:53
DX: N39.0 Urinary tract infection, site not specified (principal); E03.9 Hypothyroidism, unspecified
CPT/HCPCS: 36415; 51702; 80048; 80076; 81003; 81015; 83690; 85025; 87077; 87086; 87088; 87186; 99283

== ENCOUNTER → 2023-08-20 | Emergency (ER) | payer OTHER ==
[~2023-08-20] MED LIST: FLEET ENEMA ADULT PR ONE
--- OUTSIDE RECORDS SUMMARY | 2023-08-20 20:11 | XMS REPORT | Continuity of Care Document ---
Author Name Unknown Address [address] [place] [address] [facility] thconnect Address 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 Role Phone Sofía Newton MD Primary Care Physician [phone] MAURICIO PHILLIPS Attending Clinician Unavailable MAURICIO PHILLIPS Attending Clinician Unavailable TIMOTHY JOY Attending Clinician Unavailab SOFÍA Vasquez Attending Clinician Unavailable Pcp-Lab Attending Clinician Unavailable Timothy Joy DO Attending Clinician [phone] Frankie Barrientos MD Attending Clinician [phone] FRANKIE BARRIENTOS Attending Clinician Unavail able FRANKIE BARRIENTOS Attending Clinician Unavail able Sofía Newton MD Attending Clinician [phone] Lab, Ang - Db Attending Clinician Unavailable Doctor Unassigned, Seis Lagos Attending Clinician U navailable ANSANTOS JEAN-BAPTISTE Attending Clinician Unavailable SANTOS FRANCO Attending Clinician Unavailable Rasta Martinez Attending Clinician [phone] Jian Castillo MD Attending Clinician + [phone] JIAN CASTILLO Attending Clinician Unavailtone Coello RN, Divina Mai Attending Clinician Unavailab EILEEN Regalado Attending Clinician Unavailable Rosalino Carcamo MD Attending Clinician [phone] Eileen Franks MD Attending Clinician [phone] RASTA BELTRAN Attending Clinician Unavailable Nurse, Ang Endo/Diab Attending Clinician Unavail able Verena FRANKLIN, Basil Adair Attending Clinician [phone] BASIL FLORES Attending Clinician Unavailtone Pinkb, Adc Lab Main Attending Clinician UnavailENEIDA Brooks Attending Clinician Unavailable JACQUELINE MAURICIO Admitting Clinician Unavailable SOFAÍ NEWTON Admitting Clinician Unavailable Lamar FRANKLIN, Sofía Admitting Clinician [phone] EILEEN FRANKS Admitting Clinician Unavailable Eileen Franks MD Admitting Clinician [phone] Payers Payer Name Policy Type Policy Number Effective Date Expirati on Date Source MEDICARE PART A \\T\\ [id number] 1994 00:00:00 [place]ICAID [place] [id number] 2018 00:00:00 Problems Condition Name Condition Details Condition Category Status Onset Date Resolution Date Last Treatment Date Treating Clinician Comments Source Speech disturbanc e, unspecifie d type Speech disturbanc e, unspecifie d type Disease Active 01-08 00:00: 00 [facility] JEANNE (acute kidney injury) JEANNE (acute kidney injury) Disease Active 01-08 00:00: 00 [facility] CKD (chronic kidney disease) stage 3, GFR 30-59 ml/min CKD (chronic kidney disease) stage 3, GFR 30-59 ml/min Disease Active 01-08 00:00: 00 [facility] TIA (transient ischemic attack) TIA (transient ischemic attack) Disease Active 01-08 00:00: 00 [facility] Acquired hypothyroi dism Acquired hypothyroi dism Disease Active 2020-08 00:00: 00 [facility] Morbid obesity Morbid obesity Disease Active 2020-08 00:00: 00 [facility] Allergies, Adverse Reactions, Alerts Allergy Name Allergy Type Status Severity Reaction(s) Onset Date Inactive Date Treating Clinician Comments Source NO KNOWN ALLERGIE S Drug Class Active [facility] Social History Social Habit Start Date Stop Date Quantity Comments Source History SDOH Alcohol Std Drinks [facility] History SDOH Alcohol Binge [facility] History SDOH Housing Places Lived [facility] Gender identity [facility] Alcohol intake 2023-08-19 00:00:00 2023-08-19 00:00:00 Current drinker of alcohol (finding) [facility] Alcohol Comment 2023-08-19 00:00:00 2023-08-19 00:00:00 rare [facility] Tobacco use and exposure 2023-06-17 00:00:00 2023-06-17 00:00:00 Smokeless tobacco non-user [facility] History of Social function 2023-06-17 00:00:00 2023-06-17 00:00:00 [facility] History SDOH Alcohol Frequency 2023-01-08 00:00:00 2023-01-08 00:00:00 1 [facility] History SDOH Transport Med 2023-01-08 00:00:00 2023-01-08 00:00:00 2 [facility] History SDOH Transport Non-Med 2023-01-08 00:00:00 2023-01-08 00:00:00 2 [facility] History SDOH Housing Unable to Pay 2023-01-08 00:00:00 2023-01-08 00:00:00 3 [facility] History SDOH Housing Homeless Last Year 2023-01-08 00:00:00 2023-01-08 00:00:00 3 [facility] Exposure to SARS-CoV-2 (event) 2022-12-29 00:00:00 2023-01-08 00:00:00 Not sure [facility] Sex Assigned At 1960 00:00:00 1960 00:00:00 [facility] Smoking Status Start Date Stop Date Source Never smoked tobacco [facility] Medications Ordered Medication Name Filled Medication Name Start Date Stop Date Current Medication? Ordering Clinician Indication Dosage Frequency Signature (SIG) Comments Components Source ramipriL 2.5 mg capsule 08-19 14:30: 30 Yes 2.5mg Take 1 capsule by mouth in the morning. EVERY NIGHT [facility] ramipriL 2.5 mg capsule 2024-0 08-19 14:30: 30 Yes 2.5mg Take 1 capsule by mouth in the morning. EVERY NIGHT [facility] ramipriL 2.5 mg capsule 2024-0 08-19 14:30: 30 Yes 2.5mg Take 1 capsule by mouth in the morning. EVERY NIGHT [facility] ramipriL 2.5 mg capsule 2024-0 08-19 14:30: 30 Yes 2.5mg Take 1 capsule by mouth in the morning. EVERY NIGHT [facility] ramipriL 2.5 mg capsule 2024-0 08-19 14:30: 30 Yes 2.5mg Take 1 capsule by mouth in the morning. EVERY NIGHT [facility] ramipriL 2.5 mg capsule 2024-0 08-19 14:30: 30 Yes 2.5mg Take 1 capsule by mouth in the morning. EVERY NIGHT [facility] ramipriL 2.5 mg capsule 2024-0 08-19 14:30: 30 Yes 2.5mg Take 1 capsule by mouth in the morning. EVERY NIGHT [facility] ramipriL 2.5 mg capsule 4-0 08-19 14:30: 30 Yes 2.5mg Take 1 capsule by mouth in the morning. EVERY NIGHT [facility] ramipriL 2.5 mg capsule 2024-0 08-19 14:30: 30 Yes 2.5mg Take 1 capsule by mouth in the morning. EVERY NIGHT [facility] Magnesium Oxide 500 mg Tab 40 08-19 14:30: 25 08-19 00:00 :00 No 500mg Take 500 mg by mouth as needed for Constipati on. [facility] Magnesium Oxide 500 mg Tab 4-0 08-19 14:30: 08-19 00:00 :00 No 500mg Take 500 mg by mouth as needed for Constipati on. [facility] Magnesium Oxide 500 mg Tab 4-0 08-19 14:30: 25 08-19 00:00 :00 No 500mg Take 500 mg by mouth as needed for Constipati on. [facility] Magnesium Oxide 500 mg Tab 08-19 14:30: 25 08-19 00:00 :00 No 500mg Take 500 mg by mouth as needed for Constipati on. [facility] Magnesium Oxide 500 mg Tab 08-19 14:30: 25 08-19 00:00 :00 No 500mg Take 500 mg by mouth as needed for Constipati on. [facility] simvastatin 40 mg tablet 2022-08 12:17: 28 Yes TAKE 1 TABLET BY MOUTH EVERY NIGHT [facility] simvastatin 40 mg tablet 2022-08 12:17: 28 Yes TAKE 1 TABLET BY MOUTH EVERY NIGHT [facility] simvastatin 40 mg tablet 2022-08 12:17: 28 Yes TAKE 1 TABLET BY MOUTH EVERY NIGHT [facility] simvastatin 40 mg tablet 2022-08 12:17: 28 Yes TAKE 1 TABLET BY MOUTH EVERY NIGHT [facility] simvastatin 40 mg tablet 2022-08 12:17: 28 Yes TAKE 1 TABLET BY MOUTH EVERY NIGHT [facility] simvastatin 40 mg tablet 2022-08 12:17: 28 Yes TAKE 1 TABLET BY MOUTH EVERY NIGHT [facility] simvastatin 40 mg tablet 2022-08 12:17: 28 Yes TAKE 1 TABLET BY MOUTH EVERY NIGHT [facility] simvastatin 40 mg tablet 2022-08 12:17: 28 Yes TAKE 1 TABLET BY MOUTH EVERY NIGHT [facility] simvastatin 40 mg tablet 2022-08 2 12:17: 28 Yes TAKE 1 TABLET BY MOUTH EVERY NIGHT [facility] simvastatin 40 mg tablet 2022-08 12:17: 28 Yes TAKE 1 TABLET BY MOUTH EVERY NIGHT [facility] simvastatin 40 mg tablet 2022-08 2 12:17: 28 Yes TAKE 1 TABLET BY MOUTH EVERY NIGHT [facility] simvastatin 40 mg tablet 2022-08 2 12:17: 28 Yes TAKE 1 TABLET BY MOUTH EVERY NIGHT [facility] simvastatin 40 mg tablet 2022-08 2- 12:17: 28 Yes TAKE 1 TABLET BY MOUTH EVERY NIGHT [facility] ramipriL 2.5 mg capsule 2022-08 12:16: 32 Yes 2.5mg Take 1 capsule by mouth in the morning. EVERY NIGHT [facility] Magnesium Oxide 500 mg Tab 2022-08 12:16: 32 Yes 500mg Take 500 mg by mouth as needed for Constipati on. [facility] ramipriL 2.5 mg capsule 2022-08 12:16: 32 Yes 2.5mg Take 1 capsule by mouth in the morning. EVERY NIGHT [facility] Magnesium Oxide 500 mg Tab 2022-08 12:16: 32 Yes 500mg Take 500 mg by mouth as needed for Constipati on. [facility] ramipriL 2.5 mg capsule 2022-08 12:16: 32 Yes 2.5mg Take 1 capsule by mouth in the morning. EVERY NIGHT [facility] Magnesium Oxide 500 mg Tab 2022-08 12:16: 32 Yes 500mg Take 500 mg by mouth as needed for Constipati on. [facility] ramipriL 2.5 mg capsule 2022-08 12:16: 32 Yes 2.5mg Take 1 capsule by mouth in the morning. EVERY NIGHT [facility] Magn[facility] Ox[facility] 500 mg Tab 2022-08 12:16: 32 Yes 500mg Take 500 mg by mouth as needed for Constipati on. [facility] ramipriL 2.5 mg capsule 2022-08 12:16: 32 Yes 2.5mg Take 1 capsule by mouth in the morning. EVERY NIGHT [facility] Magnesium Oxide 500 mg Tab 2022-08 12:16: 32 Yes 500mg Take 500 mg by mouth as needed for Constipati on. [facility] ramipriL 2.5 mg capsule 2022-08 12:16: 32 Yes 2.5mg Take 1 capsule by mouth in the morning. EVERY NIGHT [facility] Magnesium Oxide 500 mg Tab 2022-08 12:16: 32 Yes 500mg Take 500 mg by mouth as needed for Constipati on. [facility] amLODIPine 2.5 mg tablet 2022-08 00:00: 00 Yes TAKE ONE TABLET BY MOUTH ONCE EVERY NIGHT [facility] amLODIPine 2.5 mg tablet 2022-08 00:00: 00 Yes TAKE ONE TABLET BY MOUTH ONCE EVERY NIGHT [facility] amLODIPine 2.5 mg tablet 2022-08 00:00: 00 Yes TAKE ONE TABLET BY MOUTH ONCE EVERY NIGHT [facility] amLODIPine 2.5 mg tablet 2022-08 00:00: 00 Yes TAKE ONE TABLET BY MOUTH ONCE EVERY NIGHT [facility] amLODIPine 2.5 mg tablet 2022-08 00:00: 00 Yes TAKE ONE TABLET BY MOUTH ONCE EVERY NIGHT [facility] amLODIPine 2.5 mg tablet 2022-08 00:00: 00 Yes TAKE ONE TABLET BY MOUTH ONCE EVERY NIGHT [facility] amLODIPine 2.5 mg tablet 2022-08 00:00: 00 Yes TAKE ONE TABLET BY MOUTH ONCE EVERY NIGHT [facility] amLODIPine 2.5 mg tablet 2022-08 00:00: 00 Yes TAKE ONE TABLET BY MOUTH ONCE EVERY NIGHT [facility] amLODIPine 2.5 mg tablet 2022-08 00:00: 00 Yes TAKE ONE TABLET BY MOUTH ONCE EVERY NIGHT [facility] amLODIPine 2.5 mg tablet 2022-08 00:00: 00 Yes TAKE ONE TABLET BY MOUTH ONCE EVERY NIGHT [facility] amLODIPine 2.5 mg tablet 2022-08 00:00: 00 Yes TAKE ONE TABLET BY MOUTH ONCE EVERY NIGHT [facility] amLODIPine 2.5 mg tablet 2022-08 00:00: 00 Yes TAKE ONE TABLET BY MOUTH ONCE EVERY NIGHT [facility] amLODIPine 2.5 mg tablet 2022-08 00:00: 00 Yes TAKE ONE TABLET BY MOUTH ONCE EVERY NIGHT [facility] aspirin E.C. 325 mg EC tablet 02-03 00:00: 00 Yes 325mg Take 1 tablet by mouth. [facility] aspirin E.C. 325 mg EC tablet 02-03 00:00: 00 Yes 325mg Take 1 tablet by mouth. [facility] aspirin E.C. 325 mg EC tablet 02-03 00:00: 00 Yes 325mg Take 1 tablet by mouth. [facility] aspirin E.C. 325 mg EC tablet 02-03 00:00: 00 Yes 325mg Take 1 tablet by mouth. [facility] aspirin E.C. 325 mg EC tablet 02-03 00:00: 00 Yes 325mg Take 1 tablet by mouth. [facility] aspirin E.C. 325 mg EC tablet 02-03 00:00: 00 Yes 325mg Take 1 tablet by mouth. [facility] aspirin E.C. 325 mg EC tablet 02-03 00:00: 00 Yes 325mg Take 1 tablet by mouth. [facility] aspirin E.C. 325 mg EC tablet 02-03 00:00: 00 Yes 325mg Take 1 tablet by mouth. [facility] aspirin E.C. 325 mg EC tablet 02-03 00:00: 00 Yes 325mg Take 1 tablet by mouth. [facility] aspirin E.C. 325 mg EC tablet 02-03 00:00: 00 Yes 325mg Take 1 tablet by mouth. [facility] aspirin E.C. 325 mg EC tablet 02-03 00:00: 00 Yes 325mg Take 1 tablet by mouth. [facility] aspirin E.C. 325 mg EC tablet 02-03 00:00: 00 Yes 325mg Take 1 tablet by mouth. [facility] aspirin E.C. 325 mg EC tablet 02-03 00:00: 00 Yes 325mg Take 1 tablet by mouth. [facility] methylPREDN ISolone (MEDROL, JADE,) 4 mg tablets 01-23 00:00: 00 Yes [id number] 84mg Take 21 tablets by mouth SEE-INSTRU CTIONS. follow package directions [facility] methylPREDN ISolone (MEDROL, JADE,) 4 mg tablets 0 15 00:00: 00 Yes [id number] 84mg Take 21 tablets by mouth SEE-INSTRU CTIONS. follow package directions [facility] methylPREDN ISolone (MEDROL, JADE,) 4 mg tablets 0 15 00:00: 00 Yes [id number] 84mg Take 21 tablets by mouth SEE-INSTRU CTIONS. follow package directions [facility] methylPREDN ISolone (MEDROL, JADE,) 4 mg tablets 15 00:00: 00 Yes [id number] 84mg Take 21 tablets by mouth SEE-INSTRU CTIONS. follow package directions [facility] methylPREDN ISolone (MEDROL, JADE,) 4 mg tablets 01-23 00:00: 00 Yes [id number] 84mg Take 21 tablets by mouth SEE-INSTRU CTIONS. follow package directions [facility] methylPREDN ISolone (MEDROL, JADE,) 4 mg tablets 01-23 00:00: 00 Yes [id number] 84mg Take 21 tablets by mouth SEE-INSTRU CTIONS. follow package directions [facility] methylPREDN ISolone (MEDROL, JADE,) 4 mg tablets 0 15 00:00: 00 Yes [id number] 84mg Take 21 tablets by mouth SEE-INSTRU CTIONS. follow package directions [facility] methylPREDN ISolone (MEDROL, JADE,) 4 mg tablets 0 15 00:00: 00 Yes [id number] 84mg Take 21 tablets by mouth SEE-INSTRU CTIONS. follow package directions [facility] methylPREDN ISolone (MEDROL, JADE,) 4 mg tablets 0 15 00:00: 00 Yes [id number] 84mg Take 21 tablets by mouth SEE-INSTRU CTIONS. follow package directions [facility] methylPREDN ISolone (MEDROL, JADE,) 4 mg tablets 0 15 00:00: 00 Yes [id number] 84mg Take 21 tablets by mouth SEE-INSTRU CTIONS. follow package directions [facility] methylPREDN ISolone (MEDROL, JADE,) 4 mg tablets 01-23 00:00: 00 Yes [id number] 84mg Take 21 tablets by mouth SEE-INSTRU CTIONS. follow package directions [facility] methylPREDN ISolone (MEDROL, JADE,) 4 mg tablets 01-23 00:00: 00 Yes [id number] 84mg Take 21 tablets by mouth SEE-INSTRU CTIONS. follow package directions [facility] methylPREDN ISolone (MEDROL, JADE,) 4 mg tablets 01-23 00:00: 00 Yes [id number] 84mg Take 21 tablets by mouth SEE-INSTRU CTIONS. follow package directions [facility] methylPREDN ISolone (MEDROL, JADE,) 4 mg tablets 01-23 00:00: 00 Yes [id number] 84mg Take 21 tablets by mouth SEE-INSTRU CTIONS. follow package directions [facility] methylPREDN ISolone (MEDROL, JADE,) 4 mg tablets 01-23 00:00: 00 08-19 00:00 :00 No [id number] 84mg Take 21 tablets by mouth SEE-INSTRU CTIONS. follow package directions [facility] methylPREDN ISolone (MEDROL, JADE,) 4 mg tablets 01-23 00:00: 00 08-19 00:00 :00 No [id number] 84mg Take 21 tablets by mouth SEE-INSTRU CTIONS. follow package directions [facility] methylPREDN ISolone (MEDROL, JADE,) 4 mg tablets 01-23 00:00: 00 08-19 00:00 :00 No [id number] 84mg Take 21 tablets by mouth SEE-INSTRU CTIONS. follow package directions [facility] methylPREDN ISolone (MEDROL, JADE,) 4 mg tablets 01-23 00:00: 00 08-19 00:00 :00 No [id number] 84mg Take 21 tablets by mouth SEE-INSTRU CTIONS. follow package directions [facility] methylPREDN ISolone (MEDROL, JADE,) 4 mg tablets 15 00:00: 00 08-19 00:00 :00 No [id number] 84mg Take 21 tablets by mouth SEE-INSTRU CTIONS. follow package directions [facility] aspirin 325 mg tablet 01-11 00:00: 00 02-11 04:59 :00 No [id number] 325mg Take 1 tablet by mouth in the morning for 30 days. [facility] aspirin 325 mg tablet 01-11 00:00: 00 02-11 04:59 :00 No [id number] 325mg Take 1 tablet by mouth in the morning for 30 days. [facility] aspirin 325 mg tablet 01-11 00:00: 00 02-11 04:59 :00 No [id number] 325mg Take 1 tablet by mouth in the morning for 30 days. [facility] aspirin 325 mg tablet 01-11 00:00: 00 02-11 04:59 :00 No [id number] 325mg Take 1 tablet by mouth in the morning for 30 days. [facility] aspirin 325 mg tablet 01-11 00:00: 00 02-11 04:59 :00 No [id number] 325mg Take 1 tablet by mouth in the morning for 30 days. [facility] aspirin 325 mg tablet 01-11 00:00: 00 02-11 04:59 :00 No [id number] 325mg Take 1 tablet by mouth in the morning for 30 days. [facility] aspirin 325 mg tablet 01-11 00:00: 00 02-11 04:59 :00 No [id number] 325mg Take 1 tablet by mouth in the morning for 30 days. [facility] ramipriL 2.5 mg capsule 01-10 15:28: 58 Yes 2.5mg Take 1 capsule by mouth in the morning. EVERY NIGHT [facility] Magnesium Oxide 500 mg Tab 01-10 15:28: 58 Yes 500mg Take 500 mg by mouth as needed for Constipati on. [facility] ramipriL 2.5 mg capsule 3-0 01-10 15:28: 58 Yes 2.5mg Take 1 capsule by mouth in the morning. EVERY NIGHT [facility] Magnesium Oxide 500 mg Tab 3-0 01-10 15:28: 58 Yes 500mg Take 500 mg by mouth as needed for Constipati on. [facility] 2.5 mg capsule 3-0 01-10 15:28: 58 Yes 2.5mg Take 1 capsule by mouth in the morning. EVERY NIGHT [facility] Magnesium Oxide 500 mg Tab 3-0 01-10 15:28: 58 Yes 500mg Take 500 mg by mouth as needed for Constipati on. [facility] ramipriL 2.5 mg capsule 2022-0 01-10 15:28: 58 Yes 2.5mg Take 1 capsule by mouth in the morning. EVERY NIGHT [facility] Magnesium Oxide 500 mg Tab 2022-0 01-10 15:28: 58 Yes 500mg Take 500 mg by mouth as needed for Constipati on. [facility] ramipriL 2.5 mg capsule 2022-0 01-10 15:28: 58 Yes 2.5mg Take 1 capsule by mouth in the morning. EVERY NIGHT [facility] Magnesium Oxide 500 mg Tab 2022-0 01-10 15:28: 58 Yes 500mg Take 500 mg by mouth as needed for Constipati on. [facility] ramipriL 2.5 mg capsule 2022-0 01-10 15:28: 58 Yes 2.5mg Take 1 capsule by mouth in the morning. EVERY NIGHT [facility] Magnesium Oxide 500 mg Tab 3-0 01-10 15:28: 58 Yes 500mg Take 500 mg by mouth as needed for Constipati on. [facility] ramipriL 2.5 mg capsule 3-0 01-10 15:28: 58 Yes 2.5mg Take 1 capsule by mouth in the morning. EVERY NIGHT [facility] Magnesium Oxide 500 mg Tab 3-0 01-10 15:28: 58 Yes 500mg Take 500 mg by mouth as needed for Constipati on. [facility] ramipriL 2.5 mg capsule 2023-0 01-10 15:28: 58 Yes 2.5mg Take 1 capsule by mouth in the morning. EVERY NIGHT [facility] Magnesium Oxide 500 mg Tab 3-0 01-10 15:28: 58 Yes 500mg Take 500 mg by mouth as needed for Constipati on. [facility] ramipriL 2.5 mg capsule 3-0 01-10 15:28: 58 Yes 2.5mg Take 1 capsule by mouth in the morning. EVERY NIGHT [facility] Magnesium Oxide 500 mg Tab 3-0 01-10 15:28: 58 Yes 500mg Take 500 mg by mouth as needed for Constipati on. [facility] ramipriL 2.5 mg capsule 2022-0 01-10 15:28: 58 Yes 2.5mg Take 1 capsule by mouth in the morning. EVERY NIGHT [facility] Magnesium Oxide 500 mg Tab 2022-0 01-10 15:28: 58 Yes 500mg Take 500 mg by mouth as needed for Constipati on. [facility] ramipriL 2.5 mg capsule 2022-0 01-10 15:28: 58 Yes 2.5mg Take 1 capsule by mouth in the morning. EVERY NIGHT [facility] Magnesium Oxide 500 mg Tab 2022-0 01-10 15:28: 58 Yes 500mg Take 500 mg by mouth as needed for Constipati on. [facility] ramipriL 2.5 mg capsule 2022-0 01-10 15:28: 58 Yes 2.5mg Take 1 capsule by mouth in the morning. EVERY NIGHT [facility] Magnesium Oxide 500 mg Tab 3-0 01-10 15:28: 58 Yes 500mg Take 500 mg by mouth as needed for Constipati on. [facility] ramipriL 2.5 mg capsule 3-0 01-10 15:28: 58 Yes 2.5mg Take 1 capsule by mouth in the morning. EVERY NIGHT [facility] Magnesium Oxide 500 mg Tab 3-0 01-10 15:28: 58 Yes 500mg Take 500 mg by mouth as needed for Constipati on. [facility] levothyroxi ne (SYNTHROID) tablet 112 mcg 01-10 11:00: 00 Yes 112ug 112 mcg, Oral, QAM-0600, First dose (after last modificati on) on Fri01/10/23 at 0600, Until Discontinu ed, Routine [facility] atorvastati n 40 mg tablet 01-10 00:00: 00 02-10 04:59 :00 No [id number] 40mg Take 1 tablet by mouth at bedtime for 30 days. [facility] atorvastati n 40 mg tablet 01-10 00:00: 00 02-10 04:59 :00 No [id number] 40mg Take 1 tablet by mouth at bedtime for 30 days. [facility] atorvastati n 40 mg tablet 01-10 00:00: 00 02-10 04:59 :00 No [id number] 40mg Take 1 tablet by mouth at bedtime for 30 days. [facility] atorvastati n 40 mg tablet 01-10 00:00: 00 02-10 04:59 :00 No [id number] 40mg Take 1 tablet by mouth at bedtime for 30 days. [facility] atorvastati n 40 mg tablet 01-10 00:00: 00 02-10 04:59 :00 No [id number] 40mg Take 1 tablet by mouth at bedtime for 30 days. [facility] atorvastati n 40 mg tablet 01-10 00:00: 00 02-10 04:59 :00 No [id number] 40mg Take 1 tablet by mouth at bedtime for 30 days. [facility] atorvastati n 40 mg tablet 01-10 00:00: 00 02-10 04:59 :00 No [id number] 40mg Take 1 tablet by mouth at bedtime for 30 days. [facility] aspirin tablet 325 mg 01-09 14:00: 00 Yes 325mg 325 mg, Oral, DAILY, First dose on Fri01/09/23 at 0900, Until Discontinu ed, Routine [facility] docusate (COLACE) capsule 100 mg 01-09 14:00: 00 Yes 100mg 100 mg, Oral, DAILY, First dose on Fri01/09/23 at 0900, Until Discontinu ed, Routine [facility] ergocalcife rol (vitamin d2) (CALCIFEROL ) capsule 50,000 Units 01-09 14:00: 00 Yes [id number] 50,000 Units, Oral, QWEEKLY, First dose on Fri01/09/23 at 0900, Until Discontinu ed, Routine [facility] levothyroxi ne (SYNTHROID) tablet 112 mcg 01-09 14:00: 00 01-10 10:30 :43 No 112ug 112 mcg, Oral, QAM, First dose on Fri01/09/23 at 0900, Until Discontinu ed, Routine [facility] heparin (porcine) injection 5,000 Units 01-09 01:00: 00 Yes 5000U 5,000 Units, Subcutaneo us, Q12H, First dose on Fri01/08/23 at 2000, Until Discontinu ed, Routine [facility] glucagon (GLUCAGEN DIAGNOSTIC KIT) injection 1 mg 01-08 20:54: 36 Yes 1mg 1 mg, Intramuscu lar, PRN, Starting on Fri01/08/23 at 1554, Until Discontinu ed, Routine, hypogycemi ablood sugar<70 [facility] ondansetron (ZOFRAN (PF)) injection 4 mg 01-08 15:34: 00 Yes 4mg 4 mg, Slow IV Push, Q6HPRN, Starting on Fri01/08/23 at 1034, Until Discontinu ed, Routine, Nausea and Vomiting (N/V) [facility] HYDROcodone -acetaminop hen (NORCO) 10-325 mg tablet 1 tablet 01-08 15:33: 47 Yes 1{tbl} 1 tablet, Oral, Q6HPRN, Starting on Fri01/08/23 at 1033, Until Discontinu ed, Routine, Pain (scale 7-10) [facility] acetaminoph en (TYLENOL) tablet 650 mg 01-08 15:33: 34 Yes 650mg 650 mg, Oral, Q6HPRN, Starting on Fri01/08/23 at 1033, Until Discontinu ed, Routine, Pain (scale 1-3) [facility] levothyroxi ne 112 mcg tablet 12-10 00:00: 00 Yes [id number] 112ug Take 1 tablet by mouth every morning. [facility] ergocalcife rol, vitamin d2, 1,250 mcg (50,000 unit) capsule 12-10 00:00: 00 Yes [id number] Take 1 capsule by mouth weekly. [facility] levothyroxi ne 112 mcg tablet 12-10 00:00: 00 Yes [id number] 112ug Take 1 tablet by mouth every morning. [facility] ergocalcife rol, vitamin d2, 1,250 mcg (50,000 unit) capsule 12-10 00:00: 00 Yes [id number] Take 1 capsule by mouth weekly. [facility] levothyroxi ne 112 mcg tablet 12-10 00:00: 00 Yes [id number] 112ug Take 1 tablet by mouth every morning. [facility] ergocalcife rol, vitamin d2, 1,250 mcg (50,000 unit) capsule 12-10 00:00: 00 Yes [id number] Take 1 capsule by mouth weekly. [facility] levothyroxi ne 112 mcg tablet 12-10 00:00: 00 Yes [id number] 112ug Take 1 tablet by mouth every morning. [facility] ergocalcife rol, vitamin d2, 1,250 mcg (50,000 unit) capsule 12-10 00:00: 00 Yes [id number] Take 1 capsule by mouth weekly. [facility] levothyroxi ne 112 mcg tablet 12-10 00:00: 00 Yes [id number] 112ug Take 1 tablet by mouth every morning. [facility] ergocalcife rol, vitamin d2, 1,250 mcg (50,000 unit) capsule 12-10 00:00: 00 Yes [id number] Take 1 capsule by mouth weekly. [facility] levothyroxi ne 112 mcg tablet 12-10 00:00: 00 Yes [id number] 112ug Take 1 tablet by mouth every morning. [facility] ergocalcife rol, vitamin d2, 1,250 mcg (50,000 unit) capsule 12-10 00:00: 00 Yes [id number] Take 1 capsule by mouth weekly. [facility] levothyroxi ne 112 mcg tablet 12-10 00:00: 00 Yes [id number] 112ug Take 1 tablet by mouth every morning. [facility] ergocalcife rol, vitamin d2, 1,250 mcg (50,000 unit) capsule 12-10 00:00: 00 Yes [id number] Take 1 capsule by mouth weekly. [facility] levothyroxi ne 112 mcg tablet 12-10 00:00: 00 Yes [id number] 112ug Take 1 tablet by mouth every morning. [facility] ergocalcife rol, vitamin d2, 1,250 mcg (50,000 unit) capsule 12-10 00:00: 00 Yes [id number] Take 1 capsule by mouth weekly. [facility] levothyroxi ne 112 mcg tablet 12-10 00:00: 00 Yes [id number] 112ug Take 1 tablet by mouth every morning. [facility] ergocalcife rol, vitamin d2, 1,250 mcg (50,000 unit) capsule 12-10 00:00: 00 Yes [id number] Take 1 capsule by mouth weekly. [facility] levothyroxi ne 112 mcg tablet 12-10 00:00: 00 Yes [id number] 112ug Take 1 tablet by mouth every morning. [facility] ergocalcife rol, vitamin d2, 1,250 mcg (50,000 unit) capsule 12-10 00:00: 00 Yes [id number] Take 1 capsule by mouth weekly. [facility] levothyroxi ne 112 mcg tablet 12-10 00:00: 00 Yes [id number] 112ug Take 1 tablet by mouth every morning. [facility] ergocalcife rol, vitamin d2, 1,250 mcg (50,000 unit) capsule 12-10 00:00: 00 Yes [id number] Take 1 capsule by mouth weekly. [facility] levothyroxi ne 112 mcg tablet 12-10 00:00: 00 Yes [id number] 112ug Take 1 tablet by mouth every morning. [facility] ergocalcife rol, vitamin d2, 1,250 mcg (50,000 unit) capsule 12-10 00:00: 00 Yes [id number] Take 1 capsule by mouth weekly. [facility] levothyroxi ne 112 mcg tablet 12-10 00:00: 00 Yes [id number] 112ug Take 1 tablet by mouth every morning. [facility] ergocalcife rol, vitamin d2, 1,250 mcg (50,000 unit) capsule 12-10 00:00: 00 Yes [id number] Take 1 capsule by mouth weekly. [facility] levothyroxi ne 112 mcg tablet 12-10 00:00: 00 Yes [id number] 112ug Take 1 tablet by mouth every morning. [facility] ergocalcife rol, vitamin d2, 1,250 mcg (50,000 unit) capsule 12-10 00:00: 00 Yes [id number] Take 1 capsule by mouth weekly. [facility] levothyroxi ne 112 mcg tablet 12-10 00:00: 00 Yes [id number] 112ug Take 1 tablet by mouth every morning. [facility] ergocalcife rol, vitamin d2, 1,250 mcg (50,000 unit) capsule 12-10 00:00: 00 Yes [id number] Take 1 capsule by mouth weekly. [facility] levothyroxi ne 112 mcg tablet 12-10 00:00: 00 Yes [id number] 112ug Take 1 tablet by mouth every morning. [facility] ergocalcife rol, vitamin d2, 1,250 mcg (50,000 unit) capsule 12-10 00:00: 00 Yes [id number] Take 1 capsule by mouth weekly. [facility] levothyroxi ne 112 mcg tablet 0 12-10 00:00: 00 Yes [id number] 112ug Take 1 tablet by mouth every morning. [facility] ergocalcife rol, vitamin d2, 1,250 mcg (50,000 unit) capsule 12-10 00:00: 00 Yes [id number] Take 1 capsule by mouth weekly. [facility] levothyroxi ne 112 mcg tablet 0 12-10 00:00: 00 Yes [id number] 112ug Take 1 tablet by mouth every morning. [facility] ergocalcife rol, vitamin d2, 1,250 mcg (50,000 unit) capsule 0 12-10 00:00: 00 Yes [id number] Take 1 capsule by mouth weekly. [facility] levothyroxi ne 112 mcg tablet 12-10 00:00: 00 Yes [id number] 112ug Take 1 tablet by mouth every morning. [facility] ergocalcife rol, vitamin d2, 1,250 mcg (50,000 unit) capsule 0 12-10 00:00: 00 Yes [id number] Take 1 capsule by mouth weekly. [facility] levothyroxi ne 112 mcg tablet 0 12-10 00:00: 00 Yes [id number] 112ug Take 1 tablet by mouth every morning. [facility] ergocalcife rol, vitamin d2, 1,250 mcg (50,000 unit) capsule 0 12-10 00:00: 00 Yes [id number] Take 1 capsule by mouth weekly. [facility] levothyroxi ne 112 mcg tablet 0 12-10 00:00: 00 Yes [id number] 112ug Take 1 tablet by mouth every morning. [facility] ergocalcife rol, vitamin d2, 1,250 mcg (50,000 unit) capsule 12-10 00:00: 00 Yes [id number] Take 1 capsule by mouth weekly. [facility] levothyroxi ne 112 mcg tablet 0 12-10 00:00: 00 Yes [id number] 112ug Take 1 tablet by mouth every morning. [facility] ergocalcife rol, vitamin d2, 1,250 mcg (50,000 unit) capsule 12-10 00:00: 00 Yes [id number] Take 1 capsule by mouth weekly. [facility] levothyroxi ne 112 mcg tablet 0 12-10 00:00: 00 Yes [id number] 112ug Take 1 tablet by mouth every morning. [facility] ergocalcife rol, vitamin d2, 1,250 mcg (50,000 unit) capsule 12-10 00:00: 00 Yes [id number] Take 1 capsule by mouth weekly. [facility] levothyroxi ne 112 mcg tablet 12-10 00:00: 00 Yes [id number] 112ug Take 1 tablet by mouth every morning. [facility] ergocalcife rol, vitamin d2, 1,250 mcg (50,000 unit) capsule 0 12-10 00:00: 00 Yes [id number] Take 1 capsule by mouth weekly. [facility] levothyroxi ne 112 mcg tablet 0 12-10 00:00: 00 Yes [id number] 112ug Take 1 tablet by mouth every morning. [facility] ergocalcife rol, vitamin d2, 1,250 mcg (50,000 unit) capsule 0 12-10 00:00: 00 Yes [id number] Take 1 capsule by mouth weekly. [facility] levothyroxi ne 112 mcg tablet 0 12-10 00:00: 00 Yes [id number] 112ug Take 1 tablet by mouth every morning. [facility] ergocalcife rol, vitamin d2, 1,250 mcg (50,000 unit) capsule 12-10 00:00: 00 Yes [id number] Take 1 capsule by mouth weekly. [facility] levothyroxi ne 112 mcg tablet 12-10 00:00: 00 Yes [id number] 112ug Take 1 tablet by mouth every morning. [facility] ergocalcife rol, vitamin d2, 1,250 mcg (50,000 unit) capsule 12-10 00:00: 00 Yes [id number] Take 1 capsule by mouth weekly. [facility] levothyroxi ne 112 mcg tablet 12-10 00:00: 00 Yes [id number] 112ug Take 1 tablet by mouth every morning. [facility] ergocalcife rol, vitamin d2, 1,250 mcg (50,000 unit) capsule 12-10 00:00: 00 Yes [id number] Take 1 capsule by mouth weekly. [facility] levothyroxi ne 112 mcg tablet 12-10 00:00: 00 Yes [id number] 112ug Take 1 tablet by mouth every morning. [facility] ergocalcife rol, vitamin d2, 1,250 mcg (50,000 unit) capsule 12-10 00:00: 00 Yes [id number] Take 1 capsule by mouth weekly. [facility] levothyroxi ne 112 mcg tablet 12-10 00:00: 00 Yes [id number] 112ug Take 1 tablet by mouth every morning. [facility] ergocalcife rol, vitamin d2, 1,250 mcg (50,000 unit) capsule 12-10 00:00: 00 Yes [id number] Take 1 capsule by mouth weekly. [facility] levothyroxi ne 112 mcg tablet 12-10 00:00: 00 Yes [id number] 112ug Take 1 tablet by mouth every morning. [facility] ergocalcife rol, vitamin d2, 1,250 mcg (50,000 unit) capsule 12-10 00:00: 00 Yes [id number] Take 1 capsule by mouth weekly. [facility] levothyroxi ne 112 mcg tablet 0 12-10 00:00: 00 Yes [id number] 112ug Take 1 tablet by mouth every morning. [facility] ergocalcife rol, vitamin d2, 1,250 mcg (50,000 unit) capsule 12-10 00:00: 00 Yes [id number] Take 1 capsule by mouth weekly. [facility] levothyroxi ne 112 mcg tablet 0 12-10 00:00: 00 Yes [id number] 112ug Take 1 tablet by mouth every morning. [facility] ergocalcife rol, vitamin d2, 1,250 mcg (50,000 unit) capsule 12-10 00:00: 00 Yes [id number] Take 1 capsule by mouth weekly. [facility] levothyroxi ne 112 mcg tablet 12-10 00:00: 00 Yes [id number] 112ug Take 1 tablet by mouth every morning. [facility] ergocalcife rol, vitamin d2, 1,250 mcg (50,000 unit) capsule 12-10 00:00: 00 Yes [id number] Take 1 capsule by mouth weekly. [facility] levothyroxi ne 125 mcg tablet 0 12-04 00:00: 00 Yes [id number] 125ug Take 1 tablet by mouth every morning. [facility] levothyroxi ne 125 mcg tablet 0 12-04 00:00: 00 12-10 00:00 :00 No [id number] 125ug Take 1 tablet by mouth every morning. [facility] levothyroxi ne 125 mcg tablet 0 26 00:00: 00 12-10 00:00 :00 No [id number] 125ug Take 1 tablet by mouth every morning. [facility] levothyroxi ne 125 mcg tablet 0 420 00:00: 00 Yes [id number] TAKE 1 TABLET BY MOUTH EVERY DAY IN THE MORNING [facility] levothyroxi ne 125 mcg tablet 2022-0 11-28 00:00: 00 Yes [id number] TAKE 1 TABLET BY MOUTH EVERY DAY IN THE MORNING [facility] levothyroxi ne 125 mcg tablet 0 11-28 00:00: 00 Yes [id number] TAKE 1 TABLET BY MOUTH EVERY DAY IN THE MORNING [facility] levothyroxi ne 125 mcg tablet 2022-0 11-28 00:00: 00 Yes [id number] TAKE 1 TABLET BY MOUTH EVERY DAY IN THE MORNING [facility] levothyroxi ne 125 mcg tablet 2022-0 11-28 00:00: 00 Yes [id number] TAKE 1 TABLET BY MOUTH EVERY DAY IN THE MORNING [facility] levothyroxi ne 125 mcg tablet 0 11-28 00:00: 00 12-04 00:00 :00 No [id number] TAKE 1 TABLET BY MOUTH EVERY DAY IN THE MORNING [facility] levothyroxi ne 125 mcg tablet 0 03-06 00:00: 00 Yes [id number] 125ug Take 1 tablet by mouth every morning. [facility] levothyroxi ne 125 mcg tablet 0 03-06 00:00: 00 Yes [id number] 125ug Take 1 tablet by mouth every morning. [facility] levothyroxi ne 125 mcg tablet 0 03-06 00:00: 00 Yes [id number] 125ug Take 1 tablet by mouth every morning. [facility] levothyroxi ne 125 mcg tablet 0 03-06 00:00: 00 Yes [id number] 125ug Take 1 tablet by mouth every morning. [facility] levothyroxi ne 125 mcg tablet 2021-0 03-06 00:00: 00 Yes [id number] 125ug Take 1 tablet by mouth every morning. [facility] levothyroxi ne 125 mcg tablet 2021-0 03-06 00:00: 00 Yes [id number] 125ug Take 1 tablet by mouth every morning. [facility] levothyroxi ne 125 mcg tablet 2021-0 03-06 00:00: 00 Yes [id number] 125ug Take 1 tablet by mouth every morning. [facility] levothyroxi ne 125 mcg tablet 03-06 00:00: 00 11-28 00:00 :00 No [id number] 125ug Take 1 tablet by mouth every morning. [facility] levothyroxi ne 200 mcg tablet 12-06 00:00: 00 Yes [id number] 200ug Take 1 tablet by mouth every morning. [facility] levothyroxi ne 200 mcg tablet 0 12-06 00:00: 00 Yes [id number] 200ug Take 1 tablet by mouth every morning. [facility] levothyroxi ne 200 mcg tablet 12-06 00:00: 00 Yes [id number] 200ug Take 1 tablet by mouth every morning. [facility] levothyroxi ne 200 mcg tablet 12-06 00:00: 00 Yes [id number] 200ug Take 1 tablet by mouth every morning. [facility] levothyroxi ne 200 mcg tablet 12-06 00:00: 00 Yes [id number] 200ug Take 1 tablet by mouth every morning. [facility] levothyroxi ne 200 mcg tablet 12-06 00:00: 00 Yes [id number] 200ug Take 1 tablet by mouth every morning. [facility] levothyroxi ne 200 mcg tablet 12-06 00:00: 00 03-06 00:00 :00 No [id number] 200ug Take 1 tablet by mouth every morning. [facility] levothyroxi ne 150 mcg tablet 2020-08 00:00: 00 Yes [id number] take 2 tablets on Friday thru Friday, one tablet on Friday and Friday [facility] levothyroxi ne 150 mcg tablet 2020-08 00:00: 00 Yes [id number] take 2 tablets on Friday thru Friday, one tablet on Friday and Friday [facility] levothyroxi ne 150 mcg tablet 2020-08 00:00: 00 12-06 00:00 :00 No [id number] take 2 tablets on Friday thru Friday, one tablet on Friday and Friday [facility] HYDROcodone -acetaminop hen 10-325 mg tablet 04-17 00:00: 00 Yes [facility] HYDROcodone -acetaminop hen 10-325 mg tablet 04-17 00:00: 00 Yes [facility] HYDROcodone -acetaminop hen 10-325 mg tablet 04-17 00:00: 00 Yes [facility] HYDROcodone -acetaminop hen 10-325 mg tablet 04-17 00:00: 00 Yes [facility] HYDROcodone -acetaminop hen 10-325 mg tablet 04-17 00:00: 00 Yes [facility] HYDROcodone -acetaminop hen 10-325 mg tablet 04-17 00:00: 00 Yes [facility] HYDROcodone -acetaminop hen 10-325 mg tablet 04-17 00:00: 00 Yes [facility] HYDROcodone -acetaminop hen 10-325 mg tablet 04-17 00:00: 00 Yes [facility] HYDROcodone -acetaminop hen 10-325 mg tablet 04-17 00:00: 00 Yes [facility] HYDROcodone -acetaminop hen 10-325 mg tablet 04-17 00:00: 00 Yes [facility] HYDROcodone -acetaminop hen 10-325 mg tablet 04-17 00:00: 00 Yes [facility] HYDROcodone -acetaminop hen 10-325 mg tablet 04-17 00:00: 00 Yes [facility] HYDROcodone -acetaminop hen 10-325 mg tablet 04-17 00:00: 00 Yes [facility] HYDROcodone -acetaminop hen 10-325 mg tablet 04-17 00:00: 00 Yes [facility] HYDROcodone -acetaminop hen 10-325 mg tablet 04-17 00:00: 00 Yes [facility] HYDROcodone -acetaminop hen 10-325 mg tablet 04-17 00:00: 00 Yes [facility] HYDROcodone -acetaminop hen 10-325 mg tablet 04-17 00:00: 00 Yes [facility] HYDROcodone -acetaminop hen 10-325 mg tablet 04-17 00:00: 00 Yes [facility] HYDROcodone -acetaminop hen 10-325 mg tablet 04-17 00:00: 00 Yes [facility] HYDROcodone -acetaminop hen 10-325 mg tablet 04-17 00:00: 00 Yes [facility] HYDROcodone -acetaminop hen 10-325 mg tablet 04-17 00:00: 00 Yes [facility] HYDROcodone -acetaminop hen 10-325 mg tablet 04-17 00:00: 00 Yes [facility] HYDROcodone -acetaminop hen 10-325 mg tablet 04-17 00:00: 00 Yes [facility] HYDROcodone -acetaminop hen 10-325 mg tablet 04-17 00:00: 00 Yes [facility] HYDROcodone -acetaminop hen 10-325 mg tablet 04-17 00:00: 00 Yes [facility] HYDROcodone -acetaminop hen 10-325 mg tablet 04-17 00:00: 00 Yes [facility] HYDROcodone -acetaminop hen 10-325 mg tablet 04-17 00:00: 00 Yes [facility] HYDROcodone -acetaminop hen 10-325 mg tablet 04-17 00:00: 00 Yes [facility] HYDROcodone -acetaminop hen 10-325 mg tablet 04-17 00:00: 00 Yes [facility] HYDROcodone -acetaminop hen 10-325 mg tablet 04-17 00:00: 00 Yes [facility] HYDROcodone -acetaminop hen 10-325 mg tablet 04-17 00:00: 00 Yes [facility] HYDROcodone -acetaminop hen 10-325 mg tablet 04-17 00:00: 00 Yes [facility] HYDROcodone -acetaminop hen 10-325 mg tablet 04-17 00:00: 00 Yes [facility] HYDROcodone -acetaminop hen 10-325 mg tablet 04-17 00:00: 00 Yes [facility] HYDROcodone -acetaminop hen 10-325 mg tablet 04-17 00:00: 00 Yes [facility] HYDROcodone -acetaminop hen 10-325 mg tablet 04-17 00:00: 00 Yes [facility] HYDROcodone -acetaminop hen 10-325 mg tablet 04-17 00:00: 00 Yes [facility] HYDROcodone -acetaminop hen 10-325 mg tablet 04-17 00:00: 00 Yes [facility] HYDROcodone -acetaminop hen 10-325 mg tablet 04-17 00:00: 00 Yes [facility] HYDROcodone -acetaminop hen 10-325 mg tablet 04-17 00:00: 00 Yes [facility] HYDROcodone -acetaminop hen 10-325 mg tablet 04-17 00:00: 00 Yes [facility] HYDROcodone -acetaminop hen 10-325 mg tablet 04-17 00:00: 00 Yes [facility] HYDROcodone -acetaminop hen 10-325 mg tablet 04-17 00:00: 00 Yes [facility] HYDROcodone -acetaminop hen 10-325 mg tablet 04-17 00:00: 00 Yes [facility] HYDROcodone -acetaminop hen 10-325 mg tablet 04-17 00:00: 00 Yes [facility] HYDROcodone -acetaminop hen 10-325 mg tablet 04-17 00:00: 00 Yes [facility] HYDROcodone -acetaminop hen 10-325 mg tablet 0 04-17 00:00: 00 Yes [facility] HYDROcodone -acetaminop hen 10-325 mg tablet 2020-0 04-17 00:00: 00 Yes [facility] HYDROcodone -acetaminop hen 10-325 mg tablet 2020-0 04-17 00:00: 00 Yes [facility] HYDROcodone -acetaminop hen 10-325 mg tablet 0 04-17 00:00: 00 Yes [facility] HYDROcodone -acetaminop hen 10-325 mg tablet 2020-0 04-17 00:00: 00 Yes [facility] HYDROcodone -acetaminop hen 10-325 mg tablet 0 04-17 00:00: 00 Yes [facility] HYDROcodone -acetaminop hen 10-325 mg tablet 0 04-17 00:00: 00 Yes [facility] HYDROcodone -acetaminop hen 10-325 mg tablet 0 04-17 00:00: 00 Yes [facility] HYDROcodone -acetaminop hen 10-325 mg tablet 0 04-17 00:00: 00 Yes [facility] Immunizations Ordered Immunization Name Filled Immunization Name Date Status Comments Source Influenza Virus Vaccine Quad IM, Preserv and ABX Free 6 MO-64 YRS (FLUCELVAX) Unknown Completed [facility] Influenza Virus Vaccine Quad IM, Preserv and ABX Free 6 MO-64 YRS (FLUCELVAX) Unknown Completed [facility] Influenza Virus Vaccine Quad IM, Preserv and ABX Free 6 MO-64 YRS (FLUCELVAX) Unknown Completed [facility] Influenza Virus Vaccine Quad IM, Preserv and ABX Free 6 MO-64 YRS (FLUCELVAX) Unknown Completed [facility] Influenza Virus Vaccine Quad IM, Preserv and ABX Free 6 MO-64 YRS (FLUCELVAX) Unknown Completed [facility] Influenza Virus Vaccine Quad IM, Preserv and ABX Free 6 MO-64 YRS (FLUCELVAX) Unknown Completed [facility] Influenza Virus Vaccine Quad IM, Preserv and ABX Free 6 MO-64 YRS (FLUCELVAX) Unknown Completed [facility] Influenza Virus Vaccine Quad IM, Preserv and ABX Free 6 MO-64 YRS (FLUCELVAX) Unknown Completed [facility] Influenza Virus Vaccine Quad IM, Preserv and ABX Free 6 MO-64 YRS (FLUCELVAX) Unknown Completed [facility] Influenza Virus Vaccine Quad IM, Preserv and ABX Free 6 MO-64 YRS (FLUCELVAX) Unknown Completed [facility] Influenza Virus Vaccine Quad IM, Preserv and ABX Free 6 MO-64 YRS (FLUCELVAX) Unknown Completed [facility] Influenza Virus Vaccine Quad IM, Preserv and ABX Free 6 MO-64 YRS (FLUCELVAX) Unknown Completed [facility] Influenza Virus Vaccine Quad IM, Preserv and ABX Free 6 MO-64 YRS (FLUCELVAX) Unknown Completed [facility] Influenza Virus Vaccine Quad IM, Preserv and ABX Free 6 MO-64 YRS (FLUCELVAX) Unknown Completed [facility] Influenza Virus Vaccine Quad IM, Preserv and ABX Free 6 MO-64 YRS (FLUCELVAX) Unknown Completed [facility] Influenza Virus Vaccine Quad IM, Preserv and ABX Free 6 MO-64 YRS (FLUCELVAX) Unknown Completed [facility] Vital Signs Vital Name Observation Time Observation Value Comments S ource Systolic blood pressure 2023-08-19 20:39:00 121 mm[Hg] [facility] Diastolic blood pressure 2023-08-19 20:39:00 71 mm[Hg] [facility] Heart rate 2023-08-19 20:39:00 64 /min [place] [facility] Body temperature 2023-08-19 20:11:00 36.44 Maribel [facility] Respiratory rate 2023-08-19 20:11:00 17 /min [facility] Body height 2023-08-19 20:11:00 162.6 cm [facility] Body weight 2023-08-19 20:11:00 149.233 kg [facility] BMI 2023-08-19 20:11:00 56.47 kg/m2 [facility] Oxygen saturation in Arterial blood by Pulse oximetry 2023-08-19 20:11:00 100 /min room air [facility] Systolic blood pressure 2023-07-15 18:18:00 135 mm[Hg] [facility] Diastolic blood pressure 2023-07-15 18:18:00 82 mm[Hg] [facility] Heart rate 2023-07-15 18:18:00 56 /min [facility] 2023-07-15 17:43:00 162.6 cm Univ [facility] Body weight 2023-07-15 17:43:00 153.543 kg Univ [facility] BMI 2023-07-15 17:43:00 58.10 kg/m2 Univ [facility] Systolic blood pressure 2023-06-17 17:34:00 143 mm[Hg] [facility] Diastolic blood pressure 2023-06-17 17:34:00 80 mm[Hg] [facility] Heart rate 2023-06-17 17:25:00 58 /min Unive [facility] Respiratory rate 2023-06-17 17:25:00 18 /min [facility] Body height 2023-06-17 17:25:00 162.6 cm Univ [facility] Body weight 2023-06-17 17:25:00 152.817 kg Univ [facility] BMI 2023-06-17 17:25:00 57.83 kg/m2 Univ [facility] Systolic blood pressure 2023-01-23 15:53:00 135 mm[Hg] [facility] Diastolic blood pressure 2023-01-23 15:53:00 82 mm[Hg] [facility] Heart rate 2023-01-23 15:53:00 97 /min [facility] Body height 2023-01-23 15:53:00 162.6 cm Univ [facility] Body weight 2023-01-23 15:53:00 160.029 kg Univ [facility] BMI 2023-01-23 15:53:00 60.56 kg/m2 Univ [facility] Systolic blood pressure 2023-01-10 16:58:00 138 mm[Hg] [facility] Diastolic blood pressure 2023-01-10 16:58:00 87 mm[Hg] [facility] Heart rate 2023-01-10 16:58:00 61 /min Unive [facility] Respiratory rate 2023-01-10 16:58:00 18 /min [facility] Oxygen saturation in Arterial blood by Pulse oximetry 2023-01-10 16:58:00 98 /min [facility] Body temperature 2023-01-10 12:47:00 36.5 Maribel [facility] Body height 2023-01-08 15:00:00 162.6 cm Univ [facility] Body weight 2023-01-08 15:00:00 166.924 kg [facility] BMI 2023-01-08 15:00:00 63.17 kg/m2 [facility] Systolic blood pressure 2022-12-26 15:42:00 169 mm[Hg] [facility] Diastolic blood pressure 2022-12-26 15:42:00 89 mm[Hg] [facility] Heart rate 2022-12-26 15:42:00 96 /min [facility] Body height 2022-12-26 15:42:00 162.6 cm [facility] Body weight 2022-12-26 15:42:00 167.287 kg [facility] BMI 2022-12-26 15:42:00 63.30 kg/m2 [facility] Systolic blood pressure 2022-12-10 16:37:00 160 mm[Hg] [facility] Diastolic blood pressure 2022-12-10 16:37:00 79 mm[Hg] [facility] Body height 2022-12-10 16:37:00 162.6 cm Univ [facility] Body weight 2022-12-10 16:37:00 168.33 kg [facility] BMI 2022-12-10 16:37:00 63.70 kg/m2 Univ [facility] Body weight 2022-07-11 15:48:00 190.919 kg [facility] BMI 2022-07-11 15:48:00 72.25 kg/m2 [facility] Systolic blood pressure 2022-06-11 16:23:00 122 mm[Hg] [facility] Diastolic blood pressure 2022-06-11 16:23:00 87 mm[Hg] [facility] Heart rate 2022-06-11 16:23:00 63 /min [facility] Body weight 2022-06-11 16:23:00 185.567 kg [facility] BMI 2022-06-11 16:23:00 70.22 kg/m2 [facility] Oxygen saturation in Arterial blood by Pulse oximetry 2022-06-11 16:23:00 98 /min [facility] Body weight 2022-02-27 19:14:00 199.22 kg [facility] BMI 2022-02-27 19:14:00 75.39 kg/m2 [facility] Systolic blood pressure 2021-12-05 20:15:00 161 mm[Hg] [facility] Diastolic blood pressure 2021-12-05 20:15:00 87 mm[Hg] [facility] Heart rate 2021-12-05 20:14:00 112 /min [facility] Body height 2021-12-05 20:14:00 162.6 cm [facility] Body weight 2021-12-05 20:14:00 209.108 kg [facility] BMI 2021-12-05 20:14:00 79.13 kg/m2 [facility] Oxygen saturation in Arterial blood by Pulse oximetry 2021-12-05 20:14:00 92 /min [facility] Procedures Procedure Date / Time Performed Performing Clinician Source URINALYSIS 2023-08-19 23:12:00 [facility] CREATINE KINASE 2023-08-19 21:16:00 Timothy Joy [facility] COMP. METABOLIC PANEL (14672) 2023-08-19 21:16:00 Timothy Joy [facility] SEDIMENTATION RATE 2023-08-19 21:16:00 Grant Joy [facility] CBC WITH DIFF 2023-08-19 21:16:00 Timothy Joy [facility] HEPATITIS B SURFACE ANTIGEN 2023-08-19 21:16:00 Timothy Joy [facility] HCV ANTIBODY 2023-08-19 21:16:00 Timothy Joy [facility] VITAMIN D, 25-OH 2023-08-19 21:16:00 Timothy Joy [facility] C-REACTIVE PROTEIN 2023-08-19 21:16:00 Grant Joy [facility] C4 COMPLEMENT 2023-08-19 21:16:00 Timothy Joy [facility] ANTIPHOSPHOLIPID ANTIBODY EVALUATION-SST 2023-08-19 21:16:00 Timothy Joy [facility] HB CREATININE SERUM/BLOOD FOR IMAGING 2023-07-29 22:29:00 Frankie Barrientos [facility] FLU VACC ([id number]), 6 MO-64 YRS, .5ML, IM, QUAD (FLUCELVAX) 2023-06-17 17:45:18 Sofía Newton [facility] ASSIGNMENT OF BENEFITS 2023-06-17 17:19:54 Docto r Unassigned, Seis Lagos [facility] AUTHORIZATION FOR RELEASE OF PHI 2023-03-19 05:01:00 Doctor Unassigned, Seis Lagos [facility] US HEAD NECK 2023-01-16 16:47:19 Sofía Newton [facility] PATIENT FINANCIAL POLICY 2023-01-16 16:00:34 Doctor Unassigned, Seis Lagos [facility] POCT GLUCOSE (AUTOMATED) 2023-01-10 12:48:00 Joshua Carcamo [facility] BASIC METABOLIC PANEL (NA, K, CL, CO2, GLUCOSE, BUN, CREATININE, CA) 2023-01-10 10:19:00 Rock Clemons [facility] POCT GLUCOSE (AUTOMATED) 2023-01-10 02:14:00 Joshua Carcamo [facility] POCT GLUCOSE (AUTOMATED) 2023-01-09 21:36:00 Joshua Carcamo [facility] POCT GLUCOSE (AUTOMATED) 2023-01-09 16:33:00 Joshua Carcamo [facility] POCT GLUCOSE (AUTOMATED) 2023-01-09 12:47:00 Joshua Carcamo [facility] MAGNESIUM 2023-01-09 09:09:00 Rock Clemons [facility] BASIC METABOLIC PANEL (NA, K, CL, CO2, GLUCOSE, BUN, CREATININE, CA) 2023-01-09 09:09:00 Rock Clemons [facility] LIPID PANEL (69308)(TOTAL CHOLESTEROL, TRIGLYCERIDES, HDL) 2023-01-09 09:09:00 Rock Clemons [facility] POCT GLUCOSE (AUTOMATED) 2023-01-09 02:15:00 Joshua Carcamo [facility] MR BRAIN WO CONTRAST 2023-01-09 01:25:52 Christina Reynolds [facility] GLYCOSYLATED HEMOGLOBIN (A1C) 2023-01-08 18:58:00 Rock Clemons [facility] POCT GLUCOSE (AUTOMATED) 2023-01-08 17:12:00 Joshua Carcamo [facility] XR CHEST 1 VW 2023-01-08 06:45:00 Rosalino Carcamo [facility] CT HEAD WO CONTRAST 2023-01-08 06:29:00 Rosalino Carcamo [facility] TROPONIN I 2023-01-08 06:13:00 Rosalino Carcamo [facility] COMP. METABOLIC PANEL (77473) 2023-01-08 06:13:00 Rosalino Carcamo [facility] POCT GLUCOSE(AGE >30DAYS) 2023-01-08 06:12:00 Rosalino Carcamo [facility] CBC WITH DIFF 2023-01-08 05:43:00 Rosalino Carcamo [facility] URINALYSIS 2023-01-08 05:43:00 Rosalino Carcamo [facility] POCT GLUCOSE (AUTOMATED) 2023-01-08 05:41:00 Joshua Carcamo [facility] HB ECG ROUTINE & RHYTHM STRIP 2023-01-08 05:12:30 Rosalino Carcamo [facility] NOTICE OF PRIVACY PRACTICES 2023-01-08 04:51:15 Doctor Unassigned, Seis Lagos [facility] CONSENT/REFUSAL FOR DIAGNOSIS AND TREATMENT 2023-01-08 04:50:26 Doctor Unassigned, Seis Lagos [facility] HOSPITAL ADMISSION 2023-01-07 05:01:00 Doctor Un assigned, Seis Lagos [facility] ASSIGNMENT OF BENEFITS 2022-06-11 16:10:10 Docto r Unassigned, Seis Lagos [facility] Encounters Start Date/Time End Date/Time Encounter Type Admission Type Attending [facility] Facility Care Department Encounter ID Source 2023-01-08 06:01:38 Outpatient U MAURICIO PHILLIPS MAURICIO [facility] [id number] [facility] 2023-01-08 03:39:47 Outpatient U MAURICIO PHILLIPS SAMEER [facility] [id number] [facility] 2023-08-19 15:15:00 2023-08-19 15:30:00 Denture Packer Visit Pcp-Lab Timothy Joy [facility] 1.2.840.114 350.1.13.10 4.2.7.2.686 [id number] [facility] 2023-08-19 14:00:00 2023-08-19 14:48:38 Outpatient R TIMOTHY JOY [facility] [id number] [facility] 2023-08-19 14:00:00 2023-08-19 14:48:38 Office Visit Timothy Joy [facility] 1.2.840.114 350.1.13.10 4.2.7.2.686 [id number] [facility] 2023-08-19 00:00:00 2023-08-19 00:00:00 Telephone Frankie Barrientos [facility] FREDDY?[facility]NE [facility] 1.2.840.114 350.1.13.10 4.2.7.2.686 [id number] [facility] 2023-07-29 13:46:28 2023-07-29 23:59:00 Hospital Encounter Frankie Barrientos [facility] 1.2.840.114 350.1.13.10 4.2.7.2.686 [id number] [facility] 2023-07-29 13:45:22 2023-07-29 13:45:22 Hospital Encounter Frankie Barrientos [facility] 1.2.840.114 350.1.13.10 4.2.7.2.686 [id number] [facility] 2023-07-29 00:00:00 2023-07-29 13:45:22 Outpatient R FRANKIE BARRIENTOS [facility] [id number] [facility] 2023-07-15 12:00:00 2023-07-15 13:41:45 Outpatient R FRANKIE BARRIENTOS [facility] [id number] [facility] 2023-07-15 12:00:00 2023-07-15 13:41:45 Office Visit Frankie Barrientos [facility] FREDDY?LAURALuis [facility] 1.2.840.114 350.1.13.10 4.2.7.2.686 [id number] [facility] 2023-06-17 11:30:00 2023-06-17 15:03:08 [facility] [id number] 2023-06-17 11:30:00 2023-06-17 15:03:08 [facility] 1.2840.114 350.1.13.10 4.2.7.2.686 [id number] [facility] 2023-06-17 12:30:00 2023-06-17 12:45:00 Denture Packer Visit Lab, Jeremiah - Derek Newton [facility] 1.0.114 350.1.13.10 4.2.7.2.686 [id number] [facility] 2023-06-17 00:00:00 2023-06-17 00:00:00 Orders Only Doctor Unassigned, Seis Lagos [facility] 1.2840.114 350.1.13.10 4.2.7.2.686 [id number] [facility] 2023-03-19 00:00:00 2023-03-19 00:00:00 Orders Only Doctor Unassigned, Seis Lagos [facility] 1.2840.114 350.1.13.10 4.2.7.2.686 [id number] [facility] 2023-02-23 00:00:00 2023-02-23 00:00:00 Telephone Lamar [facility] 1..114 350.1.13.10 4.2.7.2.686 [id number] [facility] 2023-01-23 11:00:00 2023-01-23 11:15:00 Office Visit Rasta Beltran Craig L [facility] 1..114 350.1.13.10 4.2.7.2.686 [id number] [facility] 2023-01-23 11:00:00 2023-01-23 11:00:00 Outpatient JIAN WATTS [facility] [id number] [facility] 2023-01-16 11:00:01 2023-01-16 23:59:00 Outpatient R LAMAR [facility] [id number] [facility] 2023-01-16 11:00:00 2023-01-16 23:59:00 Hospital Encounter Sofía Newton [facility] 1.84.114 350.1.13.10 4.2.7.2.686 [id number] [facility] 2023-01-13 00:00:00 2023-01-13 00:00:00 Transition of Care Divina Coello [place] 1..840.114 350.1.13.10 4.2.7.2.686 [id number] [facility] 2023-01-07 23:56:00 2023-01-10 15:00:00 Inpatient X [facility] [id number] [facility] 2023-01-07 23:56:00 2023-01-10 15:00:00 Hospital Encounter [facility]alino [facility] 1.840.114 350.1.13.10 4.2.7.2.686 [id number] [facility] 2023-01-01 14:30:00 2023-01-01 14:30:00 Outpatient JIAN WATTS [facility] [id number] [facility] 2022-12-26 12:30:00 2022-12-26 12:45:00 Denture Packer Visit Lab, Rasta Grimaldo [facility]?DAFNE [facility] 1.840.114 350.1.13.10 4.2.7.2.686 [id number] [facility] 2022-12-26 11:15:00 2022-12-26 12:12:03 Outpatient R JIAN CASTILLO [facility] [id number] [facility] 2022-12-26 11:15:00 2022-12-26 11:30:00 Office Visit Rasta Beltran Jian [facility]?DAFNE [facility] MED[facility] OFF[facility] BUILD[facility] 1.2840.114 350.1.13.10 4.2.7.2.686 [id number] [facility] 2022-12-10 11:30:00 2022-12-10 12:33:01 Outpatient R LAMAR [facility] [id number] [facility] 2022-12-10 11:30:00 2022-12-10 12:33:01 [facility] 1.840.114 350.1.13.10 4.2.7.2.686 [id number] [facility] 2022-12-03 00:00:00 2022-12-03 00:00:00 Telephone Lamar [facility]?DAFNE [facility] 1..114 350.1.13.10 4.2.7.2.686 [id number] [facility] 2022-12-03 00:00:00 2022-12-03 00:00:00 Refill Newton [facility] 1..114 350.1.13.10 4.2.7.2.686 [id number] [facility] 2022-12-02 00:00:00 2022-12-02 00:00[facility] 1.114 350.1.13.10 4.2.7.2.686 [id number] [facility] 2022-11-28 00:00:00 2022-11-28 00:00:00 Refill Lamar [facility] 1.114 350.1.13.10 4.2.7.2.686 [id number] [facility] 2022-07-11 10:00:00 2022-07-11 10:00:00 Nurse Visit Nurse, Jeremiah Peres/Basil Velazquez [facility] 1.114 350.1.13.10 4.2.7.2.686 [id number] [facility] 2022-07-11 10:00:00 2022-07-11 09:55:03 Outpatient R BASIL FLORES [facility] [id number] [facility] 2022-06-21 00:00:00 2022-06-21 00:00:00 Telephone [facility] 1.114 350.1.13.10 4.2.7.2.686 [id number] [facility] 2022-06-11 12:00:00 2022-06-11 12:15:00 Denture Packer Visit Lab, Jeremiah Newton [facility] 1.114 350.1.13.10 4.2.7.2.686 [id number] [facility] 2022-06-11 11:30:00 2022-06-11 11:54:03 Outpatient R LAMAR [facility] [id number] [facility] 2022-06-11 11:30:00 2022-06-11 11:54:03 [facility] 1.114 350.1.13.10 4.2.7.2.686 [id number] [facility] 2022-06-11 00:00:00 2022-06-11 00:00:00 Orders Only Doctor Unassigned, Seis Lagos [facility] 1.114 350.1.13.10 4.2.7.2.686 [id number] [facility] 2022-03-06 00:00:00 2022-03-06 00:00:00 Telephone Lamar [facility] 1.114 350.1.13.10 4.2.7.2.686 [id number] [facility] 2022-02-27 11:00:00 2022-02-27 11:15:00 Denture Packer Visit Lab, Jeremiah Newton [facility] 1.84.114 350.1.13.10 4.2.7.2.686 [id number] [facility] 2022-02-27 11:00:00 2022-02-27 11:00:00 Outpatient R LAMAR [facility] [id number] [facility] 2022-02-27 00:00:00 2022-02-27 00:00:00 Clinic Assessment Lamar [facility] 1.84.114 350.1.13.10 4.2.7.2.686 [id number] [facility] 2022-01-28 00:00:00 2022-01-28 00:00:00 Telephone [facility] 1.114 350.1.13.10 4.2.7.2.686 [id number] [facility] 2022-01-04 11:45:00 2022-01-04 12:00:00 Denture Packer Visit Lab, Ang - Db Lamar [facility] 1..840.114 350.1.13.10 4.2.7.2.686 [id number] [facility] 2022-01-04 11:45:00 2022-01-04 11:45:00 Outpatient R LAMAR [facility] [id number] [facility] 2021-12-09 00:00:00 2021-12-09 00:00:00 Refill Lamar [facility]?DAFNE [facility] OFF[facility] BUILD[facility] 1..840.114 350.1.13.10 4.2.7.2.686 [id number] [facility] 2021-12-06 00:00:00 2021-12-06 00:00:00 Telephone Lamar [facility] 1.840.114 350.1.13.10 4.2.7.2.686 [id number] [facility] 2021-12-05 15:00:00 2021-12-05 16:12:54 [facility] 1..840.114 350.1.13.10 4.2.7.2.686 [id number] [facility] 2021-12-05 15:00:00 2021-12-05 16:12:54 Outpatient R LAMAR [facility] [id number] [facility] 2021-12-05 15:45:00 2021-12-05 16:00:00 Denture Packer Visit Lab, Jeremiah - Derek Lamar [facility] 1..840.114 350.1.13.10 4.2.7.2.686 [id number] [facility] 2021-12-05 15:45:00 2021-12-05 15:45:00 Outpatient R LAMAR [facility] [id number] [facility] 2021-12-05 00:00:00 2021-12-05 00:00:00 Telephone [facility] 1..840.114 350.1.13.10 4.2.7.2.686 [id number] [facility] 2021-07-19 00:00:00 2021-07-19 00:00:00 Telephone Lamar [facility] 1.840.114 350.1.13.10 4.2.7.2.686 [id number] [facility] 2021-06-15 08:16:25 2021-06-15 08:31:25 Denture Packer Visit Pob, Adc Lab Main [facility] 1..840.114 350.1.13.10 4.2.7.2.686 [id number] [facility] 2021-06-15 08:15:00 2021-06-15 08:15:00 Outpatient R LAMAR [facility] [id number] [facility] 2021-06-06 00:00:00 2021-06-06 00:00:00 Telephone [facility] 1..840.114 350.1.13.10 4.2.7.2.686 [id number] [facility] 2021-05-05 10:00:00 2021-05-05 10:00:00 Outpatient R LAMAR [facility] [id number] [facility] 2021-05-05 08:08:33 2021-05-05 08:23:33 Denture Packer Visit [facility]ob[facility] 1..840.114 350.1.13.10 4.2.7.2.686 [id number] [facility] 2021-05-02 09:24:15 2021-05-02 09:39:15 Denture Packer Visit Lab, Jeremiah Reed Lamar [facility]?Dafne [facility] Medical Office Building 1..840.114 350.1.13.10 4.2.7.2.686 [id number] [facility] 2021-05-02 08:39:01 2021-05-02 09:26:09 Office Visit Lamar [facility] Medical [facility] Building 1..840.114 350.1.13.10 4.2.7.2.686 [id number] [facility] 2021-05-02 08:30:00 2021-05-02 08:30:00 Outpatient Sherri NEWTON [facility] [id number] [facility] 2021-05-02 00:00:00 2021-05-02 00:00:00 Orders Only Doctor Unassigned, Seis Lagos [facility] 1..840.114 350.1.13.10 4.2.7.2.686 [id number] [facility] 2020-11-03 11:00:00 2020-11-03 11:00:00 Outpatient ENEIDA OLIVEIRA [facility] [id number] [facility] Results Test Description Test Time Test Comments Results Result Co mments Source [facility] [id number] 16:11:46* Test Item Value Reference Range Interpretation Comme nts C4 (test code = 1013510584) 63 mg/dL 20-59 H Lab Interpretation (test cod e = 76954-7) Abnormal [facility]-Reactive [id number] 16:11:46* Test Item Value Reference Range Interpretation Comme nts CRP (test code = 2462722844) 1.1 mg/dL <=0.8 H Lab Interpretation (test cod e = 69184-7) Abnormal [facility] [id number] 02:30:14* Test Item Value Reference Range Interpretation Comme nts HCV Ab (test code = 67274-7) Negative HCV Semi-Quantitative (test code = 16878-5) 0.01 [facility] [id number] 02:30:14* Test Item Value Reference Range Interpretation Comme nts HCV Ab (test code = 59406-1) Negative HCV Semi-Quantitative (test code = 90569-8) 0.01 [facility] B Surface Wcmoxjb0483-94-39 02:12:33 * Test Item Value Reference Range Interpretation Comme nts HBsAg Semi-Quantitative (maksim t code = 5195-3) 0.07 Negative [facility] B Surface Sghxwaj7968-63-16 02:12:33 * Test Item Value Reference Range Interpretation Comme nts HBsAg Semi-Quantitative (maksim t code = 5195-3) 0.07 Negative [facility] Scrc1962 01:46:09* Test Item Value Reference Range Interpretation Comme nts ESR (test code = 11405-0) 105 See_Comment H [Automated messa ge] The system which generated this result transmitted reference range: 2 - 30 mm/HR. The reference range was not used to interpret this result as normal/abnormal. Lab Interpretation (test code = 58147-1) Abnormal [facility] Hbhk0149-84-65 01:46:09* Test Item Value Reference Range Interpretation Comme nts ESR (test code = 55604-9) 105 See_Comment H [Automated messa ge] The system which generated this result transmitted reference range: 2 - 30 mm/HR. The reference range was not used to interpret this result as normal/abnormal. Lab Interpretation (test code = 89043-0) Abnormal [facility]. Metabolic Panel (58801)2023-08-20 01:35:49* Test Item Value Reference Range Interpretation Comme nts NA (test code = 0301639083) 142 mmol/L 135-145 K (test code = 5397902837) 5.0 mmol/L 3.5-5.0 CL (test code = 6302213459) 108 mmol/L 98-108 CO2 TOTAL (test code = 8399883675) 26 mmol/L 23-31 AGAP (test code = 4567325619) 8 2-16 BUN (test code = 0975124170) 48 mg/dL 7-23 H GLUCOSE (test code = 9898216133) 104 mg/dL 70-110 CREATININE (test code = 8029746181) 1.58 mg/dL 0.50-1.04 H TOTAL BILI (test code = 0374958730) 0.3 mg/dL 0.1-1.1 CALCIUM (test code = 2189424581) 9.9 mg/dL 8.6-10.6 T PROTEIN (test code = 7223996545) 8.5 g/dL 6.3-8.2 H ALBUMIN (test code = 0862988148) 4.7 g/dL 3.5-5.0 ALK PHOS (test code = 0757854878) 84 U/L 34-122 ALTv (test code = 1742-6) 11 U/L 5-35 AST(SGOT) (test code = 9416076657) 20 U/L 13-40 eGFR (test code = 41475-9) 37.1 mL/min/1.73m2 CKD-EPI eGFR (2020). Assuming creatinine has been stable day-to-day for at least three months, the eGFR indicates Category G3b (30 - 44 mL/min/1.73 m2) Lab Interpretation (test code = 57672-8) [facility] Gdbdbt1075-10-92 01:35:49* Test Item Value Reference Range Interpretation Comme nts CK (test code = 0049150515) 44 U/L 33-194 Lab Interpretation (test cod e = 61289-7) Normal [facility] (68166)2023-08-20 01:35:49* Test Item Value Reference Range Interpretation Comme nts NA (test code = 8530658907) 142 mmol/L 135-145 K (test code = 2705315828) 5.0 mmol/L 3.5-5.0 CL (test code = 7900029637) 108 mmol/L 98-108 CO2 TOTAL (test code = 2294248265) 26 mmol/L 23-31 AGAP (test code = 4978463326) 8 2-16 BUN (test code = 4550215265) 48 mg/dL 7-23 H GLUCOSE (test code = 6854344380) 104 mg/dL 70-110 CREATININE (test code = 4367059772) 1.58 mg/dL 0.50-1.04 H TOTAL BILI (test code = 9421970627) 0.3 mg/dL 0.1-1.1 CALCIUM (test code = 9474434317) 9.9 mg/dL 8.6-10.6 T PROTEIN (test code = 0533397622) 8.5 g/dL 6.3-8.2 H ALBUMIN (test code = 8691559398) 4.7 g/dL 3.5-5.0 ALK PHOS (test code = 0552913702) 84 U/L 34-122 ALTv (test code = 1742-6) 11 U/L 5-35 AST(SGOT) (test code = 4274574233) 20 U/L 13-40 eGFR (test code = 07470-1) 37.1 mL/min/1.73m2 CKD-EPI eGFR (2020). Assuming creatinine has been stable day-to-day for at least three months, the eGFR indicates Category G3b (30 - 44 mL/min/1.73 m2) Lab Interpretation (test code = 45991-9) [facility]normal [facility] Tvwwgv1792-03-67 01:35:49* Test Item Value Reference Range Interpretation Comme nts CK (test code = 5366419879) 44 U/L 33-194 Lab Interpretation (test cod e = 34248-7) Normal [facility], 90-DF2380-66-10 01:11:29* Test Item Value Reference Range Interpretation Comme nts VIT D 25OH (test code = 01291-1) 32 ng/mL 25-80 YFN (test code = YFN) Deficiency: <20 ng/mLInsufficiency : 20-24 ng/mLOptimal: 25-80 ng/mL Lab Interpretation (test code = 68371-0) Normal [facility], 68-JW3908-93-10 01:11:29* Test Item Value Reference Range Interpretation Comme nts VIT D 25OH (test code = 17272-6) 32 ng/mL 25-80 YFN (test code = YFN) Deficiency: <20 ng/mLInsufficiency : 20-24 ng/mLOptimal: 25-80 ng/mL Lab Interpretation (test code = 82358-1) Normal [facility] with Nhdn0224-72-69 01:09:06* Test Item Value Reference Range Interpretation Comme nts WBC (test code = 6690-2) 5.42 See_Comment [Automated messa ge] The system which generated this result transmitted reference range: 4.30 - 11.10 10*3/?L. The reference range was not used to interpret this result as normal/abnormal. RBC (test code = 789-8) 4.13 See_Comment [Automated [employer] ge] The system which generated this result transmitted reference range: 3.93 - 5.25 10*6/?L. The reference range was not used to interpret this result as normal/abnormal. HGB (test code = 718-7) 11.2 g/dL 11.6-15.0 L HCT (test code = 4544-3) 38.1 % 35.7-45.2 MCV (test code = 787-2) 92.3 fL 80.6-95.5 MCH (test code = 785-6) 27.1 pg 25.9-32.8 MCHC (test code = 786-4) 29.4 g/dL 31.6-35.1 L RDW-SD (test code = 54621-6) 45.6 fL 39.0-49.9 RDW-CV (test code = 788-0) 13.4 % 12.0-15.5 PLT (test code = 777-3) 234 See_Comment [Automated messa ge] The system which generated this result transmitted reference range: 166 - 358 10*3/?L. The reference range was not used to interpret this result as normal/abnormal. MPV (test code = 13457-4) 11.1 fL 9.5-12.9 NRBC/100 WBC (test code = 1954089985) 0.0 See_Comment [Automated [employer] ssage] The system which generated this result transmitted reference range: 0.0 - 10.0 /100 WBCs. The reference range was not used to interpret this result as normal/abnormal. NRBC x10^3 (test code = 5494909399) See_Comment [Automated messa ge] The system which generated this result transmitted reference range: 10*3/?L. The reference range was not used to interpret this result as normal/abnormal. GRAN MAT (NEUT) % (test code = 770-8) 59.8 % IMM GRAN % (test code = 2812315175) 0.40 % LYMPH % (test code = 736-9) 26.6 % MONO % (test code = 5905-5) 7.9 % EOS % (test code = 713-8) 4.4 % BASO % (test code = 706-2) 0.9 % GRAN MAT x10^3(ANC) (test code = 6594739891) 3.24 10*3/uL 1.88-7.09 IMM GRAN x10^3 (test code = 3148504585) 0.00-0.06 LYMPH x10^3 (test code = 731-0) 1.44 10*3/uL 1.32-3.29 MONO x10^3 (test code = 742-7) 0.43 10*3/uL 0.33-0.92 EOS x10^3 (test code = 711-2) 0.24 10*3/uL 0.03-0.39 BASO x10^3 (test code = 704-7) 0.05 10*3/uL 0.01-0.07 Lab Interpretation (test code = 05342-0) Abnormal [facility] with Zjsd1157-40-61 01:09:06* Test Item Value Reference Range Interpretation Comme nts WBC (test code = 6690-2) 5.42 See_Comment [Automated messa ge] The system which generated this result transmitted reference range: 4.30 - 11.10 10*3/?L. The reference range was not used to interpret this result as normal/abnormal. RBC (test code = 789-8) 4.13 See_Comment [Automated messa ge] The system which generated this result transmitted reference range: 3.93 - 5.25 10*6/?L. The reference range was not used to interpret this result as normal/abnormal. HGB (test code = 718-7) 11.2 g/dL 11.6-15.0 L HCT (test code = 4544-3) 38.1 % 35.7-45.2 MCV (test code = 787-2) 92.3 fL 80.6-95.5 MCH (test code = 785-6) 27.1 pg 25.9-32.8 MCHC (test code = 786-4) 29.4 g/dL 31.6-35.1 L RDW-SD (test code = 13528-8) 45.6 fL 39.0-49.9 RDW-CV (test code = 788-0) 13.4 % 12.0-15.5 PLT (test code = 777-3) 234 See_Comment [Automated messa ge] The system which generated this result transmitted reference range: 166 - 358 10*3/?L. The reference range was not used to interpret this result as normal/abnormal. MPV (test code = 26449-8) 11.1 fL 9.5-12.9 NRBC/100 WBC (test code = 6696764165) 0.0 See_Comment [Automated [employer] ssage] The system which generated this result transmitted reference range: 0.0 - 10.0 /100 WBCs. The reference range was not used to interpret this result as normal/abnormal. NRBC x10^3 (test code = 0932887226) See_Comment [Automated [employer] ge] The system which generated this result transmitted reference range: 10*3/?L. The reference range was not used to interpret this result as normal/abnormal. GRAN MAT (NEUT) % (test code = 770-8) 59.8 % IMM GRAN % (test code = 8619197532) 0.40 % LYMPH % (test code = 736-9) 26.6 % MONO % (test code = 5905-5) 7.9 % EOS % (test code = 713-8) 4.4 % BASO % (test code = 706-2) 0.9 % GRAN MAT x10^3(ANC) (test code = 8359975106) 3.24 10*3/uL 1.88-7.09 IMM GRAN x10^3 (test code = 0860314914) 0.00-0.06 LYMPH x10^3 (test code = 731-0) 1.44 10*3/uL 1.32-3.29 MONO x10^3 (test code = 742-7) 0.43 10*3/uL 0.33-0.92 EOS x10^3 (test code = 711-2) 0.24 10*3/uL 0.03-0.39 BASO x10^3 (test code = 704-7) 0.05 10*3/uL 0.01-0.07 Lab Interpretation (test code = 75632-1) Abnormal [facility] GFPMHJNCIP1289-68-38 22:53:19* Test Item Value Reference Range Interpretation Comme nts POCT Creatinine (test code = 4988400170) 2.0 mg/dL 0.5-1.1 H Lab Interpretation (test cod e = 24864-0) Abnormal [facility] GLUCOSE (AUTOMATED)2023-01-10 13:13:48* Test Item Value Reference Range Interpretation Comme nts POCT GLU (test code = 7000786751) 92 mg/dL 70-110 Lab Interpretation (test cod e = 79652-7) Normal [facility] GLUCOSE (AUTOMATED)2023-01-10 02:15:53* Test Item Value Reference Range Interpretation Comme nts POCT GLU (test code = 9032152478) 115 mg/dL 70-110 H Lab Interpretation (test cod e = 71380-0) Abnormal [facility] GLUCOSE (AUTOMATED)2023-01-09 21:40:02* Test Item Value Reference Range Interpretation Comme nts POCT GLU (test code = 2833743659) 87 mg/dL 70-110 Lab Interpretation (test cod e = 78639-8) Normal [facility] GLUCOSE (AUTOMATED)2023-01-09 16:48:34* Test Item Value Reference Range Interpretation Comme nts POCT GLU (test code = 1135632280) 103 mg/dL 70-110 Lab Interpretation (test cod e = 61296-6) Normal [facility] GLUCOSE (AUTOMATED)2023-01-09 13:04:15* Test Item Value Reference Range Interpretation Comme nts POCT GLU (test code = 1663943965) 100 mg/dL 70-110 Lab Interpretation (test cod e = 28569-7) Normal [facility] (Total Cholesterol, Triglycerides, HDL) - Fiaroxj5841-24-59 10:09:27* Test Item Value Reference Range Interpretation Comme nts CHOL (test code = 7234012044) 131 mg/dL 120-200 HDL (test code = 0408526198) 44 mg/dL >=50 L HDLC RATIO (test code = 3251759315) 3.0 <=4.5 TRIG (test code = 2341327078) 84 mg/dL 30-170 LDL CHOL (test code = 23319-0) 70 mg/dL <=160 VLDL (test code = 5945235433) 17 mg/dL 5-60 Lab Interpretation (test cod e = 64511-7) Abnormal [facility] METABOLIC PANEL (NA, K, CL, CO2, GLUCOSE, BUN, CREATININE, CA)2023-01-09 10:09:07* Test Item Value Reference Range Interpretation Comme nts NA (test code = 9237581957) 141 mmol/L 135-145 K (test code = 0021576812) 4.5 mmol/L 3.5-5.0 CL (test code = 9630429384) 111 mmol/L 98-108 H CO2 TOTAL (test code = 5660667836) 25 mmol/L 23-31 AGAP (test code = 0557919842) 5 2-16 BUN (test code = 4571422085) 26 mg/dL 7-23 H GLUCOSE (test code = 5783457885) 98 mg/dL 70-110 CREATININE (test code = 9292832255) 1.16 mg/dL 0.50-1.04 H CALCIUM (test code = 5926803535) 9.0 mg/dL 8.6-10.6 eGFR (test code = 3786718463) 47.5 mL/min/1.73m2 YFN (test code = YFN) Association of Glomerular Filtration Rate (GFR) and Staging of Kidney Disease* + --+ --+ ------+| GFR (mL/min/1.73 m2) ?| With Kidney Damage ?| ?Without Kidney Damage+ --------+ --------+ +| ?>90 ?| ?Stage one ?| ? Normal ?+ ---+ ---+ -------+| ?60-89 ?| ?Stage two ?| ? Decreased GFR ? + --+ --+ ------+| ?30-59 ?| ?Stage three ?| ? Stage three ? + --+ --+ ------+| ?15-29 ?| ?Stage four ? | ? Stage four ?+ ---+ ---+ -------+| ?<15 (or dialysis) ? ?| ?Stage five ? | ? Stage five ?+ ---+ ---+ -------+ *Each stage assumes the associated GFR level has been in effect for at least three months. ?Stages 1 to 5, with or without kidney disease, indicate chronic kidney disease. Notes: Determination of stages one and two (with eGFR >59mL/min/1.73 m2) requires estimation of kidney damage for at least three months as defined by structural or functional abnormalities of the kidney, manifested by either:Pathological abnormalities or Markers of kidney damage (including abnormalities in the composition of the blood or urine or abnormalities in imaging tests). Lab Interpretation (test code = 59526-6) [facility]normal [facility] 10:09:07* Test Item Value Reference Range Interpretation Comme nts MAGNESIUM (test code = 4455704200) 1.8 mg/dL 1.7-2.4 Lab Interpretation (test cod e = 04087-1) Normal [facility] GLUCOSE (AUTOMATED)2023-01-09 02:16:50* Test Item Value Reference Range Interpretation Comme nts POCT GLU (test code = 3866459549) 79 mg/dL 70-110 Lab Interpretation (test cod e = 74383-1) Normal [facility] GLUCOSE (AUTOMATED)2023-01-08 17:15:08* Test Item Value Reference Range Interpretation Comme nts POCT GLU (test code = 7898759926) 79 mg/dL 70-110 Lab Interpretation (test cod e = 05519-7) Normal [facility] Z8173-42-67 07:09:14* Test Item Value Reference Range Interpretation Comme nts TROPONIN I (test code = 2282029228) 0.018 ng/mL <=0.034 YFN (test code = YFN) Reference (Normal) Range (defined by the 99th percentile reference limit): <= 0.034 ng/mL Note: Cardiac troponin begins to rise 3-4 hours after the onset of ischemia. Repeat in 4-6 hours if the sample was drawn within 3-4 hours of the onset of the symptom and found normal. Diagnosis of myocardial injury is made with acute changes in cTn concentrations with at least one serial sample above the 99th percentile upper reference limit (URL), taken together with the patient's clinical presentation. Biotin has been reported to cause a negative bias, interpret results relative to patient's use of biotin. Lab Interpretation (test code = 88843-0) Normal [facility]. METABOLIC PANEL (82682)2023-01-08 06:58:15* Test Item Value Reference Range Interpretation Comme nts NA (test code = 9848635763) 144 mmol/L 135-145 K (test code = 4553662994) 4.6 mmol/L 3.5-5.0 CL (test code = 0379900677) 109 mmol/L 98-108 H CO2 TOTAL (test code = 9199307770) 26 mmol/L 23-31 AGAP (test code = 2844393120) 9 2-16 BUN (test code = 9350579381) 39 mg/dL 7-23 H GLUCOSE (test code = 1197996557) 97 mg/dL 70-110 CREATININE (test code = 9759721910) 1.52 mg/dL 0.50-1.04 H TOTAL BILI (test code = 4224251217) 0.3 mg/dL 0.1-1.1 CALCIUM (test code = 4545393964) 8.7 mg/dL 8.6-10.6 T PROTEIN (test code = 3010446724) 7.0 g/dL 6.3-8.2 ALBUMIN (test code = 7241055883) 3.8 g/dL 3.5-5.0 ALK PHOS (test code = 5248607134) 85 U/L 34-122 ALTv (test code = 1742-6) 13 U/L 5-35 AST(SGOT) (test code = 4710877556) 20 U/L 13-40 eGFR (test code = 2452222038) 34.8 mL/min/1.73m2 YFN (test code = YFN) Association of Glomerular Filtration Rate (GFR) and Staging of Kidney Disease* + --+ --+ ------+| GFR (mL/min/1.73 m2) ?| With Kidney Damage ?| ?Without Kidney Damage+ --------+ --------+ +| ?>90 ?| ?Stage one ?| ? Normal ?+ ---+ ---+ -------+| ?60-89 ?| ?Stage two ?| ? Decreased GFR ? + --+ --+ ------+| ?30-59 ?| ?Stage three ?| ? Stage three ? + --+ --+ ------+| ?15-29 ?| ?Stage four ? | ? Stage four ?+ ---+ ---+ -------+| ?<15 (or dialysis) ? ?| ?Stage five ? | ? Stage five ?+ ---+ ---+ -------+ *Each stage assumes the associated GFR level has been in effect for at least three months. ?Stages 1 to 5, with or without kidney disease, indicate chronic kidney disease. Notes: Determination of stages one and two (with eGFR >59mL/min/1.73 m2) requires estimation of kidney damage for at least three months as defined by structural or functional abnormalities of the kidney, manifested by either:Pathological abnormalities or Markers of kidney damage (including abnormalities in the composition of the blood or urine or abnormalities in imaging tests). Lab Interpretation (test code = 63173-8) [facility]normal [facility] >30DAYS[facility]2023-01-08 06:12:00* Test Item Value Reference Range Interpretation Comme [facility] POCT Glu (age>30days) (test code = 3342) 99 mg/dL 70-110 Lab Interpretation (test cod e = 64367-9) Normal [facility] WITH ZGSG0464-05-20 05:51:23* Test Item Value Reference Range Interpretation Comme [facility] WBC (test code = 6690-2) 8.06 See_Comment [Automated [employer]] The system which generated this result transmitted reference range: 4.30 - 11.10 10*3/?L. The reference range was not used to interpret this result as normal/abnormal. RBC (test code = 789-8) 4.01 See_Comment [Automated [employer]] The system which generated this result transmitted reference range: 3.93 - 5.25 10*6/?L. The reference range was not used to interpret this result as normal/abnormal. HGB (test code = 718-7) 11.3 g/dL 11.6-15.0 L HCT (test code = 4544-3) 37.0 % 35.7-45.2 MCV (test code = 787-2) 92.3 fL 80.6-95.5 MCH (test code = 785-6) 28.2 pg 25.9-32.8 MCHC (test code = 786-4) 30.5 g/dL 31.6-35.1 L RDW-SD (test code = 07980-9) 52.4 fL 39.0-49.9 H RDW-CV (test code = 788-0) 15.6 % 12.0-15.5 H PLT (test code = 777-3) 197 See_Comment [Automated messa ge] The system which generated this result transmitted reference range: 166 - 358 10*3/?L. The reference range was not used to interpret this result as normal/abnormal. MPV (test code = 73993-6) 10.2 fL 9.5-12.9 NRBC/100 WBC (test code = 9133976230) 0.0 See_Comment [Automated [employer] ssage] The system which generated this result transmitted reference range: 0.0 - 10.0 /100 WBCs. The reference range was not used to interpret this result as normal/abnormal. NRBC x10^3 (test code = 5516882845) See_Comment [Automated messa ge] The system which generated this result transmitted reference range: 10*3/?L. The reference range was not used to interpret this result as normal/abnormal. GRAN MAT (NEUT) % (test code = 770-8) 62.9 % IMM GRAN % (test code = 5173584317) 0.90 % LYMPH % (test code = 736-9) 23.8 % MONO % (test code = 5905-5) 7.6 % EOS % (test code = 713-8) 4.2 % BASO % (test code = 706-2) 0.6 % GRAN MAT x10^3(ANC) (test code = 1027596478) 5.07 10*3/uL 1.88-7.09 IMM GRAN x10^3 (test code = 0686738742) 0.07 10*3/uL 0.00-0.06 H LYMPH x10^3 (test code = 731-0) 1.92 10*3/uL 1.32-3.29 MONO x10^3 (test code = 742-7) 0.61 10*3/uL 0.33-0.92 EOS x10^3 (test code = 711-2) 0.34 10*3/uL 0.03-0.39 BASO x10^3 (test code = 704-7) 0.05 10*3/uL 0.01-0.07 Lab Interpretation (test code = 41688-9) [facility]2023-01-08 05:42:40* Test Item Value Reference Range Interpretation Comme nts POCT GLU (test code = 2388816997) 100 mg/dL 70-110 Lab Interpretation (test cod e = 67558-0) Normal [facility] Notes Date/Time Note Provider Source 2023-08-19 15:15:00 zXQKm5uPyVjhP0PJ2HEe /jyBqdrT+zrFfi91 FqIFykMsx/9BIF7RkR+Kmr3mcEXo1801-77- 09T15:15:00 Images from the original note were not included.Venipuncture collection performed by clean technique on the right anticubitus. Total of 1 attempts were made. Slight pressure and a bandage/dressing were applied to the site(s). The patient experienced no complications. The following specimens were processed according to instructions and sent to [facility] laboratories per lab order on 08/19/2023:LT BLUE 3SST 7REDLAV 1PPTDK GREEN (LiHep)DK GREEN (SodH)GRAYDK BLUE (K2)DK BLUE (S)ACDBlood CultureNIPT/NTDPatient has been identified by and name and was provided with cup, antiseptic towelette, and clean catch instructions. 1 urine specimen(s) sent.Unpreserved 1Urine CultureAptima tubeOther urine 51516-4Pivwp JqrzGN5537-74-56I05:20:51Nurse NoteTXT1.2.840.007445.1.13.104.2.7.2 .218212|[id number] for patient dlxj54488-6Tdtwf NoteLNNARRATIVEFormatted C-CDA narrative text[id number] DSEIKKGIMEDEUMNQOBIPOB0100-42-89I47: 20:511.2.840.877678.1.72.3.15|1.2.84 0.100868.1.13.104.2.7.2.727879_ [address] [facility] 2023-08-19 14:00:00 ZGN/gj74BrnONQy/+E0H BCMWDjTHTSBBsAQN 4xcXEspgED+tYxGk1AQ8UP6e2iaZ3805-92- 09T14:00:00Addended by: TERRENCE ERNANDEZ on: 08/19/2023 06:43 PMModules accepted: Orders 41346-5Tunrequo VhrdckvhCF6818-88-43C40:43:17Addendu teresa DocumentTXT1.2.840.266908.1.13.104.2 .7.2.057258|[id number] for patient yxpv61552-1NypjTFWNDDFMNCLMhuphhwyi C-CDA narrative qwwi180047192Jcrmty M [id number] OBGRTBIHCBLMMGXCJDFKGV4510-85-47Y75: 43:171.2.840.718911.1.72.3.15|1.2.84 0.520320.1.13.104.2.7.2.727879_19947 [address] Terrence Ernandez [facility] 2023-08-19 14:00:00 p2FvZ21JyszItUEDsxPz zWyLMbdpwAGZOOX6 REg19rGuCWduEUcd9rQFme57e5kK0719-16- 09T14:00:00Addended by: MCKENZIE FOX on: 08/20/2023 08:18 AMModules accepted: Orders 08338-0Mgnyvhth ZywgdwgpXT0852-56-64A99:18:17Addendu m DocumentTXT1.2.840.622064.1.13.104.2 .7.2.635599|[id number] for patient nnxe39796-4TbbzKWBETLWRLZKXlvlaejqz C-CDA narrative [id number] [address] Fq[id number] UAXZRNEGBRDOTCQAJFTVHL2354-50-71A35: 18:171.2.840.248635.1.72.3.15|1.2.84 0.415357.1.13.104.2.7.2.727879_19960 [address] Mckenzie [facility] 2023-08-19 12:06:19 fOGyFWm/IVPoPNsF68ij oGsmMeZ+RYZG/vFg l1nIpqbfsb5bxOkwsXKcaR4HCY+d3953-942:06:19 Dr. Barrientos, please review pop up after trying to sign orders and advise.Addendum: I did sign off on the orders. 52595-0Zmflhlfqm encounter RmryZK8533877Iwbidee, Howard Gene1.2.840.220697.1.13.104.2.7.2.83 3952FvcamefZijqsaIrdsAY3485-76-55P08 :42:34Telephone encounter NoteTXT1.2.840.065007.1.13.104.2.7.2 .189450|[id number] for patient svld91024-2VtnmIFPMVXUUOGMFwijyjper C-CDA narrative text[address] Ew[id number] MBCQQNCGDIZGQLQJLDIVHK8146-90-20I65: 42:341.2.840.721498.1.72.3.15|1.2.84 0.227608.1.13.104.2.7.2.727879_19953 [address] [facility]"
--- NOTE | 2023-08-20 22:08 | ER ---
Nurse's Notes [facility] Name: Navarro Baker Age: 63 yrs Sex: Female : 1960 Arrival Date: 08/20/2023 Time: 20:02 Bed 5 Private MD: Brad Key Diagnosis: Fecal impaction Presentation: 08/20 20:28 Chief complaint: Patient states: "I am constipated. I haven't had a bowel movement in 1 cm10 week." Pt states, "I feel a lump like it wants to come out." Pt denies abdominal pain just feels "full.". Coronavirus screen: Vaccine status: Patient reports receiving the 2nd dose of the covid vaccine. Client denies travel out of the [place] in the last 14 days. Ebola Screen: Patient denies travel to an Ebola-affected area in the 21 days before illness onset. No symptoms or risks identified at this time. Initial Sepsis Screen: Does the patient meet any 2 criteria? No. Patient's initial sepsis screen is negative. Does the patient have a suspected source of infection? No. Patient's initial sepsis screen is negative. Risk Assessment: Do you want to hurt yourself or someone else? Patient reports no desire to harm self or others. Onset of symptoms was August 20, 2023. 20:28 Method Of Arrival: Ambulatory 10 20:28 Acuity: ALEJANDRINA 4 cm10 Historical: - Allergies: 20:30 No Known Allergies; cm10 - PMHx: 20:30 Hypothyroidism; morbid obesity; Hypertensive disorder; Cerebrovascular accident; cm10 - PSHx: 20:30 Partial hysterectomy; cm10 - Immunization history:: Adult Immunizations up to date. - Social history:: Smoking status: Patient denies any tobacco usage or history of. Screenin:00 [facility] ED Fall Risk Assessment (Adult) History of falling in the last 3 months, jw7 including since admission No falls in past 3 months (0 pts) Score/Fall Risk Level 0 - 2 = Low Risk Oriented to surroundings, Maintained a safe environment. Abuse screen: Denies threats or abuse. Denies injuries from another. Nutritional screening: No deficits noted. Tuberculosis screening: No symptoms or risk factors identified. Assessment: 21:00 General: Appears in no apparent distress. uncomfortable, Behavior is calm, cooperative. jw7 Neuro: Level of Consciousness is awake, alert, obeys commands, Oriented to person, place, time, situation. Cardiovascular: Capillary refill < 3 seconds Clubbing of nail beds is absent JVD is absent Patient's skin is warm and dry. Respiratory: Airway is patent Trachea midline Respiratory effort is even, unlabored, Respiratory pattern is regular, symmetrical. GI: Abdomen is round obese. : No deficits noted. No signs and/or symptoms were reported regarding the genitourinary system. EENT: No deficits noted. No signs and/or symptoms were reported regarding the EENT system. Derm: Skin is intact, is healthy with good turgor, Skin is dry, Skin is normal, Skin temperature is warm. Musculoskeletal: Circulation, motion, and sensation intact. Range of motion: intact in all extremities. 21:00 Pain: Denies pain. jw7 22:00 General: pt able to pass stool on her own after administration of Fleet Enema. Pt jw7 states "I feel much better now" . Vital Signs: 20:28 BP 130 / 86; Pulse 74; Resp 18 S; Temp 97.7; Pulse Ox 100% on R/A; Weight 149.23 kg; cm10 Height 5 ft. 4 in. ; Pain 0/10; 22:00 BP 128 / 84; Pulse 76; Resp 17 S; Pulse Ox 99% on R/A; jw7 20:28 Body Mass Index 56.47 (149.23 kg, 162.56 cm) cm10 20:28 Pain Scale: Adult cm10 ED Course: 20:08 Patient arrived in ED. es 20:08 Brad Key DO is Private Physician. es 20:10 [facility]C [facility] kb 20:10 Elena Choi MD is Attending Physician. kb 20:30 Triage completed. cm10 20:31 Arm band placed on Patient placed in waiting room. cm10 21:00 Patient has correct armband on for positive identification. Bed in low position. Call jw7 light in reach. Side rails up X2. 22:24 Provided Education on: discharge instructions. jw7 22:24 No provider procedures requiring assistance completed. Patient did not have IV access jw during this emergency room visit. Administered Medications: 21:49 Drug: Fleet Enema FL 133 ml FL once; may repeat once Route: FL; jw7 22:25 Follow up: Response: No adverse reaction; Marked relief of symptoms jw7 Medication: 22:24 VIS not applicable for this client. jw7 Outcome: :08 Discharge ordered by . hasmukh 22:24 Discharged to home ambulatory, jw7 22:24 Condition: stable 22:24 Discharge instructions given to patient, Instructed on discharge instructions, follow up and referral plans. Demonstrated understanding of instructions, follow-up care, 22:26 Patient left the ED. jw7 Signatures: Ginger Reyes FNP-C [employer]AD-Chaya Arechiga Jodi RN RN jw7 Mercy Padilla RN RN cm10 Corrections: (The following items were deleted from the chart) :24 21:00 General: Appears in no apparent distress. uncomfortable, Behavior is calm, jw7 cooperative, jw7 :24 21:00 Pain: Complains of pain in abdomen Pain does not radiate. Pain currently is 3 out jw7 of 10 on a pain scale. Quality of pain is described as crampy, Pain began gradually, Is intermittent, jw7
--- NOTE | 2023-08-20 22:08 | EDPHYS ---
Physician Documentation [facility] Name: Navarro Baker Age: 63 yrs Sex: Female : 1960 Arrival Date: 08/20/2023 Time: 20:02 Bed 5 Private MD: Brad Key ED Physician Elena Choi HPI: 08/20 21:06 This 63 yrs old Black Female presents to ER via Ambulatory with complaints of kb Constipation. 21:06 Pt is a 63 year old female who presents for constipation for one week. States it feels kb like a ball at her rectum. States she had a similar problem last week and was able to have a bowel movement, but it was a large ball and painful to get out. . Historical: - Allergies: 20:30 No Known Allergies; cm10 - PMHx: 20:30 Hypothyroidism; morbid obesity; Hypertensive disorder; Cerebrovascular accident; cm10 - PSHx: 20:30 Partial hysterectomy; cm10 - Immunization history:: Adult Immunizations up to date. - Social history:: Smoking status: Patient denies any tobacco usage or history of. ROS: 21:04 Constitutional: Negative for fever, chills, and weight loss, kb 21:04 Abdomen/GI: Positive for constipation, Negative for abdominal pain, nausea, vomiting, and diarrhea, 21:04 All other systems are negative, Exam: 21:04 Constitutional: This is a well developed, well nourished patient who is awake, alert, kb and in no acute distress. Head/Face: Normocephalic, atraumatic. ENT: Moist Mucous membranes Cardiovascular: Regular rate Respiratory: Respirations even and unlabored. No increased work of breathing. Talking in full sentences Abdomen/GI: Soft, non-tender. No distention Skin: Warm, dry with normal turgor. Normal color. MS/ Extremity: Pulses equal, no cyanosis. Neurovascular intact. Full, normal range of motion. Neuro: Awake and alert, GCS 15, oriented to person, place, time, and situation. Moves all extremities. Normal gait. 21:17 Abdomen/GI: Rectal exam: fecal impaction, that is moderate, pt unable to tolerate kb digital disimpaction. Enema ordered, Vital Signs: 20:28 BP 130 / 86; Pulse 74; Resp 18 S; Temp 97.7; Pulse Ox 100% on R/A; Weight 149.23 kg; cm10 Height 5 ft. 4 in. ; Pain 0/10; 22:00 BP 128 / 84; Pulse 76; Resp 17 S; Pulse Ox 99% on R/A; jw7 20:28 Body Mass Index 56.47 (149.23 kg, 162.56 cm) cm10 20:28 Pain Scale: Adult cm10 MDM: 20:10 Patient medically screened. kb 21:05 Data reviewed: vital signs, nurses notes. kb 21:05 Differential Diagnosis fecal impaction, constipation, bowel obstruction. kb 22:07 Counseling: I had a detailed discussion with the patient and/or guardian regarding the kb historical points, exam findings, and any diagnostic results supporting the discharge/admit diagnosis, the need for outpatient follow up, a family practitioner, to return to the emergency department if symptoms worsen or persist or if there are any questions or concerns that arise at home. ED course: Pt had a large BM after enema, is feeling better and ready to go home. 08/20 20:31 [place] [facility]: place pt in gown ; Complete Time: 21:16 kb Administered Medications: 21:49 Drug: Fleet Enema [place] 133 ml WA once; may repeat once Route: WA; jw7 22:25 Follow up: Response: No adverse reaction; Marked relief of symptoms jw7 Disposition: 08/21 07:04 Co-signature as Attending Physician, Elena Choi MD I agree with the assessment and gb1 plan of care. I reviewed the patient's care provided by the Advanced Practice Provider and agree with the diagnosis and treatment plan. Disposition Summary: 08/20/23 22:08 Discharge Ordered Notes: Location: Home Condition: Stable kb Diagnosis - Fecal impaction kb Followup: kb - With: Emergency Department - When: As needed - Reason: Worsening of condition Followup: kb - With: Private Physician - When: 2 - 3 days - Reason: Recheck today's complaints, Continuance of care, Re-evaluation by your physician Discharge Instructions: - Discharge Summary Sheet kb - Fecal Impaction kb Forms: - Medication Reconciliation Form kb - Thank You Letter kb - Antibiotic Education kb - Prescription Opioid Use kb - Patient Portal Instructions kb - Leadership Thank You Letter kb Signatures: Ginger Reyes FNP-C FNP-Ckb Waits, Jodi, RN RN jw7 Mercy Padilla RN RN cm10 Elena Choi MD MD gb1
[2023-08-21 02:57] VITALS: BP 128/84; TEMP 97.7; O2SAT 99
== END ==
LOC: ER 20:02
DX: K56.41 Fecal impaction (principal)
CPT/HCPCS: 99283